=== PATIENT | female | born 1975 | race Hispanic/Latino ===

== ENCOUNTER 2019-01-27 12:02 | Emergency (ER) | payer SELFPAY ==
[2019-01-27 13:40] LABS: Eosinophils % 0.8 % (0-4.4); Hematocrit 38.5 % (36.0-45.0); Lymphocytes % 18.6 % (15.3-44.8); Monocytes % 8.5 % (3.3-12.3); RBC Red Blood Cell Count 4.39 M/uL (3.86-4.86)
[2019-01-27] MEDS ORDERED: HYDROCODONE/APAP 7.5/325 MG TAB ONE (13:45)
[2019-01-27] MEDS ORDERED: HYDROCODONE/APAP 10/325 TAB ONE (13:46)
[2019-01-27 14:14] LABS: ALT/SGPT 18 U/L (12-78); AST/SGOT 17 U/L (15-37); Albumin 3.2 g/dL (3.4-5.0); Alkaline Phosphatase 68 U/L (45-117); BUN Blood Urea Nitrogen 10 mg/dL (7-18); Bicarbonate 29 mmol/L (21-32); Bilirubin Total 0.5 mg/dL (0.2-1.0); Glucose Level 79 mg/dL (74-106); Potassium 3.6 mmol/L (3.5-5.1); Protein, Total 6.9 g/dL (6.4-8.2); Sodium Level 140 mmol/L (136-145)
--- NOTE | 2019-01-27 14:36 | ER ---
Nurse's Notes [facility] Name: Carmen Macias Age: 43 yrs Sex: Female : 1975 Arrival Date: 01/27/2019 Time: 12:05 Bed 23 Private MD: Diagnosis: Polyarthralgia Presentation: 01/27 12:09 Presenting complaint: Patient states: "all my joints have been hurting for about a week aa5 and I am taking Prednisone 5mg now but it's not helping". Pt also reports lower abd pain that began 1 week ago. Transition of care: patient was not received from another setting of care. Onset of symptoms was January 2019. Risk Assessment: Do you want to hurt yourself or someone else? Patient reports no desire to harm self or others. Initial Sepsis Screen: Does the patient meet any 2 criteria? No. Patient's initial sepsis screen is negative. Does the patient have a suspected source of infection? No. Patient's initial sepsis screen is negative. Care prior to arrival: None. 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 - Social history:: Smoking status: Patient uses tobacco products, 1 cigarette a day . - Ebola Screening: : No symptoms or risks identified at this time. Screenin:06 Abuse screen: Denies threats or abuse. Denies injuries from another. Nutritional ca1 screening: No deficits noted. Tuberculosis screening: No symptoms or risk factors identified. Fall Risk IV access (20 points). Assessment: 13:06 General: Appears in no apparent distress. comfortable, Behavior is calm, cooperative, ca1 appropriate for age. Pain: Complains of pain in all over Pain currently is 7 out of 10 on a pain scale. Pain began 2-3 days ago. Neuro: Level of Consciousness is awake, alert, obeys commands, Oriented to person, place, time, situation. Neuro: Reports dizziness. Cardiovascular: Heart tones S1 S2 present Capillary refill < 3 seconds Patient's skin is warm and dry. Respiratory: Airway is patent Respiratory effort is even, unlabored, Respiratory pattern is regular, symmetrical, Breath sounds are clear bilaterally. GI: Abdomen is round non-distended, Bowel sounds present X 4 quads. Abd is soft and non tender X 4 quads. : No deficits noted. No signs and/or symptoms were reported regarding the genitourinary system. EENT: No deficits noted. No signs and/or symptoms were reported regarding the EENT system. Derm: Skin is intact, is healthy with good turgor, Skin is pink, warm \\T\\ dry. Musculoskeletal: Circulation, motion, and sensation intact. Capillary refill < 3 seconds, Range of motion: intact in all extremities. 14:00 Reassessment: Patient appears in no apparent distress at this time. Patient and/or ca1 family updated on plan of care and expected duration. Pain level reassessed. Patient is alert, oriented x 3, equal unlabored respirations, skin warm/dry/pink. Vital Signs: 12:12 BP 181 / 107; Pulse 87; Resp 16 S; Temp 98.1(O); Pulse Ox 99% on R/A; Weight 79.38 kg aa5 (R); Height 5 ft. 0 in. (152.40 cm) (R); Pain 7/10; 14:00 BP 148 / 89; Pulse 72; Resp 16 A; Temp 97.6(O); Pulse Ox 97% ; ca1 12:12 Body Mass Index 34.18 (79.38 kg, 152.40 cm) aa5 ED Course: 12:05 Patient arrived in ED. rg4 12:09 Arm band placed on. aa5 12:11 Triage completed. aa5 12:13 Mark Kenney, RN is Primary Nurse. ae4 12:43 Vinny Catherine MD is Attending Physician. ps1 13:01 Primary Nurse role handed off by Mark Kenney, [place] ca1 13:01 Anjelica Velasquez, DE is Primary Nurse. ca1 13:06 Patient has correct armband on for positive identification. Placed in gown. Bed in low ca1 position. Call light in reach. Side rails up X 1. Pulse ox on. NIBP on. Warm blanket given. 13:06 No provider procedures requiring assistance completed. ca1 14:46 Patient did not have IV access during this emergency room visit. ca1 Administered Medications: 13:33 Drug: [place] 10 mg-325 mg 1 tabs Route: PO; ca1 14:40 Follow up: Response: No adverse reaction; Pain is decreased ca1 Outcome: 14:36 Discharge ordered by . ps1 14:46 Discharged to home ambulatory. ca1 14:46 Condition: stable 14:46 Discharge instructions given to patient, Instructed on discharge instructions, follow up and referral plans. medication usage, Demonstrated understanding of instructions, follow-up care, medications, Prescriptions given X 2. 14:47 Patient left the ED. ca1 Signatures: Cici Dave, RN RN aa5 Anni Molina rg4 Vinny Catherine MD MD ps1 Anjelica Velasquez RN RN ca1 Mark Kenney RN RN ae4
--- NOTE | 2019-01-27 14:37 | EDPHYS ---
Physician Documentation [facility] Name: Carmen Macias Age: 43 yrs Sex: Female : 1975 Arrival Date: 01/27/2019 Time: 12:05 Bed 23 Private MD: ED Physician Vinny Catherine HPI: 01/27 14:27 This 43 yrs old Female presents to ER via Ambulatory with complaints of Lupus ps1 Flare Up. 14:27 patient has a reported history of lupus. She has been seen and evaluated multiple times ps1 before in the past in [place] where she previously lived. She was referred to rheumatology previously but did not go 2/2 financial issues and lack of insurance. She was recently seen in [place] for same and rx'd norco. Previously mangaged with MTX and currently on prednisone but has tapered down because the doctor does not want her on chronic steroids and is not on alternative therapy. She states that she has polyarthralgia worse in the right ankle. Has subjective fever. No erythema to affected joints. No hx of kidney disease. . 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 - Social history:: Smoking status: Patient uses tobacco products, 1 cigarette a day . - Ebola Screening: : No symptoms or risks identified at this time. ROS: 14:27 Constitutional: Negative for fever, chills, and weight loss, Eyes: Negative for injury, ps1 pain, redness, and discharge, Cardiovascular: Negative for chest pain, palpitations, and edema, Respiratory: Negative for shortness of breath, cough, wheezing, and pleuritic chest pain, Abdomen/GI: Negative for abdominal pain, nausea, vomiting, diarrhea, and constipation, Skin: Negative for injury, rash, and discoloration. 14:27 MS/extremity: Positive for polyarthralgia of bilateral ankles and shoulders. No obvious deformity or erythema. . Exam: 14:27 Constitutional: This is a well developed, well nourished patient who is awake, alert, ps1 and in no acute distress. Head/Face: Normocephalic, atraumatic. Eyes: Pupils equal round and reactive to light, extra-ocular motions intact. Lids and lashes normal. Conjunctiva and sclera are non-icteric and not injected. Chest/axilla: Normal chest wall appearance and motion. Nontender with no deformity. No lesions are appreciated. Cardiovascular: Regular rate and rhythm. No gallops, murmurs, or rubs. Normal PMI, no JVD. No pulse deficits. Respiratory: Lungs have equal breath sounds bilaterally, clear to auscultation and percussion. No rales, rhonchi or wheezes noted. No increased work of breathing, no retractions or nasal flaring. Abdomen/GI: Soft, non-tender, with normal bowel sounds. No distension or tympany. No guarding or rebound. No evidence of tenderness throughout. MS/ Extremity: Pulses equal, no cyanosis. Neurovascular intact. Full, normal range of motion. Neuro: Awake and alert, GCS 15, oriented to person, place, time, and situation. Cranial nerves II-XII grossly intact. Sensory grossly intact. Psych: Awake, alert, with orientation to person, place and time. Behavior, mood, and affect are within normal limits. Vital Signs: 12:12 BP 181 / 107; Pulse 87; Resp 16 S; Temp 98.1(O); Pulse Ox 99% on R/A; Weight 79.38 kg aa5 (R); Height 5 ft. 0 in. (152.40 cm) (R); Pain 7/10; 14:00 BP 148 / 89; Pulse 72; Resp 16 A; Temp 97.6(O); Pulse Ox 97% ; ca1 12:12 Body Mass Index 34.18 (79.38 kg, 152.40 cm) aa5 MDM: 14:09 Patient medically screened. ps1 14:27 Data reviewed: vital signs, nurses notes, lab test result(s), and as a result, I will ps1 discharge patient. 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 ED course: referral to Rheumatology. Can use [facility]. Call access center. Home with medrol. No fever. Stable for discharge. . 01/27 13:03 Order name: CBC with Diff; Complete Time: 14:09 ps1 01/27 13:03 Order name: CMP; Complete Time: 14:26 ps1 01/27 13:03 Order name: ESR; Complete Time: 14:09 ps1 01/27 13:34 Order name: Urine Dipstick--Ancillary (enter results) em1 01/27 13:34 Order name: Urine --Ancillary (enter results) em1 01/27 13:34 Order name: Urine Dipstick-Ancillary (obtain specimen); Complete Time: 13:34 em1 01/27 13:34 Order name: Urine Test (obtain specimen); Complete Time: 13:34 em1 Administered Medications: 13:33 Drug: [place] 10 mg-325 mg 1 tabs Route: PO; ca1 14:40 Follow up: Response: No adverse reaction; Pain is decreased ca1 Disposition: 01/27/19 14:36 Discharged to Home. Impression: Polyarthralgia. - Condition is Stable. - Discharge Instructions: Systemic Lupus Erythematosus, Adult. - Prescriptions for Medrol (Suraj) 4 mg Oral Tablets, Dose Pack - take 1 tablet by ORAL route as directed - follow package instructions; 1 packet. Ultram 50 mg Oral Tablet - take 1 tablet by ORAL route every 6 hours As needed; 12 tablet. - Medication Reconciliation Form, Thank You Letter, Antibiotic Education, Prescription Opioid Use form. - Follow up: Emergency Department; When: As needed; Reason: Fever > 102 F, Trouble breathing, Worsening of condition. Follow up: Private Physician; When: As needed; Reason: If symptoms return, Further diagnostic work-up, Recheck today's complaints, Continuance of care. - Problem is an acute exacerbation. - Symptoms are unchanged. Signatures: Dispatcher [employer] EDEMS Graeme Sosa em1 Cici Dave, RN RN aa5 Vinny Catherine MD MD ps1 Anjelica Velasquez RN RN ca1 Corrections: (The following items were deleted from the chart) 14:30 14:27 patient has a reported history of lupus. She has been seen and evaluated multiple ps1 times before in the past in [place] where she previously lived. She was referred to rheumatology previously but did not go 2/2 financial issues and lack of insurance. She was recently seen in [place] for same and rx'd noroh. She states that she has polyarthralgia worse in the right ankle. Has subjective fever. No erythema to affected joints. No hx of kidney disease. . ps1 14:47 14:36 01/27/2019 14:36 Discharged to Home. Impression: Polyarthralgia. Condition is ca1 Stable. Forms are Medication Reconciliation Form, Thank You Letter, Antibiotic Education, Prescription Opioid Use. Follow up: Emergency Department; When: As needed; Reason: Fever > 102 F, Trouble breathing, Worsening of condition. Follow up: Private Physician; When: As needed; Reason: If symptoms return, Further diagnostic work-up, Recheck today's complaints, Continuance of care. Problem is an acute exacerbation. Symptoms are unchanged. ps1
[2019-01-27 15:20] LABS: Urine Blood NEGATIVE (NEG); Urine Glucose NEGATIVE (NEG); Urine Protein TRACE (NEG); Urine Specific Gravity 1.025 (1.005-1.030)
== END 2019-01-27 14:47 | disposition home or self-care (01) ==
LOC: ER 12:02
DX: M25.50 Pain in unspecified joint (principal); M32.9 Systemic lupus erythematosus, unspecified; F31.9 Bipolar disorder, unspecified; Z72.0 Tobacco use
CPT/HCPCS: 36415; 80053; 81003; 81025; 85025; 85652; 99283

== ENCOUNTER 2019-01-30 13:28 | Emergency (ER) | payer SELFPAY ==
[2019-01-30 14:51] LABS: Urine Blood NEGATIVE (NEG); Urine Glucose NEGATIVE (NEG); Urine Protein 1+ (NEG); Urine Specific Gravity 1.025 (1.005-1.030); Urine pH 5.5 (5.0-7.0)
[2019-01-30] MEDS ORDERED: FLUCONAZOLE 100 MG TAB ONE (16:05)
--- NOTE | 2019-01-30 16:48 | ER ---
Nurse's Notes [facility] Name: Carmen Macias Age: 43 yrs Sex: Female : 1975 Arrival Date: 01/30/2019 Time: 13:30 Bed 7 Private MD: Diagnosis: Bacterial Vaginosis Presentation: 01/30 14:07 Presenting complaint: Patient states: Suprapubic/lower abdominal pain x 3 weeks, ph irregular menses w/ 3 periods this month, and foul smelling odor from vagina, states, " I did have unprotected sex w/ someone a few weeks ago." Denies fever, N/V/D. Transition of care: patient was not received from another setting of care. Onset of symptoms was January 30, 2019. Risk Assessment: Do you want to hurt yourself or someone else? Patient reports no desire to harm self or others. Initial Sepsis Screen: Does the patient meet any 2 criteria? No. Patient's initial sepsis screen is negative. Does the patient have a suspected source of infection? Yes: Dysuria/Frequency/Urgency/UTI. Care prior to arrival: None. 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 - Social history:: Smoking status: Patient uses tobacco products, denies chronic smoking, but will smoke occasionally. - Ebola Screening: : No symptoms or risks identified at this time. Screenin:55 Abuse screen: Denies threats or abuse. Denies injuries from another. Nutritional sg screening: No deficits noted. Tuberculosis screening: No symptoms or risk factors identified. Never had TB. Fall Risk None identified. Assessment: 15:10 General: Appears in no apparent distress. uncomfortable, well developed, Behavior is sv calm, cooperative, appropriate for age. Pain: Complains of pain in pelvis. Neuro: Level of Consciousness is awake, alert, obeys commands, Oriented to person, place, time, situation, Moves all extremities. Full function Gait is steady. Respiratory: Respiratory effort is even, unlabored, Respiratory pattern is regular, symmetrical. GI: Abdomen is round non-distended, Abd is soft and non tender X 4 quads. Reports lower abdominal pain, cramping. : Reports burning with urination, vaginal pain. : Reports foul vaginal odor. Derm: Skin is pink, warm \\T\\ dry. 16:50 Reassessment: Patient appears in no apparent distress at this time. Patient and/or sg family updated on plan of care and expected duration. Pain level reassessed. Patient is alert, oriented x 3, equal unlabored respirations, skin warm/dry/pink. pt requesting to go home at this time, pt updated on results, informed that discharge orders are put in and will be discharged to home Patient states feeling better. 17:14 Reassessment: pt wishes to be contacted at [phone]. sg Vital Signs: 14:12 BP 170 / 109; Pulse 78; Resp 18; Temp 98.0; Pulse Ox 100% on R/A; Weight 77.11 kg; ph 16:00 BP 136 / 87; Pulse 77; Resp 17; Temp 98.0; Pulse Ox 100% on R/A; sg ED Course: 13:30 Patient arrived in ED. as 14:11 Triage completed. ph 14:12 Arm band placed on Patient placed in an exam room. ph 14:17 Terrance Moe MD is Attending Physician. kdr 14:17 Cinthya Lott, [place] is Primary Nurse. sv 14:21 Urine collected: clean catch specimen, cloudy, antony colored. jb1 14:50 Patient has correct armband on for positive identification. Bed in low position. Call ss light in reach. Side rails up X2. Pulse ox on. NIBP on. 15:10 Assist provider with pelvic exam: Set up pelvic tray. Performed by Terrance Moe MD sv Specimens sent to lab. Patient tolerated well. 16:55 No provider procedures requiring assistance completed. Patient did not have IV access sg during this emergency room visit. Administered Medications: 16:05 Drug: DiFLUcan 150 mg Route: PO; sg 16:15 Follow up: Response: No adverse reaction sv Outcome: 16:47 Discharge ordered by . kdr 16:58 Discharged to home ambulatory, with family. sg 16:58 Condition: good 16:58 Discharge instructions given to patient, Instructed on discharge instructions, follow up and referral plans. no drinking with medication, medication usage, safe sex practices, control, Demonstrated understanding of instructions, follow-up care, medications, Prescriptions given X 1. Signatures: Misha Tesfaye jb1 Cinthya Lott RN RN Antoni Membreno RN RN Terrance Moe MD MD [facility] Rachel Sosa Shelby, RN RN Joselin Mckinnon RN RN ph Corrections: (The following items were deleted from the chart) 17:02 16:58 Patient left the ED. [facility] 17: 16:55 Discharged to home ambulatory, with family, [facility] 17: 16:55 Condition: [facility] 17: 16:55 Discharge instructions given to patient, Instructed on discharge instructions, ss follow up and referral plans. no drinking with medication, medication usage, safe sex practices, safety practices, control, Demonstrated understanding of instructions, follow-up care, medications, Prescriptions given X 1, 17: 16:55 No provider procedures requiring assistance completed. [facility] 17: 16:55 Patient did not have IV access during this emergency room visit. [facility] 17: 16:00 BP 136 / 87; Pulse 77bpm; Resp 17bpm; Pulse Ox 100% RA; Temp 98.0F; [facility] 17: 14:55 Abuse screen: Denies threats or abuse. Denies injuries from another. [facility] 17: 14:55 Nutritional screening: No deficits noted. [facility] 17: 14:55 Tuberculosis screening: No symptoms or risk factors identified. Never had TB. [facility] 17: 14:55 Fall Risk None identified. [facility]
--- NOTE | 2019-01-30 16:48 | EDPHYS ---
Physician Documentation [facility] Name: Carmen Macias Age: 43 yrs Sex: Female : 1975 Arrival Date: 01/30/2019 Time: 13:30 Bed 7 Private MD: ED Physician Terrance Moe HPI: 01/30 19:06 This 43 yrs old Female presents to ER via Ambulatory with complaints of kdr Abdominal Pain. 19:06 The patient presents with abdominal pain in the lower abdomen. Onset: The kdr symptoms/episode began/occurred gradually, 2 week(s) ago. The symptoms do not radiate. Associated signs and symptoms: Pertinent positives: vaginal discharge, Foul smelling . The symptoms are described as achy, burning, vague. Modifying factors: The symptoms are alleviated by nothing, the symptoms are aggravated by nothing. Severity of pain: At its worst the pain was mild in the emergency department the pain is unchanged. The patient has not experienced similar symptoms in the past. The patient has not recently seen a physician. Had unprotected sex about a month ago. 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 - Social history:: Smoking status: Patient uses tobacco products, denies chronic smoking, but will smoke occasionally. - Ebola Screening: : No symptoms or risks identified at this time. ROS: 19:06 Constitutional: Negative for fever, chills, and weight loss, Eyes: Negative for injury, kdr pain, redness, and discharge, ENT: Negative for injury, pain, and discharge, Neck: Negative for injury, pain, and swelling, Cardiovascular: Negative for chest pain, palpitations, and edema, Respiratory: Negative for shortness of breath, cough, wheezing, and pleuritic chest pain, Abdomen/GI: Negative for abdominal pain, nausea, vomiting, diarrhea, and constipation, Back: Negative for injury and pain, MS/Extremity: Negative for injury and deformity, Skin: Negative for injury, rash, and discoloration, Neuro: Negative for headache, weakness, numbness, tingling, and seizure activity. Psych: Negative for depression, anxiety, suicide ideation, homicidal ideation, and hallucinations, Allergy/Immunology: Negative for hives, rash, and allergies, Endocrine: Negative for neck swelling, polydipsia, polyuria, polyphagia, and marked weight changes, Hematologic/Lymphatic: Negative for swollen nodes, abnormal bleeding, and unusual bruising. 19:06 : Positive for vaginal discharge, vaginal itching. Exam: 19:06 Constitutional: This is a well developed, well nourished patient who is awake, alert, kdr and in no acute distress. Head/Face: Normocephalic, atraumatic. Eyes: Pupils equal round and reactive to light, extra-ocular motions intact. Lids and lashes normal. Conjunctiva and sclera are non-icteric and not injected. Cornea within normal limits. Periorbital areas with no swelling, redness, or edema. Neck: Trachea midline, no thyromegaly or masses palpated, and no cervical lymphadenopathy. Supple, full range of motion without nuchal rigidity, or vertebral point tenderness. No Meningismus. Chest/axilla: Normal chest wall appearance and motion. Nontender with no deformity. No lesions are appreciated. Cardiovascular: Regular rate and rhythm with a normal S1 and S2. No gallops, murmurs, or rubs. Normal PMI, no JVD. No pulse deficits. Respiratory: Lungs have equal breath sounds bilaterally, clear to auscultation and percussion. No rales, rhonchi or wheezes noted. No increased work of breathing, no retractions or nasal flaring. Back: No spinal tenderness. No costovertebral tenderness. Full range of motion. Skin: Warm, dry with normal turgor. Normal color with no rashes, no lesions, and no evidence of cellulitis. MS/ Extremity: Pulses equal, no cyanosis. Neurovascular intact. Full, normal range of motion. Neuro: Awake and alert, GCS 15, oriented to person, place, time, and situation. Cranial nerves II-XII grossly intact. Motor strength 5/5 in all extremities. Sensory grossly intact. Cerebellar exam normal. Normal gait. Psych: Awake, alert, with orientation to person, place and time. Behavior, mood, and affect are within normal limits. 19:06 Abdomen/GI: Inspection: abdomen appears normal, Bowel sounds: normal, Palpation: soft, nontender. 19:06 : CVA tenderness, is absent, Pelvic Exam: External exam: is normal, Speculum exam: no bleeding is noted, no cervicitis, Yeast like vaginal discharge and foul oder. Vital Signs: 14:12 BP 170 / 109; Pulse 78; Resp 18; Temp 98.0; Pulse Ox 100% on R/A; Weight 77.11 kg; ph 16:00 BP 136 / 87; Pulse 77; Resp 17; Temp 98.0; Pulse Ox 100% on R/A; sg MDM: 16:47 Patient medically screened. kdr 19:06 Data reviewed: vital signs, nurses notes, lab test result(s), radiologic studies. kdr Counseling: I had a detailed discussion with the patient and/or guardian regarding: the historical points, exam findings, and any diagnostic results supporting the discharge/admit diagnosis, lab results, the need for outpatient follow up. 01/30 14:20 Order name: Urine Dipstick--Ancillary (enter results); Complete Time: 15:05 ag 01/30 14:20 Order name: Urine --Ancillary (enter results); Complete Time: 15:05 ag 01/30 15:22 Order name: GC (GONORR/CHLAMYDIA) Probe sv 01/30 15:22 Order name: Wet Prep sv Administered Medications: 16:05 Drug: DiFLUcan 150 mg Route: PO; sg 16:15 Follow up: Response: No adverse reaction sv Disposition: 01/30/19 16:47 Discharged to Home. Impression: Bacterial Vaginosis. - Condition is Stable. - Discharge Instructions: Bacterial Vaginosis, [id number]. - Prescriptions for Flagyl 500 mg Oral Tablet - take 1 tablet by ORAL route every 12 hours for 7 days; 14 tablet. - Medication Reconciliation Form, Thank You Letter, Antibiotic Education form. - Follow up: Private Physician; When: 2 - 3 days; Reason: If symptoms return, Further diagnostic work-up, Recheck today's complaints, Continuance of care, Re-evaluation by your physician. - Problem is new. - Symptoms have improved. Signatures: Dispatcher [employer] Antoni Coon RN RN Terrance Moe MD MD [facility] Breonna Juarez RN RN ss Joselin Mckinnon RN RN ph Kaylie, Cinthya KC sv Corrections: (The following items were deleted from the chart) 15:28 15:06 BASIC METABOLIC PANEL+C.LAB.BRZ ordered. EDMS EDMS 15:28 15:06 HEPATIC FUNCTION+C.LAB.BRZ ordered. EDMS EDMS 15:28 15:06 LIPASE+C.LAB.BRZ ordered. EDMS EDMS 15:29 15:06 CBC+H.LAB.BRZ ordered. EDMS EDMS 15:29 15:06 Creatinine for Radiology+C.LAB.BRZ ordered. EDMS EDMS 16:13 15:05 IV Saline Lock ordered. kdr sg 16:13 15:05 Labs collected and sent ordered. kdr sg 16:58 16:47 01/30/2019 16:47 Discharged to Home. Impression: Bacterial Vaginosis. Condition ss is Stable. Forms are Medication Reconciliation Form, Thank You Letter, Antibiotic Education, Prescription Opioid Use. Follow up: Private Physician; When: 2 - 3 days; Reason: If symptoms return, Further diagnostic work-up, Recheck today's complaints, Continuance of care, Re-evaluation by your physician. Problem is new. Symptoms have improved. kdr
[2019-02-02 01:58] LABS: C.trachomatis RNA,TMA Not Detected (Not Detected)
== END 2019-01-30 16:58 | disposition home or self-care (01) ==
LOC: ER 13:28
DX: N76.0 Acute vaginitis (principal); F31.9 Bipolar disorder, unspecified; Z72.0 Tobacco use
CPT/HCPCS: 81003; 81025; 87210; 87490; 87590; 99284

== ENCOUNTER 2019-02-23 16:47 | Emergency (ER) | payer SELFPAY ==
[2019-02-23 18:00] LABS: Urine Blood TRACE (NEG); Urine Glucose NEGATIVE (NEG); Urine Protein NEGATIVE (NEG)
[2019-02-23 18:07] LABS: Urine Bacteria 20-50 /HPF (<20)
[2019-02-23 18:08] LABS: Urine Amorphous Sediment TRACE /HPF (NONE SEEN); Urine Culture Reflex Order ND; Urine Mucus 2+ /HPF (NONE SEEN)
[2019-02-23 18:10] LABS: Basophils % 1.4 % (0-1.3); Hematocrit 38.7 % (36.0-45.0); Lymphocytes % 24.9 % (15.3-44.8); MPV 7.6 fL (7.6-11.3); RBC Red Blood Cell Count 4.49 M/uL (3.86-4.86)
[2019-02-23] MEDS ORDERED: ONDANSETRON 4 MG/2 ML VIAL ONE (18:19)
[2019-02-23] MEDS ORDERED: NA CHLORIDE 0.9% 1,000 ML ONE (18:19)
[2019-02-23 18:39] LABS: ALT/SGPT 25 U/L (12-78); AST/SGOT 16 U/L (15-37); Albumin 3.1 g/dL (3.4-5.0); Alkaline Phosphatase 86 U/L (45-117); BUN Blood Urea Nitrogen 15 mg/dL (7-18); Bicarbonate 28 mmol/L (21-32); Bilirubin Direct < 0.1 mg/dL (0-0.2); Bilirubin Total 0.2 mg/dL (0.2-1.0); Glucose Level 106 mg/dL (74-106); Potassium 3.4 mmol/L (3.5-5.1); Protein, Total 7.3 g/dL (6.4-8.2); Sodium Level 141 mmol/L (136-145)
[2019-02-23] MEDS ORDERED: dexAMETHasone 10 MG/ML VIAL ONE ×2 (19:18→19:19)
--- NOTE | 2019-02-23 19:29 | ER ---
Nurse's Notes [facility] Name: Carmen Macias Age: 43 yrs Sex: Female : 1975 Arrival Date: 02/23/2019 Time: 16:50 Bed 25 Private MD: Diagnosis: Other chronic pain Presentation: 02/23 16:52 Presenting complaint: Patient states: hx of lupus; "i think i have lupus flare, pain hj all over my body and its getting worse since , i think i need prednisone"; reports fever;. Transition of care: patient was not received from another setting of care. Onset of symptoms was February 23, 2019. Risk Assessment: Do you want to hurt yourself or someone else? Patient reports no desire to harm self or others. Initial Sepsis Screen: Does the patient meet any 2 criteria? No. Patient's initial sepsis screen is negative. Does the patient have a suspected source of infection? No. Patient's initial sepsis screen is negative. Care prior to arrival: None. 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 - Social history:: Smoking status: unknown. - Ebola Screening: : No symptoms or risks identified at this time. Screenin:23 Abuse screen: Denies threats or abuse. Denies injuries from another. Nutritional rv screening: No deficits noted. Tuberculosis screening: No symptoms or risk factors identified. Fall Risk None identified. Assessment: 17:23 General: Appears in no apparent distress. uncomfortable, Behavior is calm, cooperative. rv Pain: Complains of pain in GENERALIZED. Neuro: Level of Consciousness is awake, alert, obeys commands, Oriented to person, place, time, situation. Cardiovascular: Patient's skin is warm and dry. Respiratory: Airway is patent. GI: No signs and/or symptoms were reported involving the gastrointestinal system. : No signs and/or symptoms were reported regarding the genitourinary system. EENT: No signs and/or symptoms were reported regarding the EENT system. Derm: Skin is intact. Musculoskeletal: Reports pain in GENERALIZED. Vital Signs: 16:54 BP 169 / 109; Pulse 102; Resp 18; Temp 97.8(O); Pulse Ox 98% on R/A; Weight 81.65 kg; hj Height 5 ft. 0 in. (152.40 cm); Pain 10/10; 19:30 BP 116 / 89; Pulse 81; Resp 18; Pulse Ox 100% on R/A; rv 16:54 Body Mass Index 35.15 (81.65 kg, 152.40 cm) hj ED Course: 16:50 Patient arrived in ED. mr 16:53 Triage completed. hj 16:54 Arm band placed on left wrist. hj 17:04 Singh Rey PA is PHCP. cp 17:04 Mik Boyd MD is Attending Physician. cp 17:22 Ok Coker RN is Primary Nurse. rv 17:24 Patient has correct armband on for positive identification. Bed in low position. Call rv light in reach. Side rails up X 1. Adult w/ patient. Pulse ox on. NIBP on. 18:30 Inserted saline lock: 22 gauge in left forearm, using aseptic technique. Blood rv collected. 19:33 No provider procedures requiring assistance completed. IV discontinued, intact, rv bleeding controlled, No redness/swelling at site. Pressure dressing applied. Administered Medications: 18:24 Drug: TORadol 30 mg Route: IVP; Site: left antecubital; rv 19:31 Follow up: Response: Marked relief of symptoms; Pain is decreased rv 18:24 Drug: NS 0.9% 1000 ml Route: IV; Rate: 1 bolus; Site: left antecubital; rv 19:31 Follow up: IV Status: Completed infusion; IV Intake: 1000ml rv 19:30 Drug: Decadron - Dexamethasone 10 mg Route: IVP; Site: left forearm; rv 19:31 Follow up: Response: Medication administered at discharge. rv Intake: 19:31 IV: 1000ml; Total: 1000ml. rv Outcome: 19:28 Discharge ordered by . cp 19:33 Discharged to home ambulatory. rv 19:33 Condition: stable 19:33 Discharge instructions given to patient, Instructed on discharge instructions, follow up and referral plans. Demonstrated understanding of instructions, follow-up care. 19:39 Patient left the ED. rv Signatures: Pina DelacruzSonny RN RN hj Singh Rey PA PA cp Vicente, Ronaldo, RN RN rv Corrections: (The following items were deleted from the chart) 16:56 16:54 Pulse 102bpm; Resp 18bpm; Pulse Ox 98% RA; Temp 97.8F Oral; 81.65 kg; Height 5 hj ft. 0 in.; BMI: 35.1; Pain 10/10; hj
--- NOTE | 2019-02-23 19:29 | EDPHYS ---
Physician Documentation [facility] Name: Carmen Macias Age: 43 yrs Sex: Female : 1975 Arrival Date: 02/23/2019 Time: 16:50 Bed 25 Private MD: ED Physician Mik Boyd HPI: 02/23 17:50 This 43 yrs old Female presents to ER via Ambulatory with complaints of Pain cp All Over. 17:50 generalized pain and joint pain. Patient reports history of Lupus and recently moving to [place]. Patient reports increasing generalized and multiple joint pain and a flare up of Lupus. Reports subjective fever. Patient admits to not following up with primary physician or rheumatology since last visit to this ED due to financial cost and lack of insurance. 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 - Social history:: Smoking status: unknown. - Ebola Screening: : No symptoms or risks identified at this time. ROS: 18:00 Constitutional: Positive for generalized pain, Negative for body aches, chills, fever, cp poor PO intake. 18:00 Cardiovascular: Negative for chest pain, edema, palpitations. 18:00 Respiratory: Negative for cough, shortness of breath, wheezing. 18:00 Abdomen/GI: Negative for abdominal pain, nausea, vomiting, and diarrhea, constipation, black/tarry stool, rectal bleeding. 18:00 MS/extremity: Positive for generalized joint pain, Negative for injury or acute deformity, paresthesias. 18:00 Skin: Negative for cellulitis, rash. 18:00 Neuro: Negative for altered mental status, headache, weakness. 18:00 All other systems are negative. Exam: 18:05 Constitutional: The patient appears in no acute distress, alert, awake, cp non-diaphoretic, non-toxic, well developed, well nourished. 18:05 Head/Face: Normocephalic, atraumatic. cp 18:05 Eyes: Periorbital structures: appear normal, Conjunctiva: normal, no exudate, no injection, Sclera: no appreciated abnormality, Lids and lashes: appear normal, bilaterally. 18:05 ENT: External ear(s): are unremarkable, Nose: is normal, Mouth: is normal, Posterior pharynx: is normal, airway is patent, no erythema, no exudate. 18:05 Neck: ROM/movement: is normal, is supple, no meningismus, no nuchal rigidity. 18:05 Chest/axilla: Inspection: normal, Palpation: is normal, no crepitus, no tenderness. 18:05 Cardiovascular: Rate: tachycardic, Rhythm: regular, Edema: is not appreciated, JVD: is not appreciated. 18:05 Respiratory: the patient does not display signs of respiratory distress, Respirations: normal, no use of accessory muscles, no retractions, no splinting, no tachypnea, labored breathing, is not present, Breath sounds: are clear throughout, no decreased breath sounds, no stridor, no wheezing. 18:05 Abdomen/GI: Inspection: abdomen appears normal, Palpation: abdomen is soft and non-tender, in all quadrants. 18:05 Musculoskeletal/extremity: ROM: intact in all extremities, Circulation is intact in all extremities. Joints: All joints are normal except pain in multiple joints without significant swelling or erythema noted. 18:05 Skin: cellulitis, is not appreciated, no rash present. 18:05 Neuro: Orientation: to person, place \T\ time. Mentation: is normal, Motor: moves all fours, strength is normal, Sensation: is normal, Gait: is steady. Vital Signs: 16:54 BP 169 / 109; Pulse 102; Resp 18; Temp 97.8(O); Pulse Ox 98% on R/A; Weight 81.65 kg; hj Height 5 ft. 0 in. (152.40 cm); Pain 10/10; 19:30 BP 116 / 89; Pulse 81; Resp 18; Pulse Ox 100% on R/A; rv 16:54 Body Mass Index 35.15 (81.65 kg, 152.40 cm) hj MDM: 17:28 Patient medically screened. cp 19:27 Data reviewed: vital signs, nurses notes, lab test result(s). cp 19:27 Differential Diagnosis sepsis, flare up of lupus, rheumatoid arthritis. Counseling: I cp had a detailed discussion with the patient and/or guardian regarding: the historical points, exam findings, and any diagnostic results supporting the discharge/admit diagnosis, lab results, the need for outpatient follow up, for definitive care, a family practitioner, a liquid yeast supervisor, to return to the emergency department if symptoms worsen or persist or if there are any questions or concerns that arise at home. Response to treatment: pain improved, and as a result, I will discharge patient. Special discussion: Based on the history and exam findings, there is no indication for further emergent testing or inpatient evaluation. I discussed with the patient/guardian the need to see the liquid yeast supervisor for further evaluation of the symptoms. 02/23 17:44 Order name: Urine Microscopic Only; Complete Time: 18:30 cp 02/23 18:30 Interpretation: Normal except: URBC 5-10; UBACT 20-50; SQEPI 20-50. 02/23 17:46 Order name: CBC with Diff 02/23 19:14 Interpretation: Normal except: BASO% 1.4. 02/23 17:46 Order name: BMP; Complete Time: 19:13 02/23 19:14 Interpretation: Normal except: K 3.4; CRE 0.51. 02/23 17:46 Order name: LFT's; Complete Time: 19:13 cp 02/23 19:14 Interpretation: Normal except: ALB 3.1; GLOB 4.2; A/G 0.7. 02/23 17:46 Order name: Sed Rate 02/23 17:52 Order name: Urine Dipstick--Ancillary (enter results) 02/23 18:20 Order name: Manual Differential EDMS Administered Medications: 18:24 Drug: TORadol 30 mg Route: IVP; Site: left antecubital; rv 19:31 Follow up: Response: Marked relief of symptoms; Pain is decreased rv 18:24 Drug: NS 0.9% 1000 ml Route: IV; Rate: 1 bolus; Site: left antecubital; rv 19:31 Follow up: IV Status: Completed infusion; IV Intake: 1000ml rv 19:30 Drug: Decadron - Dexamethasone 10 mg Route: IVP; Site: left forearm; rv 19:31 Follow up: Response: Medication administered at discharge. rv Disposition: 19:45 Chart complete. cp Disposition: 02/23/19 19:28 Discharged to Home. Impression: Other chronic pain. - Condition is Stable. - Discharge Instructions: Chronic Pain. - Prescriptions for Medrol (Suraj) 4 mg Oral Tablets, Dose Pack - take 1 tablet by ORAL route as directed - follow package instructions; 1 packet. - Medication Reconciliation Form, Thank You Letter, Antibiotic Education, Prescription Opioid Use form. - Follow up: Private Physician; When: 2 - 3 days; Reason: Recheck today's complaints. - Problem is an ongoing problem. - Symptoms have improved. Addendum: 02/25/2019 19:42 Co-signature as Attending Physician, Mik Boyd MD. r n Signatures: Dispatcher [employer] EDKY Mik Boyd MD MD rn Sonny Rivera RN RN hj Singh Rey PA PA cp Ok Coker RN RN rv Corrections: (The following items were deleted from the chart) 02/23 19:39 19:28 02/23/2019 19:28 Discharged to Home. Impression: Other chronic pain. Condition is rv Stable. Forms are Medication Reconciliation Form, Thank You Letter, Antibiotic Education, Prescription Opioid Use. Follow up: Private Physician; When: 2 - 3 days; Reason: Recheck today's complaints. Problem is an ongoing problem. Symptoms have improved. cp
[2019-02-23 20:32] LABS: Blood Morphology Comment NOT SEEN (NOT SEEN); Platelet Estimate ADEQ
== END 2019-02-23 19:39 | disposition home or self-care (01) ==
LOC: ER 16:47
DX: G89.29 Other chronic pain (principal); F31.9 Bipolar disorder, unspecified
CPT/HCPCS: 36415; 80048; 80076; 81003; 81015; 85025; 85652; 99284; J1100; J2405; J7030

== ENCOUNTER 2019-03-20 08:58 | Emergency (ER) | payer SELFPAY ==
[2019-03-20] MEDS ORDERED: dexAMETHasone 10 MG/ML VIAL ONE (10:04)
[2019-03-20] MEDS ORDERED: KETOROLAC 30 MG/ML INJ ONE (10:05)
[2019-03-20] MEDS ORDERED: ONDANSETRON 4 MG/2 ML VIAL ONE (10:05)
[2019-03-20] MEDS ORDERED: NA CHLORIDE 0.9% 500 ML ONE (10:05)
[2019-03-20 11:11] LABS: Absolute Lymphocytes (CBC) 1.8 K/uL (0.7-4.9); Basophils % 1.1 % (0-1.3); Lymphocytes % 20.5 % (15.3-44.8); MPV 7.8 fL (7.6-11.3); RBC Red Blood Cell Count 4.37 M/uL (3.86-4.86)
[2019-03-20 11:25] LABS: BUN Blood Urea Nitrogen 10 mg/dL (7-18); Bicarbonate 28 mmol/L (21-32); Glucose Level 99 mg/dL (74-106); Potassium 3.4 mmol/L (3.5-5.1); Sodium Level 140 mmol/L (136-145)
--- NOTE | 2019-03-20 11:37 | EDPHYS ---
Physician Documentation [facility] Name: Carmen Macias Age: 43 yrs Sex: Female : 1975 Arrival Date: 03/20/2019 Time: 09:01 Bed 8 Private MD: ED Physician Terrance Moe HPI: 03/20 14:02 This 43 yrs old Female presents to ER via Wheelchair with complaints of Pain kdr All Over. 14:02 The patient had run out of her lupus medications and states that she was having pain in kdr all of her joints. Onset: The symptoms/episode began/occurred gradually, 1 week(s) ago. Severity of symptoms: At their worst the symptoms were mild just prior to arrival, in the emergency department the symptoms are unchanged. The patient has experienced similar episodes in the past, multiple times. The patient has not recently seen a physician. Historical: - Allergies: 09:29 No Known Allergies; ss - Home Meds: : unknown bipolar medication [Active]; ss - PMHx: : Bipolar disorder; Lupus; ss - PSHx: :29 ; ss - Immunization history:: Adult Immunizations up to date. - Social history:: Smoking status: Patient uses tobacco products, 2 cigarettes/ day. - Ebola Screening: : Patient denies exposure to infectious person Patient denies travel to an Ebola-affected area in the 21 days before illness onset. ROS: 14:02 Constitutional: Negative for fever, chills, and weight loss, Eyes: Negative for injury, kdr pain, redness, and discharge, Neck: Negative for injury, pain, and swelling, Cardiovascular: Negative for chest pain, palpitations, and edema, Respiratory: Negative for shortness of breath, cough, wheezing, and pleuritic chest pain, Abdomen/GI: Negative for abdominal pain, nausea, vomiting, diarrhea, and constipation, Back: Negative for injury and pain, : Negative for injury, bleeding, discharge, and swelling, Neuro: Negative for headache, weakness, numbness, tingling, and seizure activity. Psych: Negative for depression, anxiety, suicide ideation, homicidal ideation, and hallucinations, Allergy/Immunology: Negative for hives, rash, and allergies, Endocrine: Negative for neck swelling, polydipsia, polyuria, polyphagia, and marked weight changes, Hematologic/Lymphatic: Negative for swollen nodes, abnormal bleeding, and unusual bruising. 14:02 MS/extremity: Positive for The patient has swollen and painful joints in both upper and lower extremities. Exam: 14:02 Constitutional: This is a well developed, well nourished patient who is awake, alert, kdr and in mild to moderate distress. Head/Face: Normocephalic, atraumatic. Eyes: Pupils equal round and reactive to light, extra-ocular motions intact. Lids and lashes normal. Conjunctiva and sclera are non-icteric and not injected. Cornea within normal limits. Periorbital areas with no swelling, redness, or edema. Neck: Trachea midline, no thyromegaly or masses palpated, and no cervical lymphadenopathy. Supple, full range of motion without nuchal rigidity, or vertebral point tenderness. No Meningismus. Chest/axilla: Normal chest wall appearance and motion. Nontender with no deformity. No lesions are appreciated. Cardiovascular: Regular rate and rhythm with a normal S1 and S2. No gallops, murmurs, or rubs. Normal PMI, no JVD. No pulse deficits. Respiratory: Lungs have equal breath sounds bilaterally, clear to auscultation and percussion. No rales, rhonchi or wheezes noted. No increased work of breathing, no retractions or nasal flaring. Abdomen/GI: Soft, non-tender, with normal bowel sounds. No distension or tympany. No guarding or rebound. No evidence of tenderness throughout. Back: No spinal tenderness. No costovertebral tenderness. Full range of motion. Skin: Warm, dry with normal turgor. Normal color with no rashes, no lesions, and no evidence of cellulitis. Neuro: Awake and alert, GCS 15, oriented to person, place, time, and situation. Cranial nerves II-XII grossly intact. Motor strength 5/5 in all extremities. Sensory grossly intact. Cerebellar exam normal. Normal gait. Psych: Awake, alert, with orientation to person, place and time. Behavior, mood, and affect are within normal limits. 14:02 Musculoskeletal/extremity: The patient has diffuse and swollen hands knees and ankles. Vital Signs: 09:29 BP 142 / 109 LA Sitting; Pulse 81; Resp 18; Temp 99.0(TE); Pulse Ox 100% on R/A; Weight ss 81.65 kg; Height 5 ft. 0 in. (152.40 cm); Pain 8/10; 09:29 BP 162 / 111 RA Sitting; ss 10:15 BP 159 / 93; Pulse 62; Resp 22; Pulse Ox 100% ; sv 11:12 BP 163 / 96; Pulse 66; Resp 20; Pulse Ox 98% ; sv 11:56 BP 143 / 93; Pulse 70; Resp 18; Pulse Ox 100% ; sv 09:29 Body Mass Index 35.15 (81.65 kg, 152.40 cm) MDM: 11:36 Patient medically screened. kdr 14:02 Data reviewed: vital signs, nurses notes, lab test result(s). Counseling: I had a kdr detailed discussion with the patient and/or guardian regarding: the historical points, exam findings, and any diagnostic results supporting the discharge/admit diagnosis, lab results, the need for outpatient follow up. ED course: The patient had significant improvement with the interventions given. She was feeling much better at time of discharge though her s/s had not completely resolved.. 03/20 10:00 Order name: Urine Dipstick--Ancillary (enter results) eb 03/20 10:00 Order name: Urine --Ancillary (enter results) eb 03/20 10:31 Order name: CBC with Diff kdr 03/20 10:31 Order name: Chem 7 kdr 03/20 11:16 Order name: CBC with Automated Diff; Complete Time: 11:33 EDMS 03/20 11:26 Order name: Basic Metabolic Panel EDMS Administered Medications: 10:10 Drug: NS 0.9% 500 ml Route: IV; Rate: bolus; Site: right wrist; sv 10:40 Follow up: Response: No adverse reaction; IV Status: Completed infusion; IV Intake: sv 500ml 10:10 Drug: Zofran 4 mg Route: IVP; Site: right wrist; sv 10:40 Follow up: Response: No adverse reaction sv 10:12 Drug: TORadol - Ketorolac 15 mg Route: IVP; Site: right wrist; sv 10:40 Follow up: Response: No adverse reaction; Marked relief of symptoms sv 10:14 Drug: Decadron - Dexamethasone 10 mg Route: IVP; Site: right wrist; sv 10:40 Follow up: Response: No adverse reaction sv 10:15 CANCELLED (Physician Discretion): Dexamethasone 10 mg IM once sv Disposition: 03/20/19 11:36 Discharged to Home. Impression: Lupus erythematosus. - Condition is Stable. - Discharge Instructions: Systemic Lupus Erythematosus, Adult. - Prescriptions for hydroxychloroquine 200 mg Oral tablet - take 1 tablet by ORAL route once daily; 20 tablet. Ibuprofen 600 mg Oral Tablet - take 1 tablet by ORAL route every 6 hours As needed take with food; 30 tablet. Methylprednisolone 4 mg Oral Tablet - take 1 tablet by ORAL route every 24 hours for 30 days with food; 30 tablet. Tylenol- Codeine #3 300-30 mg Oral Tablet - take 1 tablet by ORAL route every 6 hours As needed; 12 tablet. - Medication Reconciliation Form, Thank You Letter, Antibiotic Education, Prescription Opioid Use form. - Follow up: Private Physician; When: 2 - 3 days; Reason: If symptoms return, Further diagnostic work-up, Recheck today's complaints, Continuance of care, Re-evaluation by your physician. - Problem is an acute exacerbation. - Symptoms have improved. Signatures: Dispatcher [employer] Cinthya Hudson RN RN Terrance Moe MD MD [facility] Breonna Juarez RN RN ss Corrections: (The following items were deleted from the chart) 10:15 10:01 Dexamethasone 10 mg IM once ordered. kdr sv 10:15 10:15 Dexamethasone 10 mg IM once ordered. sv sv 11:56 11:36 03/20/2019 11:36 Discharged to Home. Impression: Lupus erythematosus. Condition sv is Stable. Forms are Medication Reconciliation Form, Thank You Letter, Antibiotic Education, Prescription Opioid Use. Follow up: Private Physician; When: 2 - 3 days; Reason: If symptoms return, Further diagnostic work-up, Recheck today's complaints, Continuance of care, Re-evaluation by your physician. Problem is an acute exacerbation. Symptoms have improved. kdr
--- NOTE | 2019-03-20 11:37 | ER ---
Nurse's Notes [facility] Name: Carmen Macias Age: 43 yrs Sex: Female : 1975 Arrival Date: 03/20/2019 Time: 09:01 Bed 8 Private MD: Diagnosis: Lupus erythematosus Presentation: 03/20 09:26 Presenting complaint: Patient states: "I'm having a lupus flare up. My kidneys hurt, my ss whole body hurts." Patient reports that symptoms began 9 years ago and that she ran out of medication 2 days ago and now the pain is back. Transition of care: patient was not received from another setting of care. Onset of symptoms was 2009. Risk Assessment: Do you want to hurt yourself or someone else? Patient reports no desire to harm self or others. Initial Sepsis Screen: Does the patient meet any 2 criteria? No. Patient's initial sepsis screen is negative. Does the patient have a suspected source of infection? No. Patient's initial sepsis screen is negative. Care prior to arrival: None. 09:26 Method Of Arrival: Wheelchair ss 09:26 Acuity: SUSANNA 3 ss Historical: - Allergies: 09:29 No Known Allergies; ss - Home Meds: 09:29 unknown bipolar medication [Active]; ss - PMHx: 09:29 Bipolar disorder; Lupus; ss - PSHx: 09:29 ; ss - Immunization history:: Adult Immunizations up to date. - Social history:: Smoking status: Patient uses tobacco products, 2 cigarettes/ day. - Ebola Screening: : Patient denies exposure to infectious person Patient denies travel to an Ebola-affected area in the 21 days before illness onset. Screenin:47 Abuse screen: Denies threats or abuse. Denies injuries from another. Nutritional sv screening: No deficits noted. Tuberculosis screening: No symptoms or risk factors identified. Fall Risk None identified. Assessment: 09:57 General: Appears in no apparent distress. uncomfortable, obese, well developed, sv Behavior is cooperative, appropriate for age, anxious, fussy. Pain: Complains of pain in "all over" Pain currently is 8 out of 10 on a pain scale. Pain: Pain began a week ago after running out of her meds because she cannot afford them Is continuous. Neuro: Level of Consciousness is awake, alert, obeys commands, Oriented to person, place, time, situation, Moves all extremities. Respiratory: Respiratory effort is even, unlabored, Respiratory pattern is regular, agonal. Derm: Skin is pink, warm \\T\\ dry. 10:15 Reassessment: Patient appears in no apparent distress at this time. No changes from sv previously documented assessment. Patient and/or family updated on plan of care and expected duration. Pain level reassessed. Patient is alert, oriented x 3, equal unlabored respirations, skin warm/dry/pink. 11:55 Reassessment: Patient appears in no apparent distress at this time. Patient and/or sv family updated on plan of care and expected duration. Pain level reassessed. Patient is alert, oriented x 3, equal unlabored respirations, skin warm/dry/pink. Patient states feeling better. Patient states symptoms have improved. Vital Signs: 09:29 BP 142 / 109 LA Sitting; Pulse 81; Resp 18; Temp 99.0(TE); Pulse Ox 100% on R/A; Weight ss 81.65 kg; Height 5 ft. 0 in. (152.40 cm); Pain 8/10; 09:29 BP 162 / 111 RA Sitting; ss 10:15 BP 159 / 93; Pulse 62; Resp 22; Pulse Ox 100% ; sv 11:12 BP 163 / 96; Pulse 66; Resp 20; Pulse Ox 98% ; sv 11:56 BP 143 / 93; Pulse 70; Resp 18; Pulse Ox 100% ; sv 09:29 Body Mass Index 35.15 (81.65 kg, 152.40 cm) ED Course: 09:01 Patient arrived in ED. mr 09:06 Terrance Moe MD is Attending Physician. kdr 09:28 Triage completed. ss 09:29 Arm band placed on right wrist. ss 09:46 Cinthya Lott, [place] is Primary Nurse. sv 09:47 Patient has correct armband on for positive identification. Bed in low position. Call sv light in reach. Adult w/ patient. Door closed. Head of bed elevated. 09:58 Urine collected: clean catch specimen, clear, antony colored. jb1 10:03 Urine --Ancillary (enter results) Sent. sv 10:03 Urine Dipstick--Ancillary (enter results) Sent. sv 11:00 Chem 7 Sent. sv 11:00 CBC with Diff Sent. sv Administered Medications: 10:10 Drug: NS 0.9% 500 ml Route: IV; Rate: bolus; Site: right wrist; sv 10:40 Follow up: Response: No adverse reaction; IV Status: Completed infusion; IV Intake: sv 500ml 10:10 Drug: Zofran 4 mg Route: IVP; Site: right wrist; sv 10:40 Follow up: Response: No adverse reaction sv 10:12 Drug: TORadol - Ketorolac 15 mg Route: IVP; Site: right wrist; sv 10:40 Follow up: Response: No adverse reaction; Marked relief of symptoms sv 10:14 Drug: Decadron - Dexamethasone 10 mg Route: IVP; Site: right wrist; sv 10:40 Follow up: Response: No adverse reaction sv 10:15 CANCELLED (Physician Discretion): Dexamethasone 10 mg IM once sv Intake: 10:40 IV: 500ml; Total: 500ml. sv Outcome: 11:36 Discharge ordered by . kdr 11:56 Discharged to home via wheelchair, with family. sv 11:56 Condition: stable 11:56 Discharge instructions given to patient, Instructed on discharge instructions, follow up and referral plans. medication usage, Demonstrated understanding of instructions, follow-up care, medications, Prescriptions given X 4. 11:56 Patient left the ED. sv Signatures: Misha Tesfaye jbCinthya Kessler, [place] RN Terrance Moe MD MD kdr Rivera, Mary mr Breonna Juarez RN RN ss Corrections: (The following items were deleted from the chart) 09:33 09:29 BP 142 / 109; Pulse 81bpm; Resp 18bpm; Pulse Ox 100% RA; Temp 99.0F Temporal; ss 81.65 kg; Height 5 ft. 0 in.; BMI: 35.1; Pain 8/10; ss
[2019-03-20 12:07] LABS: Urine Blood TRACE (NEG); Urine Glucose NEGATIVE (NEG); Urine Protein NEGATIVE (NEG); Urine Specific Gravity 1.015 (1.005-1.030); Urine pH 6.5 (5.0-7.0)
== END 2019-03-20 11:56 | disposition home or self-care (01) ==
LOC: ER 08:58
DX: L93.0 Discoid lupus erythematosus (principal); F31.9 Bipolar disorder, unspecified; F17.210 Nicotine dependence, cigarettes, uncomplicated
CPT/HCPCS: 36415; 80048; 81003; 81025; 85025; 96374; 96375; 99283; J1100; J2405

== ENCOUNTER 2019-04-23 07:04 | Emergency (ER) | payer SELFPAY ==
[2019-04-23] MEDS ORDERED: METHYLPREDNISOLONE 125 MG INJ ONE (07:44)
[2019-04-23] MEDS ORDERED: KETOROLAC 30 MG/ML INJ ONE (07:44)
[2019-04-23 08:08] LABS: Hematocrit 30.7 % (36.0-45.0); MPV 7.2 fL (7.6-11.3); RBC Red Blood Cell Count 3.68 M/uL (3.86-4.86)
[2019-04-23 08:27] LABS: BUN Blood Urea Nitrogen 14 mg/dL (7-18); Bicarbonate 27 mmol/L (21-32); Glucose Level 93 mg/dL (74-106); Potassium 3.6 mmol/L (3.5-5.1); Sodium Level 139 mmol/L (136-145)
--- NOTE | 2019-04-23 08:34 | EDPHYS ---
Physician Documentation [facility] Name: Carmen Macias Age: 43 yrs Sex: Female : 1975 Arrival Date: 04/23/2019 Time: 07:06 Bed 5 Private MD: EDE Physician Singh Ragsdale HPI: 04/23 07:57 This 43 yrs old Female presents to ER via Wheelchair with complaints of Pain jr8 All Over. 07:57 Onset: The symptoms/episode began/occurred yesterday. Associated signs and symptoms: jr8 Pertinent positives: joint pain, Pertinent negatives: chest pain, cough, headache, shortness of breath, sore throat, vomiting, wheezing. Pt reports history of Lupus presents with C/O pain in knees, ankles, and wrists as well as subjective fever at home last night. Took tylenol at home last night. . 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 - Social history:: Smoking status: Patient uses tobacco products, smokes one pack cigarettes per day. - Ebola Screening: : Patient negative for fever greater than or equal to 101.5 degrees Fahrenheit, and additional compatible Ebola Virus Disease symptoms Patient denies exposure to infectious person Patient denies travel to an Ebola-affected area in the 21 days before illness onset No symptoms or risks identified at this time. ROS: 07:58 Constitutional: Negative for fever, chills, and weight loss, Eyes: Negative for injury, jr8 pain, redness, and discharge, ENT: Negative for injury, pain, and discharge, Neck: Negative for injury, pain, and swelling, Cardiovascular: Negative for chest pain, palpitations, and edema, Respiratory: Negative for shortness of breath, cough, wheezing, and pleuritic chest pain, Abdomen/GI: Negative for abdominal pain, nausea, vomiting, diarrhea, and constipation, Back: Negative for injury and pain, MS/Extremity: Negative for injury and deformity, Skin: Negative for injury, rash, and discoloration, Neuro: Negative for headache, weakness, numbness, tingling, and seizure. Exam: 07:58 Constitutional: This is a well developed, well nourished patient who is awake, alert, jr8 and in no acute distress. Head/Face: Normocephalic, atraumatic. Eyes: Pupils equal round and reactive to light, extra-ocular motions intact. Lids and lashes normal. Conjunctiva and sclera are non-icteric and not injected. Cornea within normal limits. Periorbital areas with no swelling, redness, or edema. ENT: Nares patent. No nasal discharge, no septal abnormalities noted. Tympanic membranes are normal and external auditory canals are clear. Oropharynx with no redness, swelling, or masses, exudates, or evidence of obstruction, uvula midline. Mucous membranes moist. Neck: Trachea midline, no thyromegaly or masses palpated, and no cervical lymphadenopathy. Supple, full range of motion without nuchal rigidity, or vertebral point tenderness. No Meningismus. Chest/axilla: Normal chest wall appearance and motion. Nontender with no deformity. No lesions are appreciated. Cardiovascular: Regular rate and rhythm with a normal S1 and S2. No gallops, murmurs, or rubs. Normal PMI, no JVD. No pulse deficits. Respiratory: Lungs have equal breath sounds bilaterally, clear to auscultation and percussion. No rales, rhonchi or wheezes noted. No increased work of breathing, no retractions or nasal flaring. Abdomen/GI: Soft, non-tender, with normal bowel sounds. No distension or tympany. No guarding or rebound. No evidence of tenderness throughout. Back: No spinal tenderness. No costovertebral tenderness. Full range of motion. Female : Normal external genitalia. Skin: Warm, dry with normal turgor. Normal color with no rashes, no lesions, and no evidence of cellulitis. Neuro: Awake and alert, GCS 15, oriented to person, place, time, and situation. Cranial nerves II-XII grossly intact. Motor strength 5/5 in all extremities. Sensory grossly intact. Cerebellar exam normal. Normal gait. 07:58 Musculoskeletal/extremity: Joints: Mild effusion to PARVIZ knees without overlying cellulitis. . Vital Signs: 07:26 BP 156 / 94; Pulse 75; Resp 16 S; Temp 98.6(TE); Pulse Ox 99% on R/A; Weight 81.65 kg; iw Height 5 ft. (152.40 cm); Pain 8/10; 08:21 Pulse 68; Pulse Ox 97% on R/A; ss 07:26 Body Mass Index 35.15 (81.65 kg, 152.40 cm) iw MDM: 07:07 Patient medically screened. jr8 08:31 Data reviewed: vital signs, nurses notes, lab test result(s), and as a result, I will jr8 discharge patient. Data interpreted: Pulse oximetry: on room air is 97 %. Interpretation: normal. Counseling: I had a detailed discussion with the patient and/or guardian regarding: the historical points, exam findings, and any diagnostic results supporting the discharge/admit diagnosis, the presence of at least one elevated blood pressure reading (>120/80) during this emergency department visit, lab results, the need for outpatient follow up, a family practitioner. ED course: Pt pain significantly decreased with toradol and solu-medrol, no elevation in WBC, pt states she is feeling much better, will put on course of oral steroids and have her follow up with PCP. Strict return precautions given .. 04/23 07:27 Order name: CBC w/o diff; Complete Time: 08:16 jr8 04/23 07:27 Order name: BMP; Complete Time: 08:29 jr8 Administered Medications: 07:55 Drug: TORadol - Ketorolac 15 mg Route: IVP; Site: right hand; sg 07:55 Drug: SOLU-Medrol 125 mg Route: IVP; Site: right hand; Disposition: 04/24 07:38 Co-signature as Attending Physician, Singh Ragsdale MD I agree with the assessment and tyson plan of care. Disposition: 04/23/19 08:33 Discharged to Home. Impression: Lupus erythematosus, Pain in unspecified joint. - Condition is Stable. - Discharge Instructions: Joint Pain, Arthritis, Systemic Lupus Erythematosus, Adult. - Prescriptions for Prednisone 20 mg Oral Tablet - take 3 tablet by ORAL route once daily for 5 days; 15 tablet. - Work release form, Medication Reconciliation Form, Thank You Letter form. - Follow up: Private Physician; When: As needed; Reason: Recheck today's complaints, Re-evaluation by your physician. - Problem is chronic. - Symptoms have improved. Signatures: Dispatcher [employer] EDMS Antoni Membreno, RN RN Singh Molina MD MD cha Williams, Irene, RN RN Christiano Good PA PA jr8 Corrections: (The following items were deleted from the chart) 04/23 09:23 08:33 04/23/2019 08:33 Discharged to Home. Impression: Lupus erythematosus; Pain in iw unspecified joint. Condition is Stable. Discharge Instructions: Joint Pain, Arthritis, Systemic Lupus Erythematosus, Adult. Prescriptions for Prednisone 20 mg Oral Tablet - take 3 tablet by ORAL route once daily for 5 days; 15 tablet. and Forms are Work release form, Medication Reconciliation Form, Thank You Letter, Antibiotic Education, Prescription Opioid Use. Follow up: Private Physician; When: As needed; Reason: Recheck today's complaints, Re-evaluation by your physician. Problem is chronic. Symptoms have improved. jr8
--- NOTE | 2019-04-23 08:34 | ER ---
Nurse's Notes [facility] Name: Carmen Macias Age: 43 yrs Sex: Female : 1975 Arrival Date: 04/23/2019 Time: 07:06 Bed 5 Private MD: Diagnosis: Lupus erythematosus;Pain in unspecified joint Presentation: 04/23 07:24 Presenting complaint: Patient states: lupus flare up X 3 days, c/o pian in joints, iw headache, fever last night, out of meds for a week, has been "away from home for four months" has been coming to ER to refill meds (prednisone). Transition of care: patient was not received from another setting of care. Onset of symptoms was April 20, 2019. Risk Assessment: Do you want to hurt yourself or someone else? Patient reports no desire to harm self or others. Initial Sepsis Screen: Does the patient meet any 2 criteria? No. Patient's initial sepsis screen is negative. Does the patient have a suspected source of infection? No. Patient's initial sepsis screen is negative. Care prior to arrival: None. 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 - Social history:: Smoking status: Patient uses tobacco products, smokes one pack cigarettes per day. - Ebola Screening: : Patient negative for fever greater than or equal to 101.5 degrees Fahrenheit, and additional compatible Ebola Virus Disease symptoms Patient denies exposure to infectious person Patient denies travel to an Ebola-affected area in the 21 days before illness onset No symptoms or risks identified at this time. Screenin:57 Abuse screen: Denies threats or abuse. Denies injuries from another. Nutritional sg screening: No deficits noted. Tuberculosis screening: No symptoms or risk factors identified. Never had TB. Fall Risk None identified. Assessment: 07:57 General: Appears in no apparent distress. well groomed, well developed, well nourished, sg Behavior is calm, cooperative, appropriate for age. Pain: Complains of pain in all over Quality of pain is described as aching, "sore". Neuro: Level of Consciousness is awake, alert, obeys commands, Oriented to person, place, time, Crayon Grader are equal bilaterally Moves all extremities. Full function Gait is steady, Speech is normal, Facial symmetry appears normal, Pupils are PERRLA. Cardiovascular: Heart tones S1 S2 present Patient's skin is warm and dry. Chest pain is denied. Respiratory: Airway is patent Respiratory effort is even, unlabored, Respiratory pattern is regular, symmetrical. GI: Abdomen is round non-distended. : No signs and/or symptoms were reported regarding the genitourinary system. EENT: No signs and/or symptoms were reported regarding the EENT system. Derm: Skin is pink, warm \\T\\ dry. old abrasion noted to right forearm. Musculoskeletal: Circulation, motion, and sensation intact. Range of motion: intact in all extremities, Swelling absent. 08:30 Reassessment: Patient appears in no apparent distress at this time. Patient and/or sg family updated on plan of care and expected duration. Pain level reassessed. Patient is alert, oriented x 3, equal unlabored respirations, skin warm/dry/pink. 09:01 Reassessment: Patient appears in no apparent distress at this time. pt requesting a sg minute to get up and around prior to leaving to home with her family. Vital Signs: 07:26 BP 156 / 94; Pulse 75; Resp 16 S; Temp 98.6(TE); Pulse Ox 99% on R/A; Weight 81.65 kg; iw Height 5 ft. (152.40 cm); Pain 8/10; 08:21 Pulse 68; Pulse Ox 97% on R/A; ss 07:26 Body Mass Index 35.15 (81.65 kg, 152.40 cm) iw ED Course: 07:06 Patient arrived in ED. ds1 07:07 Christiano Vasquez PA is PHCP. jr8 07:07 Singh Ragsdale MD is Attending Physician. jr8 07:25 Triage completed. iw 07:26 Arm band placed on. iw 07:52 Missed attempt(s): 22 gauge in right antecubital area. Bleeding controlled, band aid sg applied, catheter tip intact. 07:57 Antoni Membreno, RN is Primary Nurse. sg 07:57 Patient has correct armband on for positive identification. Bed in low position. Call sg light in reach. Side rails up X2. 07:57 Initial lab(s) drawn, by me, sent to lab. Inserted saline lock: 22 gauge in right hand, sg using aseptic technique. Blood collected. 08:45 No provider procedures requiring assistance completed. IV discontinued, intact, sg bleeding controlled, No redness/swelling at site. Pressure dressing applied. Administered Medications: 07:55 Drug: TORadol - Ketorolac 15 mg Route: IVP; Site: right hand; sg 07:55 Drug: SOLU-Medrol 125 mg Route: IVP; Site: right hand; sg Outcome: 08:33 Discharge ordered by . marah 08:45 Discharged to home ambulatory, with family. sg 08:45 Condition: good 08:45 Discharge instructions given to patient, Instructed on discharge instructions, follow up and referral plans. medication usage, safety practices, Demonstrated understanding of instructions, follow-up care, medications, Prescriptions given X 1. 09:20 Discharged to pt reports she is now ready to stand, pt assisted out of bad and with sg putting pants back on, is ambulatory to ER wheelchair with stand by assist, assisted to car with family, pt to go home 09:23 Patient left the ED. iw Signatures: Antoni Membreno, Velia Kaba RN ds1 Chaya Fontanez RN RN Breonna Juarez RN RN ss Roszak, Josh, PA PA jr8
[2019-04-23 09:30] VITALS: BP 156/94; TEMP 98.6
[2019-04-23 09:37] VITALS: O2SAT 97
== END 2019-04-23 09:23 | disposition home or self-care (01) ==
LOC: ER 07:04
DX: L93.0 Discoid lupus erythematosus (principal); F17.210 Nicotine dependence, cigarettes, uncomplicated
CPT/HCPCS: 36415; 80048; 85027; 96374; 96375; 99284; J2930

== ENCOUNTER 2019-05-10 16:21 | Emergency (ER) | payer SELFPAY ==
[2019-05-10] MEDS ORDERED: FENTANYL CITR 100 MCG/2 ML ONE (16:46)
[2019-05-10] MEDS ORDERED: ONDANSETRON 4 MG/2 ML VIAL ONE (16:46)
[2019-05-10 17:04] LABS: Absolute Lymphocytes (CBC) 1.4 K/uL (0.7-4.9); Basophils % 1.1 % (0-1.3); Hematocrit 32.6 % (36.0-45.0); Lymphocytes % 20.2 % (15.3-44.8); MPV 7.2 fL (7.6-11.3); RBC Red Blood Cell Count 3.91 M/uL (3.86-4.86)
[2019-05-10 17:17] LABS: BUN Blood Urea Nitrogen 11 mg/dL (7-18); Bicarbonate 27 mmol/L (21-32); Glucose Level 130 mg/dL (74-106); Potassium 3.1 mmol/L (3.5-5.1); Sodium Level 137 mmol/L (136-145)
[2019-05-10] MEDS ORDERED: POTASSIUM CL SA 10 MEQ TAB PO ONE (17:24)
--- NOTE | 2019-05-10 17:26 | ER ---
Nurse's Notes [facility] Name: Carmen Macias Age: 43 yrs Sex: Female : 1975 Arrival Date: 05/10/2019 Time: 16:23 Bed 23 [facility] MD: Diagnosis: Lupus erythematosus Presentation: 05/10 16:30 Presenting complaint: Patient states: "lupus flare up" x 3 days. Pt c/o pain all over, ss is out of prednisone which usually helps. Transition of care: patient was not received from another setting of care. Onset of symptoms was May 07, 2019. Risk Assessment: Do you want to hurt yourself or someone else? Patient reports no desire to harm self or others. Initial Sepsis Screen: Does the patient meet any 2 criteria? No. Patient's initial sepsis screen is negative. Does the patient have a suspected source of infection? No. Patient's initial sepsis screen is negative. Care prior to arrival: None. 16:30 Method Of Arrival: Wheelchair ss 16:30 Acuity: SUSANNA 3 ss Historical: - Allergies: 17:08 No Known Allergies; em - PMHx: 16:31 Bipolar disorder; Lupus; ss - PSHx: 16:31 None; ss - Immunization history:: Adult Immunizations up to date. - Social history:: Smoking status: Patient uses tobacco products, smokes one pack cigarettes per day. - Ebola Screening: : Patient denies exposure to infectious person Patient denies travel to an Ebola-affected area in the 21 days before illness onset. Screenin:45 Abuse screen: Denies threats or abuse. Nutritional screening: No deficits noted. em Tuberculosis screening: No symptoms or risk factors identified. Fall Risk None identified. Assessment: 16:45 General: Appears in no apparent distress. uncomfortable, Behavior is calm, cooperative, em Denies fever. Pain: Complains of pain in "everywhere" Pain currently is 10 out of 10 on a pain scale. Neuro: Level of Consciousness is awake, alert, obeys commands, Oriented to person, place, time, situation, Appropriate for age. Cardiovascular: Capillary refill < 3 seconds Patient's skin is warm and dry. Respiratory: Airway is patent Respiratory effort is even, unlabored, Respiratory pattern is regular, symmetrical. GI: Abdomen is flat, Patient currently denies nausea, vomiting. Derm: Skin is intact, is healthy with good turgor, Skin is pink, warm \\T\\ dry. Musculoskeletal: Capillary refill < 3 seconds, Range of motion: intact in all extremities. 17:44 Reassessment: Patient appears in no apparent distress at this time. Patient and/or em family updated on plan of care and expected duration. Pain level reassessed. Patient is alert, oriented x 3, equal unlabored respirations, skin warm/dry/pink. rates pain 5/10. Vital Signs: 16:31 BP 143 / 103; Pulse 68; Resp 18; Temp 97.6(TE); Pulse Ox 100% on R/A; Weight 83.91 kg; ss Height 5 ft. 5 in. (165.10 cm); Pain 10/10; 16:45 BP 137 / 81; Pulse 70; Resp 16; Pulse Ox 96% on R/A; em 16:31 Body Mass Index 30.79 (83.91 kg, 165.10 cm) ED Course: 16:23 Patient arrived in ED. as 16:25 Christiano Vasquez PA is PHCP. jr8 16:25 Hai Larose MD is Attending Physician. jr8 16:31 Triage completed. ss 16:31 Arm band placed on left wrist. ss 16:36 Patient maintains SpO2 saturation greater than 95% on room air. jp3 16:37 Bed in low position. Call light in reach. Side rails up X 1. Side rails up X2. Warm jp3 blanket given. Pillow given. Verbal reassurance given. Pulse ox on. NIBP on. 16:45 Clint Morris LVN is Primary Nurse. em 16:45 Initial lab(s) drawn, by me, sent to lab. Inserted saline lock: 22 gauge in right em forearm, using aseptic technique. Blood collected. 17:44 No provider procedures requiring assistance completed. IV discontinued, intact, em bleeding controlled, No redness/swelling at site. Pressure dressing applied. Administered Medications: 16:52 Drug: Zofran 4 mg Route: IVP; Site: right forearm; ss 17:28 Follow up: Response: No adverse reaction em 16:55 Drug: fentaNYL (PF) 50 mcg Route: IVP; Site: right forearm; ss 17:28 Follow up: Response: No adverse reaction; Pain is decreased em 17:28 Drug: Potassium Chloride 40 mEq Route: PO; em 17:45 Follow up: Response: No adverse reaction em Outcome: 17:26 Discharge ordered by MD. crystal 17:44 Discharged to home via wheelchair, with family. em 17:44 Condition: good 17:44 Discharge instructions given to patient, Instructed on discharge instructions, follow up and referral plans. medication usage, Demonstrated understanding of instructions, follow-up care, medications, Prescriptions given X 1. 17:46 Patient left the ED. em Signatures: Clint Morris, ANTHONY [employer]UT[employer] SPECIALIST Rachel Parikh Shelby, [place] RN ss Christiano Vasquez PA PA jr8 Ethan Mccarthy jp3
--- NOTE | 2019-05-10 17:27 | EDPHYS ---
Physician Documentation [facility] Name: Carmen Macias Age: 43 yrs Sex: Female : 1975 Arrival Date: 05/10/2019 Time: 16:23 Bed 23 Private MD: ED Physician Hai Larose HPI: 05/10 16:53 This 43 yrs old Female presents to ER via Wheelchair with complaints of Lupus jr8 Flare. 16:53 Onset: The symptoms/episode began/occurred today. Associated signs and symptoms: jr8 Pertinent negatives: chest pain, dysuria, fever, sore throat, vomiting, wheezing. Modifying factors: The patient symptoms are alleviated by nothing, the patient symptoms are aggravated by movement. The patient has experienced similar episodes in the past, chronically. Pt reports that her lupus is flaring and she has PARVIZ ankle pain and swelling. Historical: - Allergies: 17:08 No Known Allergies; em - PMHx: 16:31 Bipolar disorder; Lupus; ss - PSHx: 16:31 None; ss - Immunization history:: Adult Immunizations up to date. - Social history:: Smoking status: Patient uses tobacco products, smokes one pack cigarettes per day. - Ebola Screening: : Patient denies exposure to infectious person Patient denies travel to an Ebola-affected area in the 21 days before illness onset. ROS: 16:53 Constitutional: Negative for fever, chills, and weight loss, Eyes: Negative for injury, jr8 pain, redness, and discharge, ENT: Negative for injury, pain, and discharge, Neck: Negative for injury, pain, and swelling, Cardiovascular: Negative for chest pain, palpitations, and edema, Respiratory: Negative for shortness of breath, cough, wheezing, and pleuritic chest pain, Abdomen/GI: Negative for abdominal pain, nausea, vomiting, diarrhea, and constipation, Back: Negative for injury and pain, : Negative for injury, bleeding, discharge, and swelling, Neuro: Negative for headache, weakness, numbness, tingling, and seizure, Psych: Negative for depression, anxiety, suicide ideation, homicidal ideation, and hallucinations. 16:53 MS/extremity: Positive for pain, swelling, of the PARVIZ ANKLES. Exam: 16:55 Constitutional: This is a well developed, well nourished patient who is awake, alert, jr8 and in no acute distress. Head/Face: Normocephalic, atraumatic. Eyes: Pupils equal round and reactive to light, extra-ocular motions intact. Lids and lashes normal. Conjunctiva and sclera are non-icteric and not injected. Cornea within normal limits. Periorbital areas with no swelling, redness, or edema. ENT: Nares patent. No nasal discharge, no septal abnormalities noted. Tympanic membranes are normal and external auditory canals are clear. Oropharynx with no redness, swelling, or masses, exudates, or evidence of obstruction, uvula midline. Mucous membranes moist. Neck: Trachea midline, no thyromegaly or masses palpated, and no cervical lymphadenopathy. Supple, full range of motion without nuchal rigidity, or vertebral point tenderness. No Meningismus. Chest/axilla: Normal chest wall appearance and motion. Nontender with no deformity. No lesions are appreciated. Cardiovascular: Regular rate and rhythm with a normal S1 and S2. No gallops, murmurs, or rubs. Normal PMI, no JVD. No pulse deficits. Respiratory: Lungs have equal breath sounds bilaterally, clear to auscultation and percussion. No rales, rhonchi or wheezes noted. No increased work of breathing, no retractions or nasal flaring. Back: No spinal tenderness. No costovertebral tenderness. Full range of motion. Skin: Warm, dry with normal turgor. Normal color with no rashes, no lesions, and no evidence of cellulitis. Neuro: Awake and alert, GCS 15, oriented to person, place, time, and situation. Cranial nerves II-XII grossly intact. Motor strength 5/5 in all extremities. Sensory grossly intact. Cerebellar exam normal. Normal gait. 16:55 Musculoskeletal/extremity: Swelling in PARVIZ lateral aspects of ankles. Vital Signs: 16:31 BP 143 / 103; Pulse 68; Resp 18; Temp 97.6(TE); Pulse Ox 100% on R/A; Weight 83.91 kg; ss Height 5 ft. 5 in. (165.10 cm); Pain 10/10; 16:45 BP 137 / 81; Pulse 70; Resp 16; Pulse Ox 96% on R/A; em 16:31 Body Mass Index 30.79 (83.91 kg, 165.10 cm) MDM: 16:25 Patient medically screened. jr8 17:24 Data reviewed: vital signs, nurses notes, lab test result(s), and as a result, I will jr8 discharge patient. Data interpreted: Pulse oximetry: on room air is 96 %. Interpretation: normal. 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 Response to treatment: the patient's symptoms have markedly improved after treatment. ED course: Discussed need to FU with rheumatology and not to the need to not use extensive exogenous steroids. Pt states she will FU with PCP and rheum. 05/10 16:41 Order name: CBC with Diff; Complete Time: 17:08 8 05/10 16:41 Order name: BMP; Complete Time: 17:19 8 05/10 16:41 Order name: SL; Complete Time: 17:00 8 Administered Medications: 16:52 Drug: Zofran 4 mg Route: IVP; Site: right forearm; ss 17:28 Follow up: Response: No adverse reaction em 16:55 Drug: fentaNYL (PF) 50 mcg Route: IVP; Site: right forearm; ss 17:28 Follow up: Response: No adverse reaction; Pain is decreased em 17:28 Drug: Potassium Chloride 40 mEq Route: PO; em 17:45 Follow up: Response: No adverse reaction em Disposition: 05/10/19 17:26 Discharged to Home. Impression: Lupus erythematosus. - Condition is Stable. - Discharge Instructions: Systemic Lupus Erythematosus, Adult. - Prescriptions for prednisone 10 mg Oral tablet - take 2 tablet by ORAL route once daily for 5 days then 1 tablet once daily for 5 days, then half a tab once daily for 5 days; 18 tablet. - Medication Reconciliation Form, Thank You Letter form. - Follow up: Private Physician; When: 2 - 3 days; Reason: Recheck today's complaints, Re-evaluation by your physician. - Problem is chronic. - Symptoms have improved. Signatures: Dispatcher [employer] EDClint Mcdaniels, ELECTRONIC HEALTH RECORDS SPECIALIST ELECTRONIC HEALTH RECORDS SPECIALIST em Breonna Juarez RN RN ss Roszak, Josh, PA PA jr8 Corrections: (The following items were deleted from the chart) 17:46 17:26 05/10/2019 17:26 Discharged to Home. Impression: Lupus erythematosus. Condition em is Stable. Prescriptions for prednisone 10 mg Oral tablet - take 2 tablet by ORAL route once daily for 5 days then 1 tablet once daily for 5 days, then half a tab once daily for 5 days; 18 tablet. and Forms are Medication Reconciliation Form, Thank You Letter, Antibiotic Education, Prescription Opioid Use. Follow up: Private Physician; When: 2 - 3 days; Reason: Recheck today's complaints, Re-evaluation by your physician. Problem is chronic. Symptoms have improved. jr8
[2019-05-10] MEDS ORDERED: NA CHLORIDE 0.9% 250 ML ONE (17:52)
[2019-05-10] MEDS ORDERED: IBUPROFEN 100 MG/5 ML UCUP ONE (17:52)
[2019-05-10 19:39] VITALS: TEMP 97.6
[2019-05-10 19:41] VITALS: BP 137/81; O2SAT 96
== END 2019-05-10 17:46 | disposition home or self-care (01) ==
LOC: ER 16:21
DX: L93.0 Discoid lupus erythematosus (principal); F17.210 Nicotine dependence, cigarettes, uncomplicated
CPT/HCPCS: 36415; 80048; 85025; 96374; 96375; 99284; J2405; J3010; J7030

== ENCOUNTER 2019-05-27 12:10 | Emergency (ER) | payer SELFPAY ==
[2019-05-27] MEDS ORDERED: KETOROLAC 30 MG/ML INJ ONE (13:46)
[2019-05-27] MEDS ORDERED: NA CHLORIDE 0.9% 1,000 ML ONE (13:46)
[2019-05-27 13:57] LABS: Protime INR 1.11
[2019-05-27 14:05] LABS: Absolute Lymphocytes (CBC) 1.9 K/uL (0.7-4.9); Basophils % 1.2 % (0-1.3); Hematocrit 32.9 % (36.0-45.0); Lymphocytes % 16.6 % (15.3-44.8); RBC Red Blood Cell Count 4.08 M/uL (3.86-4.86)
[2019-05-27 14:14] LABS: ALT/SGPT 23 U/L (12-78); AST/SGOT 17 U/L (15-37); Albumin 2.7 g/dL (3.4-5.0); Alkaline Phosphatase 99 U/L (45-117); BUN Blood Urea Nitrogen 10 mg/dL (7-18); Bicarbonate 29 mmol/L (21-32); Bilirubin Direct 0.1 mg/dL (0-0.2); Bilirubin Total 0.4 mg/dL (0.2-1.0); Glucose Level 92 mg/dL (74-106); Potassium 3.6 mmol/L (3.5-5.1); Protein, Total 7.5 g/dL (6.4-8.2); Sodium Level 136 mmol/L (136-145)
[2019-05-27] MEDS ORDERED: dexAMETHasone 10 MG/ML VIAL ONE (14:52)
[2019-05-27 15:01] LABS: Barbiturates NEGATIVE (NEGATIVE); Benzodiazepines NEGATIVE (NEGATIVE); Cocaine NEGATIVE (NEGATIVE); METHAMPHETAM POSITIVE (NEGATIVE); Methadone NEGATIVE (NEGATIVE); Opiates NEGATIVE (NEGATIVE); Phencyclidine NEGATIVE (NEGATIVE); THC Cannibis POSITIVE (NEGATIVE)
[2019-05-27 15:05] LABS: Urine Blood TRACE (NEG); Urine Glucose NEGATIVE (NEG); Urine Protein NEGATIVE (NEG)
[2019-05-27] MEDS ORDERED: ACETAMINOPHEN 500 MG TAB ONE (15:17)
--- NOTE | 2019-05-27 17:34 | ER ---
Nurse's Notes [facility] Name: Carmen Macias Age: 43 yrs Sex: Female : 1975 Arrival Date: 05/27/2019 Time: 12:13 Bed 26 Private MD: Diagnosis: acute generalized pain;recreational drug uabuse Presentation: 05/27 12:19 Presenting complaint: Patient states: "I am having a lupus flare, I am hurting all over hb really bad for more than 2 weeks.". Transition of care: patient was not received from another setting of care. Onset of symptoms was May 27, 2019. Onset of symptoms was May 27, 2019. Risk Assessment: Do you want to hurt yourself or someone else? Patient reports no desire to harm self or others. Care prior to arrival: None. 12:19 Method Of Arrival: Wheelchair hb 12:19 Acuity: SUSANNA 3 hb 12:47 Initial Sepsis Screen: Does the patient meet any 2 criteria? No. Patient's initial mg2 sepsis screen is negative. Does the patient have a suspected source of infection? No. Patient's initial sepsis screen is negative. 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 - Social history:: Smoking status: Patient uses tobacco products, smokes one pack cigarettes per day. - Ebola Screening: : No symptoms or risks identified at this time. - Family history:: not pertinent. - Hospitalizations: : No recent hospitalization is reported. Screenin:46 Abuse screen: Denies threats or abuse. Denies injuries from another. Nutritional mg2 screening: No deficits noted. Tuberculosis screening: No symptoms or risk factors identified. Fall Risk None identified. Assessment: 12:44 General: Appears in no apparent distress. comfortable, Behavior is calm, cooperative. mg2 Pain: Complains of pain in whole body Pain does not radiate. Pain currently is 6 out of 10 on a pain scale. Quality of pain is described as aching, Pain began gradually, Is intermittent. Neuro: Level of Consciousness is awake, alert, obeys commands, Oriented to person, place, time, situation. Cardiovascular: Capillary refill < 3 seconds Patient's skin is warm and dry. Respiratory: Airway is patent Respiratory effort is even, unlabored, Respiratory pattern is regular, symmetrical. GI: No signs and/or symptoms were reported involving the gastrointestinal system. : No signs and/or symptoms were reported regarding the genitourinary system. EENT: No signs and/or symptoms were reported regarding the EENT system. Derm: Skin is intact, is healthy with good turgor, Skin is pink, warm \\T\\ dry. normal. Musculoskeletal: Circulation, motion, and sensation intact. Capillary refill < 3 seconds, Reports bodyache. Vital Signs: 12:20 BP 136 / 94; Pulse 84; Resp 16; Temp 97.1; Pulse Ox 100% on R/A; Weight 80.74 kg; hb Height 5 ft. (152.40 cm); Pain 8/10; 12:46 BP 126 / 90; Pulse 81; Resp 18; Pulse Ox 98% on R/A; mg2 15:23 BP 140 / 89; Pulse 71; Resp 18; Pulse Ox 100% on R/A; mg2 17:11 BP 147 / 74; Pulse 89; Resp 18; Pulse Ox 100% on R/A; mg2 18:00 BP 140 / 70; Pulse 80; Resp 18; Temp 98(O); Pulse Ox 100% ; mg2 12:20 Body Mass Index 34.76 (80.74 kg, 152.40 cm) hb ED Course: 12:13 Patient arrived in ED. mr 12:19 Triage completed. hb 12:20 Arm band placed on. hb 12:29 Juan Bynum, [place] is Primary Nurse. mg2 12:34 Souleymane Cantu MD is Attending Physician. wa 12:47 Patient has correct armband on for positive identification. mg2 12:47 No provider procedures requiring assistance completed. mg2 13:44 Initial lab(s) drawn, by me, sent to lab. Inserted saline lock: 22 gauge in right lt1 antecubital area, using aseptic technique. 13:48 EKG done, by low voltage technician. reviewed by Souleymane Cantu MD. tc 17:33 Leo Ramirez MD is Referral Physician. wa 17:50 IV discontinued, intact, bleeding controlled, No redness/swelling at site. Pressure mg2 dressing applied. Administered Medications: 13:50 Drug: NS 0.9% 1000 ml Route: IV; Rate: 1 bolus; Site: right antecubital; mg2 14:45 Follow up: Response: No adverse reaction; IV Status: Completed infusion; IV Intake: mg2 1000ml 13:50 Drug: TORadol 30 mg Route: IVP; Site: right antecubital; mg2 14:45 Follow up: Response: No adverse reaction mg2 14:55 Drug: Decadron - Dexamethasone 10 mg Route: IVP; Site: right antecubital; mg2 16:00 Follow up: Response: No adverse reaction mg2 15:18 Drug: Tylenol 1000 mg Route: PO; mg2 16:00 Follow up: Response: No adverse reaction; Marked relief of symptoms mg2 Intake: 14:45 IV: 1000ml; Total: 1000ml. mg2 Outcome: 17:34 Discharge ordered by . dang 17:50 Discharged to home via wheelchair, with family. mg2 17:50 Condition: stable 17:50 Discharge instructions given to patient, family, Instructed on discharge instructions, mg2 follow up and referral plans. medication usage, Demonstrated understanding of instructions, follow-up care, medications, Prescriptions given X 1. 17:51 Patient left the ED. rv Signatures: Pina Delacruz mr Valentina, Angella, margarine maker EKG Ttc Edel Alicia RN RN Souleymane Cantu MD MD wa Gardose, Michele, RN RN mg2 Vicente, Ronaldo, RN RN Dennise, Ginger lt1 Corrections: (The following items were deleted from the chart) 18:34 17:11 BP 147 / 274; Pulse 89bpm; Resp 18bpm; Pulse Ox 100% RA; mg2 mg2
--- NOTE | 2019-05-27 17:35 | EDPHYS ---
Physician Documentation [facility] Name: Carmen Macias Age: 43 yrs Sex: Female : 1975 Arrival Date: 05/27/2019 Time: 12:13 Bed 26 Private MD: ED Physician Souleymane Cantu HPI: 05/27 13:54 This 43 yrs old Female presents to ER via Wheelchair with complaints of Pain wa All Over. 13:54 pt states was dx'd with lupus in [place]. Moved here this past November. 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 states having a "lupus flare" as hurting all over. Actually states dx of lupus was made by her doc in [place] but has actually never seen a dealer sales rep. has been getting prednisone scripts from ER. states 10 mg prednisone not working. also tells me she moved here to get off drugs. recent relapse for crystal meth. . Onset: The symptoms/episode began/occurred 3 day(s) ago. Severity of symptoms: At their worst the symptoms were moderate in the emergency department the symptoms are unchanged. The patient has experienced similar episodes in the past, several times. The patient has not recently seen a physician. as noted above. 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 - Social history:: Smoking status: Patient uses tobacco products, smokes one pack cigarettes per day. - Ebola Screening: : No symptoms or risks identified at this time. - Family history:: not pertinent. - Hospitalizations: : No recent hospitalization is reported. ROS: 13:58 Eyes: Negative for injury, pain, redness, and discharge, ENT: Negative for injury, wa pain, and discharge, Neck: Negative for injury, pain, and swelling, Cardiovascular: Negative for chest pain, palpitations, and edema, Respiratory: Negative for shortness of breath, cough, wheezing, and pleuritic chest pain, Abdomen/GI: Negative for abdominal pain, nausea, vomiting, diarrhea, and constipation, Back: Negative for injury and pain, : Negative for injury, bleeding, discharge, and swelling, Skin: Negative for injury, rash, and discoloration, Neuro: Negative for headache, weakness, numbness, tingling, and seizure, Psych: Negative for depression, anxiety, suicide ideation, homicidal ideation, and hallucinations. 13:58 Constitutional: Positive for body aches, generalized, Negative for chills, fever. 13:58 MS/extremity: Positive for pain, of the all over. 13:58 All other systems are negative. Exam: 14:00 Constitutional: This is a well developed, well nourished patient who is awake, alert, wa and in no acute distress. Head/Face: Normocephalic, atraumatic. Eyes: Pupils equal round and reactive to light, extra-ocular motions intact. Lids and lashes normal. Conjunctiva and sclera are non-icteric and not injected. Cornea within normal limits. Periorbital areas with no swelling, redness, or edema. ENT: Nares patent. No nasal discharge, no septal abnormalities noted. Tympanic membranes are normal and external auditory canals are clear. Oropharynx with no redness, swelling, or masses, exudates, or evidence of obstruction, uvula midline. Mucous membranes moist. Neck: Trachea midline, no thyromegaly or masses palpated, and no cervical lymphadenopathy. Supple, full range of motion without nuchal rigidity, or vertebral point tenderness. No Meningismus. Chest/axilla: Normal chest wall appearance and motion. Nontender with no deformity. No lesions are appreciated. Cardiovascular: Regular rate and rhythm with a normal S1 and S2. No gallops, murmurs, or rubs. Normal PMI, no JVD. No pulse deficits. Respiratory: Lungs have equal breath sounds bilaterally, clear to auscultation and percussion. No rales, rhonchi or wheezes noted. No increased work of breathing, no retractions or nasal flaring. Abdomen/GI: Soft, non-tender, with normal bowel sounds. No distension or tympany. No guarding or rebound. No evidence of tenderness throughout. Back: No spinal tenderness. No costovertebral tenderness. Full range of motion. Skin: Warm, dry with normal turgor. Normal color with no rashes, no lesions, and no evidence of cellulitis. MS/ Extremity: Pulses equal, no cyanosis. Neurovascular intact. Full, normal range of motion. Neuro: Awake and alert, GCS 15, oriented to person, place, time, and situation. Cranial nerves II-XII grossly intact. Motor strength 5/5 in all extremities. Sensory grossly intact. Cerebellar exam normal. Normal gait. Psych: Awake, alert, with orientation to person, place and time. Behavior, mood, and affect are within normal limits. Vital Signs: 12:20 BP 136 / 94; Pulse 84; Resp 16; Temp 97.1; Pulse Ox 100% on R/A; Weight 80.74 kg; hb Height 5 ft. (152.40 cm); Pain 8/10; 12:46 BP 126 / 90; Pulse 81; Resp 18; Pulse Ox 98% on R/A; mg2 15:23 BP 140 / 89; Pulse 71; Resp 18; Pulse Ox 100% on R/A; mg2 17:11 BP 147 / 74; Pulse 89; Resp 18; Pulse Ox 100% on R/A; mg2 18:00 BP 140 / 70; Pulse 80; Resp 18; Temp 98(O); Pulse Ox 100% ; mg2 12:20 Body Mass Index 34.76 (80.74 kg, 152.40 cm) hb MDM: 12:34 Patient medically screened. wa 17:28 Differential Diagnosis r/o acute infection. r/o kidney failure. consider drug wa withdrawal. labs, symptom treatment. reassess. Data reviewed: vital signs, nurses notes. Test interpretation: by ED physician or midlevel provider: labs noted for wbc of 11.7. H/H 11.1/32.9. platelet of 489. SED rate 100. Response to treatment: the patient's symptoms have markedly improved after treatment. ED course: received antiinflammatory pain meds and decadron in ED. will d/c with prednisone burst. will refer to rheum. advised to quit recreational drug use. pt not receptive to conversation regarding getting help, i.e. rehab. 05/27 13:26 Order name: Basic Metabolic Panel; Complete Time: 14:40 05/27 13:26 Order name: CBC with Diff; Complete Time: 14:40 05/27 13:26 Order name: ETOH Level; Complete Time: 14:40 05/27 13:26 Order name: Hepatic Function; Complete Time: 14:40 05/27 13:26 Order name: PT-INR; Complete Time: 14:40 ga 05/27 13:27 Order name: Urine Drug Screen; Complete Time: 15:20 ga 05/27 13:27 Order name: EKG; Complete Time: 13:28 ga 05/27 14:00 Order name: Sed Rate; Complete Time: 14:40 ga 05/27 14:51 Order name: Urine Dipstick--Ancillary (enter results); Complete Time: 15:20 05/27 14:51 Order name: Urine --Ancillary (enter results); Complete Time: 15:20 05/27 13:26 Order name: Urine Test (obtain specimen); Complete Time: 14:45 ga 05/27 13:27 Order name: EKG - Nurse/Tech; Complete Time: 13:45 ga 05/27 13:27 Order name: IV Saline Lock; Complete Time: 13:45 ga 05/27 13:27 Order name: Labs collected and sent; Complete Time: 13:45 ga 05/27 13:27 Order name: Urine Dipstick-Ancillary (obtain specimen); Complete Time: 14:45 ga Administered Medications: 13:50 Drug: NS 0.9% 1000 ml Route: IV; Rate: 1 bolus; Site: right antecubital; mg2 14:45 Follow up: Response: No adverse reaction; IV Status: Completed infusion; IV Intake: mg2 1000ml 13:50 Drug: TORadol 30 mg Route: IVP; Site: right antecubital; mg2 14:45 Follow up: Response: No adverse reaction mg2 14:55 Drug: Decadron - Dexamethasone 10 mg Route: IVP; Site: right antecubital; mg2 16:00 Follow up: Response: No adverse reaction mg2 15:18 Drug: Tylenol 1000 mg Route: PO; mg2 16:00 Follow up: Response: No adverse reaction; Marked relief of symptoms mg2 Disposition: 05/27/19 17:34 Discharged to Home. Impression: acute generalized pain, recreational drug uabuse. - Condition is Stable. - Discharge Instructions: Musculoskeletal Pain. - Prescriptions for Prednisone 20 mg Oral Tablet - take 2 tablet by ORAL route once daily for 5 days; 10 tablet. - Medication Reconciliation Form, Thank You Letter, Antibiotic Education, Prescription Opioid Use form. - Follow up: Leo Ramirez MD; When: 2 - 3 days; Reason: Recheck today's complaints. - Problem is new. - Symptoms have improved. - Notes: follow up with primary care for further evaluation. you may be referred to see a dealer sales rep. martha quit using recreationa methamphetamines as it is detrimental to your health Signatures: Dispatcher [employer] EDEdel Sellers, RN RN Souleymane Cantu MD MD wa Gardose, Michele, RN RN [facility] [place] Coker RN RN rv Corrections: (The following items were deleted from the chart) 17:51 17:34 05/27/2019 17:34 Discharged to Home. Impression: acute generalized pain; rv recreational drug uabuse. Condition is Stable. Forms are Medication Reconciliation Form, Thank You Letter, Antibiotic Education, Prescription Opioid Use. Follow up: Leo Ramirez; When: 2 - 3 days; Reason: Recheck today's complaints. Problem is new. Symptoms have improved. wa
[2019-05-27 19:09] VITALS: TEMP 97.1
[2019-05-27 19:11] VITALS: BP 140/89; O2SAT 100
--- NOTE | 2019-05-28 06:37 | EKG ---
Test Date: 2019-05-27 Test Time: 13:43:24 Wet Plant Operator: SCOOBY MEASUREMENT RESULTS: Intervals: Rate: 72 GA: 142 QRSD: 88 QT: 422 QTc: 462 [place]: P: 11 GA: 142 QRS: 17 T: 61 INTERPRETIVE STATEMENTS: Normal sinus rhythm Normal ECG No previous ECG available for comparison Electronically Signed On 05-28-19 06:36:57 STEEL HANDLER by Alec Velasquez
== END 2019-05-27 17:51 | disposition home or self-care (01) ==
LOC: ER 12:10
DX: R52 Pain, unspecified (principal); F19.10 Other psychoactive substance abuse, uncomplicated; F17.210 Nicotine dependence, cigarettes, uncomplicated
CPT/HCPCS: 36415; 80048; 80076; 80307; 80320; 81003; 81025; 85025; 85610; 85652; 93005; 96361; 96374; 96375; 99284; J1100; J7030

== ENCOUNTER 2019-06-09 13:40 | Emergency (ER) | payer SELFPAY ==
[2019-06-09 14:33] LABS: Absolute Lymphocytes (CBC) 2.6 K/uL (0.7-4.9); Basophils % 1.3 % (0-1.3); Hematocrit 35.1 % (36.0-45.0); Lymphocytes % 28.8 % (15.3-44.8); RBC Red Blood Cell Count 4.33 M/uL (3.86-4.86)
[2019-06-09 14:50] LABS: BUN Blood Urea Nitrogen 12 mg/dL (7-18); Bicarbonate 29 mmol/L (21-32); Glucose Level 95 mg/dL (74-106); Potassium 3.6 mmol/L (3.5-5.1); Sodium Level 139 mmol/L (136-145)
[2019-06-09 14:55] LABS: HCG, Quantitative < 1 mIU/mL (1-3)
[2019-06-09 14:56] LABS: Urine Blood 2+ (NEG); Urine Glucose NEGATIVE (NEG); Urine Protein NEGATIVE (NEG)
--- NOTE | 2019-06-09 15:04 | ER ---
Nurse's Notes [facility] Name: Carmen Macias Age: 43 yrs Sex: Female : 1975 Arrival Date: 06/09/2019 Time: 13:42 Bed 13 Private MD: Diagnosis: Abnormal uterine and vaginal bleeding, unspecified Presentation: 06/09 13:50 Presenting complaint: Spotty vaginal bleeding x 2-3 days. + home test. hb Reports hx of lupus, was self medicating with meth, has not used in 2 weeks. Transition of care: patient was not received from another setting of care. Onset of symptoms was June 07, 2019. Risk Assessment: Do you want to hurt yourself or someone else? Patient reports no desire to harm self or others. Care prior to arrival: None. 13:50 Method Of Arrival: Ambulatory hb 13:50 Acuity: SUSANNA 3 hb 14:52 Initial Sepsis Screen: Does the patient meet any 2 criteria? No. Patient's initial ca1 sepsis screen is negative. Does the patient have a suspected source of infection? No. Patient's initial sepsis screen is negative. 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 - Social history:: Smoking status: Patient/guardian denies using tobacco. - Ebola Screening: : No symptoms or risks identified at this time. Screenin:05 Abuse screen: Denies threats or abuse. Denies injuries from another. Nutritional ca1 screening: No deficits noted. Tuberculosis screening: No symptoms or risk factors identified. Fall Risk IV access (20 points). Assessment: 14:05 General: Appears in no apparent distress. comfortable, Behavior is calm, cooperative, ca1 appropriate for age. Pain: Denies pain. Neuro: Level of Consciousness is awake, alert, obeys commands, Oriented to person, place, time, situation. Cardiovascular: Heart tones S1 S2 present Capillary refill < 3 seconds Patient's skin is warm and dry. Respiratory: Airway is patent Respiratory effort is even, unlabored, Respiratory pattern is regular, symmetrical, Breath sounds are clear bilaterally. GI: Abdomen is round non-distended, Bowel sounds present X 4 quads. Abd is soft and non tender X 4 quads. : Reports vaginal bleeding that is bright red, spotty, since yesterday. EENT: No deficits noted. No signs and/or symptoms were reported regarding the EENT system. Derm: Skin is intact, is healthy with good turgor, Skin is pink, warm \T\ dry. Musculoskeletal: Circulation, motion, and sensation intact. Capillary refill < 3 seconds, Range of motion: intact in all extremities. 15:15 Reassessment: Patient appears in no apparent distress at this time. Patient is alert, ca1 oriented x 3, equal unlabored respirations, skin warm/dry/pink. Vital Signs: 13:52 BP 132 / 88; Pulse 91; Resp 16; Temp 97.8(TE); Pulse Ox 97% on R/A; Weight 90.72 kg; hb Height 5 ft. (152.40 cm); Pain 3/10; 15:15 BP 124 / 86; Pulse 99; Resp 17 S; Pulse Ox 98% on R/A; ca1 13:52 Body Mass Index 39.06 (90.72 kg, 152.40 cm) hb ED Course: 13:42 Patient arrived in ED. rg4 13:51 Triage completed. hb 13:52 Arm band placed on. hb 13:58 Bakari Power NP is PHCP. pm1 13:58 Vinny Catherine MD is Attending Physician. pm1 14:05 Patient has correct armband on for positive identification. Placed in gown. Bed in low ca1 position. Call light in reach. Side rails up X 1. Pulse ox on. NIBP on. Warm blanket given. 14:07 Anjelica Velasquez, RN is Primary Nurse. ca1 14:25 No provider procedures requiring assistance completed. Initial lab(s) drawn, by ca, ca1 sent to lab. Inserted saline lock: 22 gauge in right antecubital area, using aseptic technique. Blood collected. 15:16 IV discontinued, intact, bleeding controlled, No redness/swelling at site. Pressure ca1 dressing applied. Administered Medications: No medications were administered Outcome: 15:03 Discharge ordered by . pm1 15:16 Discharged to home ambulatory. ca1 15:16 Condition: stable 15:16 Discharge instructions given to patient, Instructed on discharge instructions, follow up and referral plans. Demonstrated understanding of instructions, follow-up care. 15:17 Patient left the ED. ca1 Signatures: Bakari Power NP DIE CUTTER pm1 Edel Alicia, RN RN Anni Miles rg4 Anjelica Velasquez RN RN ca1
--- NOTE | 2019-06-09 15:04 | EDPHYS ---
Physician Documentation [facility] Name: Carmen Macias Age: 43 yrs Sex: Female : 1975 Arrival Date: 06/09/2019 Time: 13:42 Bed 13 Private MD: ED Physician Vinny Catherine HPI: 06/09 14:08 This 43 yrs old Female presents to ER via Ambulatory with complaints of pm1 Vaginal Bleeding. 14:08 The patient presents to the emergency department with vaginal bleeding, that is light, pm1 only with wiping. Associated signs and symptoms: The patient has no apparent associated signs or symptoms, Pertinent negatives: abdominal pain, chest pain, diarrhea, dysuria, fever, nausea, shortness of breath, vomiting. reports light vaginal bleeding with 4th and 5th pregnancies. The patient has not recently seen a physician. Patient took home test last night that was positive. Has a history of methamphetamine use. Reports last used two weeks ago. 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 - Social history:: Smoking status: Patient/guardian denies using tobacco. - Ebola Screening: : No symptoms or risks identified at this time. ROS: 14:08 Constitutional: Negative for fever, chills, and weight loss, Neck: Negative for injury, pm1 pain, and swelling, Cardiovascular: Negative for chest pain, palpitations, and edema, Respiratory: Negative for shortness of breath, cough, wheezing, and pleuritic chest pain, Abdomen/GI: Negative for abdominal pain, nausea, vomiting, diarrhea, and constipation, Back: Negative for injury and pain. 14:08 MS/Extremity: Negative for injury and deformity, Skin: Negative for injury, rash, and discoloration, Neuro: Negative for headache, weakness, numbness, tingling, and seizure. 14:08 : Positive for vaginal bleeding, Negative for urinary symptoms, flank pain. Exam: 14:08 Constitutional: This is a well developed, well nourished patient who is awake, alert, pm1 and in no acute distress. Head/Face: Normocephalic, atraumatic. Neck: Trachea midline, no thyromegaly or masses palpated, and no cervical lymphadenopathy. Supple, full range of motion without nuchal rigidity, or vertebral point tenderness. No Meningismus. Chest/axilla: Normal chest wall appearance and motion. Nontender with no deformity. No lesions are appreciated. Cardiovascular: Regular rate and rhythm with a normal S1 and S2. No gallops, murmurs, or rubs. Normal PMI, no JVD. No pulse deficits. Respiratory: Lungs have equal breath sounds bilaterally, clear to auscultation and percussion. No rales, rhonchi or wheezes noted. No increased work of breathing, no retractions or nasal flaring. 14:08 Back: No spinal tenderness. No costovertebral tenderness. Full range of motion. Skin: Warm, dry with normal turgor. Normal color with no rashes, no lesions, and no evidence of cellulitis. MS/ Extremity: Pulses equal, no cyanosis. Neurovascular intact. Full, normal range of motion. 14:08 Abdomen/GI: Inspection: abdomen appears normal, Bowel sounds: normal, Palpation: abdomen is soft and non-tender, mass, is not appreciated, rebound tenderness, is not appreciated. 14:08 Neuro: Orientation: is normal, Motor: is normal, moves all fours, Sensation: is normal, no obvious gross deficits. Vital Signs: 13:52 BP 132 / 88; Pulse 91; Resp 16; Temp 97.8(TE); Pulse Ox 97% on R/A; Weight 90.72 kg; hb Height 5 ft. (152.40 cm); Pain 3/10; 15:15 BP 124 / 86; Pulse 99; Resp 17 S; Pulse Ox 98% on R/A; ca1 13:52 Body Mass Index 39.06 (90.72 kg, 152.40 cm) hb MDM: 14:03 Patient medically screened. pm1 14:27 ED course: Patient just wants to know if she is . Would like the blood work and pm1 urine test but does not want the ultrasound. Wants to "save it for another time.". 15:02 Data reviewed: vital signs. Data interpreted: Pulse oximetry: on room air is 97 %. pm1 Interpretation: normal. Counseling: I had a detailed discussion with the patient and/or guardian regarding: the historical points, exam findings, and any diagnostic results supporting the discharge/admit diagnosis, lab results, the need for outpatient follow up, to return to the emergency department if symptoms worsen or persist or if there are any questions or concerns that arise at home. 06/09 14:08 Order name: Quantitative Hcg; Complete Time: 15:02 pm1 06/09 14:08 Order name: Abo/rh Typing pm1 06/09 14:08 Order name: Basic Metabolic Panel; Complete Time: 15:02 pm1 06/09 14:08 Order name: CBC with Diff; Complete Time: 15:02 pm1 06/09 14:34 Order name: Test, Serum; Complete Time: 15:32 ca1 06/09 14:43 Order name: Urine Dipstick--Ancillary (enter results); Complete Time: 15:02 bd 06/09 13:59 Order name: Urine Dipstick-Ancillary (obtain specimen); Complete Time: 14:34 pm1 06/09 13:59 Order name: Urine Test (obtain specimen); Complete Time: 14:34 pm1 06/09 14:08 Order name: IV Saline Lock; Complete Time: 14:08 pm1 06/09 14:08 Order name: Labs collected and sent; Complete Time: 14:08 pm1 06/09 14:08 Order name: NPO; Complete Time: 14:08 pm1 06/09 14:43 Order name: Urine --Ancillary (enter results); Complete Time: 15:02 bd Administered Medications: No medications were administered Disposition: 06/10 07:04 Co-signature as Attending Physician, Vinny Catherine MD Did not see or evaluate patient. ps1 Signing chart for administrative purposes. Not an endorsement of care. . Disposition: 06/09/19 15:03 Discharged to Home. Impression: Abnormal uterine and vaginal bleeding, unspecified. - Condition is Stable. - Discharge Instructions: Abnormal Uterine Bleeding. - Medication Reconciliation Form, Thank You Letter, Antibiotic Education, Prescription Opioid Use form. - Follow up: Emergency Department; When: As needed; Reason: Worsening of condition. Follow up: Private Physician; When: 2 - 3 days; Reason: Recheck today's complaints, Continuance of care, Re-evaluation by your physician. - Problem is new. - Symptoms have improved. Signatures: Dispatcher [employer] EDMS Bakari Power, PIGMENT FURNACE TENDER PIGMENT FURNACE TENDER pm1 Edel Alicia, RN RN hb Vinny Catherine MD MD ps1 Anjelica Velasquez RN RN ca1 Corrections: (The following items were deleted from the chart) 06/09 15:17 15:03 06/09/2019 15:03 Discharged to Home. Impression: Abnormal uterine and vaginal ca1 bleeding, unspecified. Condition is Stable. Forms are Medication Reconciliation Form, Thank You Letter, Antibiotic Education, Prescription Opioid Use. Follow up: Emergency Department; When: As needed; Reason: Worsening of condition. Follow up: Private Physician; When: 2 - 3 days; Reason: Recheck today's complaints, Continuance of care, Re-evaluation by your physician. Problem is new. Symptoms have improved. pm1
[2019-06-09 20:56] VITALS: TEMP 97.8
[2019-06-09 20:57] VITALS: BP 124/86; O2SAT 98
== END 2019-06-09 15:17 | disposition home or self-care (01) ==
LOC: ER 13:40
DX: N93.9 Abnormal uterine and vaginal bleeding, unspecified (principal)
CPT/HCPCS: 36415; 80048; 81003; 81025; 84702; 84703; 85025; 86900; 86901; 99283

== ENCOUNTER 2019-06-14 15:46 | Emergency (ER) | payer SELFPAY ==
[2019-06-14 16:49] LABS: Lymphocytes % 22.9 % (15.3-44.8); MPV 7.6 fL (7.6-11.3); RBC Red Blood Cell Count 4.11 M/uL (3.86-4.86)
[2019-06-14 17:06] LABS: BUN Blood Urea Nitrogen 10 mg/dL (7-18); Bicarbonate 27 mmol/L (21-32); Glucose Level 93 mg/dL (74-106); Potassium 3.8 mmol/L (3.5-5.1); Sodium Level 138 mmol/L (136-145); Troponin (Emerg Dept Use Only) < 0.02 ng/mL (0.0-0.045)
--- NOTE | 2019-06-14 17:11 | RAD REPORT ---
EXAM DESCRIPTION: RAD - Chest Pa And Lat (2 Views) - 06/14/2019 5:00 pm CLINICAL HISTORY: CHEST PAIN Chest pain. COMPARISON: No comparisons FINDINGS: The lungs are clear. The heart is normal in size. No displaced fractures. IMPRESSION: No acute or concerning finding suspected.
--- NOTE | 2019-06-14 17:13 | EDPHYS ---
Physician Documentation [facility] Name: Carmen Macias Age: 43 yrs Sex: Female : 1975 Arrival Date: 06/14/2019 Time: 15:48 Bed 20 Private MD: ED Physician Terrance Moe HPI: 06/14 16:17 This 43 yrs old Female presents to ER via Ambulatory with complaints of kb Swelling of Lower Extremity. 16:19 Pt reports she is having a lupus flare. States it is exactly like previous flares. Pain kb and swelling in joints for a few weeks. States she doesn't come in until she starts having trouble with mobility and right now its hard to walk and make fists. Also reports intermittent right sided chest pain for a couple of weeks. "I think it is because I stopped smoking." Does not have a PCP so she said she comes here when she has flares and gets steroids to help it. Requests referral to commissioning editor. . Onset: The symptoms/episode began/occurred 2 week(s) ago. Severity of symptoms: At their worst the symptoms were moderate in the emergency department the symptoms are unchanged. The patient has experienced similar episodes in the past, chronically. The patient has been recently seen at the [facility] Emergency Department, a couple of weeks ago, for similar complaints. 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 - Social history:: Smoking status: Patient/guardian denies using tobacco. - Ebola Screening: : No symptoms or risks identified at this time. ROS: 16:16 Constitutional: Negative for fever, chills, and weight loss, ENT: Negative for injury, kb pain, and discharge, Neck: Negative for injury, pain, and swelling, Respiratory: Negative for shortness of breath, cough, wheezing, and pleuritic chest pain, Abdomen/GI: Negative for abdominal pain, nausea, vomiting, diarrhea, and constipation, Back: Negative for injury and pain, Skin: Negative for injury, rash, and discoloration, Neuro: Negative for headache, weakness, numbness, tingling, and seizure. 16:16 Cardiovascular: Positive for chest pain, of the anterior aspect of right upper chest. 16:16 MS/extremity: Positive for pain, swelling, tenderness, of the left foot and right foot and left hand and right hand and right knee and left knee. Exam: 16:15 Constitutional: This is a well developed, well nourished patient who is awake, alert, kb and in no acute distress. Head/Face: Normocephalic, atraumatic. ENT: Nares patent. No nasal discharge, no septal abnormalities noted. Tympanic membranes are normal and external auditory canals are clear. Oropharynx with no redness, swelling, or masses, exudates, or evidence of obstruction, uvula midline. Mucous membranes moist. Neck: Trachea midline, no thyromegaly or masses palpated, and no cervical lymphadenopathy. Supple, full range of motion without nuchal rigidity, or vertebral point tenderness. No Meningismus. Chest/axilla: Normal chest wall appearance and motion. Nontender with no deformity. No lesions are appreciated. Cardiovascular: Regular rate and rhythm with a normal S1 and S2. No gallops, murmurs, or rubs. Normal PMI, no JVD. No pulse deficits. Respiratory: Lungs have equal breath sounds bilaterally, clear to auscultation and percussion. No rales, rhonchi or wheezes noted. No increased work of breathing, no retractions or nasal flaring. Abdomen/GI: Soft, non-tender, with normal bowel sounds. No distension or tympany. No guarding or rebound. No evidence of tenderness throughout. Skin: Warm, dry with normal turgor. Normal color with no rashes, no lesions, and no evidence of cellulitis. Neuro: Awake and alert, GCS 15, oriented to person, place, time, and situation. Cranial nerves II-XII grossly intact. Motor strength 5/5 in all extremities. Sensory grossly intact. Cerebellar exam normal. Normal gait. 16:15 Musculoskeletal/extremity: Extremities: grossly normal except: noted in the right hand, left hand, right foot, left foot, right knee and left knee: pain, swelling, tenderness, ROM: limited active range of motion due to pain, Circulation is intact in all extremities. Sensation intact. Weight bearing: able to fully bear weight. Vital Signs: 16:00 BP 129 / 102; Pulse 94; Resp 18; Temp 98.4; Pulse Ox 99% on R/A; Weight 81.65 kg; ph Height 5 ft. 0 in. (152.40 cm); Pain 7/10; 16:55 BP 145 / 92; Pulse 74; Resp 18; Pulse Ox 99% on R/A; em 16:00 Body Mass Index 35.15 (81.65 kg, 152.40 cm) ph MDM: 16:01 Patient medically screened. kb 16:15 Data reviewed: vital signs, nurses notes. Data interpreted: Pulse oximetry: on room air kb is 99 %. Interpretation: normal. 16:29 ED course: Information given for commissioning editor in [place] ([facility]) and [facility]. 17:08 Counseling: I had a detailed discussion with the patient and/or guardian regarding: the kb historical points, exam findings, and any diagnostic results supporting the discharge/admit diagnosis, lab results, radiology results, the need for outpatient follow up, a family practitioner, to return to the emergency department if symptoms worsen or persist or if there are any questions or concerns that arise at home. 06/14 16:13 Order name: CBC with Diff; Complete Time: 16:57 kb 06/14 16:13 Order name: Basic Metabolic Panel; Complete Time: 17:07 kb 06/14 16:13 Order name: Troponin (emerg Dept Use Only); Complete Time: 17:07 kb 06/14 16:13 Order name: Chest Pa And Lat (2 Views) XRAY; Complete Time: 17:12 kb 06/14 16:21 Order name: Urine Dipstick--Ancillary (enter results) ms 06/14 16:21 Order name: Urine --Ancillary (enter results) ms 06/14 16:13 Order name: EKG; Complete Time: 16:14 kb 06/14 16:13 Order name: EKG - Nurse/Tech; Complete Time: 16:36 kb 06/14 16:13 Order name: IV Start; Complete Time: 16:36 kb Administered Medications: 16:30 Drug: NS 0.9% 1000 ml Route: IV; Rate: 1000 ml; Site: right forearm; em 17:27 Follow up: IV Status: Completed infusion em 16:30 Drug: Decadron - Dexamethasone 10 mg Route: IVP; Site: right forearm; iw 17:27 Follow up: Response: No adverse reaction; Marked relief of symptoms; Pain is decreased em 16:32 Drug: TORadol - Ketorolac 15 mg Route: IVP; Site: right forearm; iw 17:28 Follow up: Response: No adverse reaction; Pain is decreased em Disposition: 06/15 07:09 Co-signature as Attending Physician, Terrance Moe MD I agree with the assessment and kdr plan of care. Disposition: 06/14/19 17:13 Discharged to Home. Impression: Lupus erythematosus. - Condition is Stable. - Discharge Instructions: Systemic Lupus Erythematosus, Adult. - Prescriptions for Celebrex 100 mg Oral Capsule - take 1 tablet by ORAL route once daily As needed take with food; 20 capsule. Medrol (Suraj) 4 mg Oral Tablets, Dose Pack - take 1 tablet by ORAL route as directed - follow package instructions; 1 packet. - Medication Reconciliation Form, Thank You Letter, Antibiotic Education, Prescription Opioid Use form. - Follow up: Emergency Department; When: As needed; Reason: Worsening of condition. Follow up: Private Physician; When: 2 - 3 days; Reason: Recheck today's complaints, Continuance of care, Re-evaluation by your physician. Signatures: Dispatcher [employer] Donna Pérez, SENIOR SEARCH MARKETING ANALYST-C SENIOR SEARCH MARKETING ANALYST-Terrance Miranda MD MD [facility] Clint Morris, WOODWINDS TEACHER WOODWINDS TEACHER em Chaya Fontanez RN RN Joselin Mckinnon RN RN ph Corrections: (The following items were deleted from the chart) 06/14 17:32 17:13 06/14/2019 17:13 Discharged to Home. Impression: Lupus erythematosus. Condition em is Stable. Prescriptions for Celebrex 100 mg Oral Capsule - take 1 tablet by ORAL route once daily As needed take with food; 20 capsule, Medrol (Suraj) 4 mg Oral Tablets, Dose Pack - take 1 tablet by ORAL route as directed - follow package instructions; 1 packet. and Forms are Medication Reconciliation Form, Thank You Letter, Antibiotic Education, Prescription Opioid Use. Follow up: Emergency Department; When: As needed; Reason: Worsening of condition. Follow up: Private Physician; When: 2 - 3 days; Reason: Recheck today's complaints, Continuance of care, Re-evaluation by your physician. kb
--- NOTE | 2019-06-14 17:13 | ER ---
Nurse's Notes [facility] Name: Carmen Macias Age: 43 yrs Sex: Female : 1975 Arrival Date: 06/14/2019 Time: 15:48 Bed 20 Private MD: Diagnosis: Lupus erythematosus Presentation: 06/14 15:57 Presenting complaint: Patient states: Lupus flare, c/o pain and swelling to bilateral ph hands, feet and knees, also reports intermittent chest pain. Transition of care: patient was not received from another setting of care. Onset of symptoms was June 14, 2019. Risk Assessment: Do you want to hurt yourself or someone else? Patient reports no desire to harm self or others. Initial Sepsis Screen: Does the patient meet any 2 criteria? No. Patient's initial sepsis screen is negative. Does the patient have a suspected source of infection? No. Patient's initial sepsis screen is negative. 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 - Social history:: Smoking status: Patient/guardian denies using tobacco. - Ebola Screening: : No symptoms or risks identified at this time. Screenin:20 Abuse screen: Denies threats or abuse. Nutritional screening: No deficits noted. em Tuberculosis screening: No symptoms or risk factors identified. Fall Risk None identified. Assessment: 16:20 General: Appears in no apparent distress. 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 Pain: Complains of pain in chest and left leg and right leg and left foot and right foot and left hand and right hand and right knee and left knee Pain currently is 7 out of 10 on a pain scale. Quality of pain is described as pressure. Neuro: Level of Consciousness is awake, alert, obeys commands, Oriented to person, place, time, situation, Appropriate for age. Cardiovascular: Capillary refill < 3 seconds Patient's skin is warm and dry. Rhythm is sinus rhythm Chest pain is located in left anterior. Respiratory: Airway is patent Respiratory effort is even, unlabored, Respiratory pattern is regular, symmetrical. GI: Reports nausea. Derm: Skin is intact, is healthy with good turgor, Skin is pink, warm \T\ dry. Musculoskeletal: Capillary refill < 3 seconds, Range of motion: intact in all extremities. Vital Signs: 16:00 BP 129 / 102; Pulse 94; Resp 18; Temp 98.4; Pulse Ox 99% on R/A; Weight 81.65 kg; ph Height 5 ft. 0 in. (152.40 cm); Pain 7/10; 16:55 BP 145 / 92; Pulse 74; Resp 18; Pulse Ox 99% on R/A; em 16:00 Body Mass Index 35.15 (81.65 kg, 152.40 cm) ph ED Course: 15:48 Patient arrived in ED. mr 15:49 Donna Godwin FNP-C [facility]. kb 15:49 Terrance Moe MD is Attending Physician. kb 16:00 Triage completed. ph 16:01 Arm band placed on Patient placed in an exam room. ph 16:02 Clint Morris LVN is Primary Nurse. em 16:20 Patient has correct armband on for positive identification. Placed in gown. Bed in low em position. Call light in reach. Adult w/ patient. Pulse ox on. NIBP on. 16:30 Inserted saline lock: 22 gauge in right forearm, using aseptic technique. Blood em collected. 16:30 Initial lab(s) drawn, by me, sent to lab. em 16:34 EKG done, by ED staff, reviewed by Donna HARVEY. dh3 16:58 Chest Pa And Lat (2 Views) XRAY In Process Unspecified. EDMS 17:26 No provider procedures requiring assistance completed. IV discontinued, intact, em bleeding controlled, No redness/swelling at site. Pressure dressing applied. Administered Medications: 16:30 Drug: NS 0.9% 1000 ml Route: IV; Rate: 1000 ml; Site: right forearm; em 17:27 Follow up: IV Status: Completed infusion em 16:30 Drug: Decadron - Dexamethasone 10 mg Route: IVP; Site: right forearm; iw 17:27 Follow up: Response: No adverse reaction; Marked relief of symptoms; Pain is decreased em 16:32 Drug: TORadol - Ketorolac 15 mg Route: IVP; Site: right forearm; iw 17:28 Follow up: Response: No adverse reaction; Pain is decreased em Outcome: 17:13 Discharge ordered by MD. stock 17:26 Discharged to home ambulatory. em 17:26 Condition: good 17:26 Discharge instructions given to patient, Instructed on discharge instructions, follow up and referral plans. medication usage, Demonstrated understanding of instructions, follow-up care, medications, Prescriptions given X 2. 17:32 Patient left the ED. em Signatures: Dispatcher [employer] EDDonna Laughlin, ALYSSAC MEDICAL STENOGRAPHER-Amadorb Pina Delacruz mr oMrris, Clint, LINTER DRIER OPERATOR LINTER DRIER OPERATOR em Chaya Fontanez, [place] KC Joselin Mckinnon RN RN Armando, Niki [facility] Corrections: (The following items were deleted from the chart) 16:54 16:20 General: Appears in no apparent distress. 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
[2019-06-14 17:52] VITALS: TEMP 98.4; O2SAT 99
[2019-06-14 17:53] VITALS: BP 145/92
[2019-06-14 18:59] LABS: Urine Blood TRACE (NEG); Urine Glucose NEGATIVE (NEG); Urine Protein NEGATIVE (NEG); Urine Specific Gravity 1.025 (1.005-1.030); Urine pH 5.5 (5.0-7.0)
--- NOTE | 2019-06-15 14:14 | EKG ---
Test Date: 2019-06-14 Test Time: 16:31:16 Radio Installer: ROSA ISELA MEASUREMENT RESULTS: Intervals: Rate: 70 OH: 146 QRSD: 86 QT: 412 QTc: 444 [place]: P: 10 OH: 146 QRS: 7 T: 61 INTERPRETIVE STATEMENTS: Normal sinus rhythm Normal ECG Compared to ECG 05/27/2019 13:43:24 No significant changes Electronically Signed On 06-15-19 14:13:45 PATTERN CHANGER AND REPAIRER by Ramy Santos
== END 2019-06-14 17:32 | disposition home or self-care (01) ==
LOC: ER 15:46
DX: L93.0 Discoid lupus erythematosus (principal); F31.9 Bipolar disorder, unspecified
CPT/HCPCS: 36415; 71046; 80048; 81003; 81025; 84484; 85025; 93005; 96361; 96374; 96375; 99284

== ENCOUNTER 2019-07-05 16:57 | Emergency (ER) | payer SELFPAY ==
[2019-07-05] MEDS ORDERED: METHYLPREDNISOLONE 125 MG INJ ONE (18:29)
[2019-07-05] MEDS ORDERED: MORPHINE 4 MG/ML SYR ONE (18:30)
[2019-07-05] MEDS ORDERED: predniSONE 20 MG TAB ONE (18:30)
[2019-07-05] MEDS ORDERED: ONDANSETRON 4 MG/2 ML VIAL ONE (18:30)
[2019-07-05] MEDS ORDERED: NA CHLORIDE 0.9% 1,000 ML ONE (18:30)
[2019-07-05 18:34] LABS: Absolute Lymphocytes (CBC) 2.1 K/uL (0.7-4.9); Basophils % 0.2 % (0-1.3); Hematocrit 30.9 % (36.0-45.0); Lymphocytes % 22.2 % (15.3-44.8); MPV 7.5 fL (7.6-11.3); Protime INR 1.08; RBC Red Blood Cell Count 3.83 M/uL (3.86-4.86)
--- NOTE | 2019-07-05 19:06 | RAD REPORT ---
EXAM DESCRIPTION: RAD - Chest Single View - 07/05/2019 6:58 pm CLINICAL HISTORY: COUGH Chest pain. COMPARISON: Chest Pa And Lat (2 Views) dated 06/14/2019 FINDINGS: Portable technique limits examination quality. The lungs are grossly clear. The heart is normal in size. No displaced fractures. IMPRESSION: No acute intrathoracic process suspected.
[2019-07-05 19:07] LABS: ALT/SGPT 20 U/L (12-78); AST/SGOT 15 U/L (15-37); Albumin 2.7 g/dL (3.4-5.0); Alkaline Phosphatase 81 U/L (45-117); BUN Blood Urea Nitrogen 12 mg/dL (7-18); Bicarbonate 27 mmol/L (21-32); Bilirubin Direct < 0.1 mg/dL (0-0.2); Bilirubin Total 0.3 mg/dL (0.2-1.0); Glucose Level 80 mg/dL (74-106); Lipase 49 U/L (73-393); Magnesium 2.2 mg/dL (1.8-2.4); NT PRO-BNP 59 pg/mL (<125); Potassium 3.4 mmol/L (3.5-5.1); Protein, Total 7.6 g/dL (6.4-8.2); Sodium Level 138 mmol/L (136-145); Troponin (Emerg Dept Use Only) < 0.02 ng/mL (0.0-0.045)
--- NOTE | 2019-07-05 19:26 | EDPHYS ---
Physician Documentation [facility] Name: Carmen Macias Age: 43 yrs Sex: Female : 1975 Arrival Date: 07/05/2019 Time: 16:58 Bed 30 Private MD: ED Physician Singh Ragsdale HPI: 07/05 18:07 This 43 yrs old Female presents to ER via Ambulatory with complaints of Lupus tyson Flare. 18:07 The patient or guardian complains of decreased range of motion. The complaints affect tyosn the right antecubital area and right elbow, left antecubital area and left elbow. The patient presents with decreased range of motion, pain, that is acute. Historical: - Allergies: 17:12 No Known Allergies; sv - PMHx: 17:12 Bipolar disorder; Lupus; sv - PSHx: 17:12 None; sv - Immunization history:: Adult Immunizations unknown. - Family history:: not pertinent. - Social history:: Smoking status: unknown. - Ebola Screening: : No symptoms or risks identified at this time. ROS: 18:07 Constitutional: Negative for fever, chills, and weight loss, Eyes: Negative for injury, tyson pain, redness, and discharge, ENT: Negative for injury, pain, and discharge, Neck: Negative for injury, pain, and swelling, Cardiovascular: Negative for chest pain, palpitations, and edema, Respiratory: Negative for shortness of breath, cough, wheezing, and pleuritic chest pain, Abdomen/GI: Negative for abdominal pain, nausea, vomiting, diarrhea, and constipation, Back: Negative for injury and pain, : Negative for injury, bleeding, discharge, and swelling, Skin: Negative for injury, rash, and discoloration, Neuro: Negative for headache, weakness, numbness, tingling, and seizure, Psych: Negative for depression, anxiety, suicide ideation, homicidal ideation, and hallucinations, Allergy/Immunology: Negative for hives, rash, and allergies, Endocrine: Negative for neck swelling, polydipsia, polyuria, polyphagia, and marked weight changes. 18:07 MS/extremity: Positive for decreased range of motion, pain, of the right arm, left arm, right leg and left leg. Exam: 18:07 Constitutional: This is a well developed, well nourished patient who is awake, alert, tyson and in no acute distress. Head/Face: Normocephalic, atraumatic. Eyes: Pupils equal round and reactive to light, extra-ocular motions intact. Lids and lashes normal. Conjunctiva and sclera are non-icteric and not injected. Cornea within normal limits. Periorbital areas with no swelling, redness, or edema. ENT: Nares patent. No nasal discharge, no septal abnormalities noted. Tympanic membranes are normal and external auditory canals are clear. Oropharynx with no redness, swelling, or masses, exudates, or evidence of obstruction, uvula midline. Mucous membranes moist. Neck: Trachea midline, no thyromegaly or masses palpated, and no cervical lymphadenopathy. Supple, full range of motion without nuchal rigidity, or vertebral point tenderness. No Meningismus. Chest/axilla: Normal chest wall appearance and motion. Nontender with no deformity. No lesions are appreciated. Cardiovascular: Regular rate and rhythm with a normal S1 and S2. No gallops, murmurs, or rubs. Normal PMI, no JVD. No pulse deficits. Respiratory: Lungs have equal breath sounds bilaterally, clear to auscultation and percussion. No rales, rhonchi or wheezes noted. No increased work of breathing, no retractions or nasal flaring. Abdomen/GI: Soft, non-tender, with normal bowel sounds. No distension or tympany. No guarding or rebound. No evidence of tenderness throughout. Back: No spinal tenderness. No costovertebral tenderness. Full range of motion. Skin: Warm, dry with normal turgor. Normal color with no rashes, no lesions, and no evidence of cellulitis. Neuro: Awake and alert, GCS 15, oriented to person, place, time, and situation. Cranial nerves II-XII grossly intact. Motor strength 5/5 in all extremities. Sensory grossly intact. Cerebellar exam normal. Normal gait. Psych: Awake, alert, with orientation to person, place and time. Behavior, mood, and affect are within normal limits. 18:07 Musculoskeletal/extremity: ROM: intact in all extremities, full active range of motion, full passive range of motion, Circulation is intact in all extremities. Sensation intact. Compartment Syndrome exam of affected extremity: is normal. DVT Exam: negative Homans' sign noted on exam, no appreciated bluish discoloration, no erythema, no increased warmth, pain, swelling, tenderness. Vital Signs: 17:12 BP 148 / 104; Pulse 94; Resp 18; Temp 97.8; Pulse Ox 98% ; Weight 77.11 kg; Height 5 sv ft. 0 in. (152.40 cm); Pain 8/10; 19:00 BP 136 / 91; Pulse 95; Resp 15; Pulse Ox 98% on R/A; rv 20:00 BP 129 / 96; Pulse 89; Resp 18; Pulse Ox 99% on R/A; rv 17:12 Body Mass Index 33.20 (77.11 kg, 152.40 cm) sv MDM: 17:49 Patient medically screened. [facility] 18:10 Data reviewed: vital signs, nurses notes, lab test result(s), EKG, radiologic studies, tyson plain films. 07/05 18:06 Order name: Basic Metabolic Panel; Complete Time: 19:24 [facility] 07/05 18:06 Order name: CBC with Diff; Complete Time: 19:24 [facility] 07/05 18:06 Order name: LFT's; Complete Time: 19:24 [facility] 07/05 18:06 Order name: Magnesium; Complete Time: 19:24 [facility] 07/05 18:06 Order name: NT PRO-BNP; Complete Time: 19:24 [facility] 07/05 18:06 Order name: PT-INR; Complete Time: 19:24 [facility] 07/05 18:06 Order name: Troponin (emerg Dept Use Only); Complete Time: 19:24 [facility] 07/05 18:06 Order name: XRAY Chest (1 view); Complete Time: 19:24 [facility] 07/05 18:06 Order name: Lipase; Complete Time: 19:24 [facility] 07/05 19:39 Order name: Urine Dipstick--Ancillary (enter results) ar5 07/05 18:06 Order name: EKG; Complete Time: 18:08 [facility] 07/05 18:06 Order name: Cardiac monitoring; Complete Time: 18:51 [facility] 07/05 18:06 Order name: EKG - Nurse/Tech; Complete Time: 19:10 [facility] 07/05 18:06 Order name: IV Saline Lock; Complete Time: 18:51 [facility] 07/05 18:06 Order name: Labs collected and sent; Complete Time: 18:51 [facility] 07/05 18:06 Order name: O2 Per Protocol; Complete Time: 18:51 [facility] 07/05 18:06 Order name: O2 Sat Monitoring; Complete Time: 18:51 [facility] 07/05 18:06 Order name: Urine Dipstick-Ancillary (obtain specimen); Complete Time: 19:39 [facility] Administered Medications: 18:52 Drug: NS 0.9% 1000 ml Route: IV; Rate: 1 bolus; Site: left antecubital; rv 20:05 Follow up: IV Status: Completed infusion; IV Intake: 1000ml rv 18:53 Drug: SOLU-Medrol 125 mg Route: IVP; Site: left antecubital; rv 20:06 Follow up: Response: No adverse reaction rv 18:53 Drug: predniSONE 40 mg Route: PO; rv 20:06 Follow up: Response: No adverse reaction rv 18:53 Drug: morphine 4 mg {Note: rass 0.} Route: IVP; Site: left antecubital; rv 20:06 Follow up: Response: No adverse reaction; Marked relief of symptoms; Pain is decreased; rv RASS: Alert and Calm (0) 18:53 Drug: Zofran 4 mg Route: IVP; Site: left antecubital; rv 20:07 Follow up: Response: No adverse reaction rv 19:40 Drug: Potassium Effervescent Tablet 25 mEq Route: PO; rv 20:04 Follow up: Response: Medication administered at discharge. rv Disposition: 07/05/19 19:25 Discharged to Home. Impression: Lupus erythematosus, Hypokalemia. - Condition is Stable. - Discharge Instructions: Potassium Content of Foods, Knee Effusion, Systemic Lupus Erythematosus, Adult, Knee Effusion, [id number], Hypokalemia. - Prescriptions for Ibuprofen 600 mg Oral Tablet - take 1 tablet by ORAL route 3 times per day As needed take with food; 21 tablet. Prednisone 20 mg Oral Tablet - take 2 tablet by ORAL route once daily for 5 days; 10 tablet. Tylenol- Codeine #3 300-30 mg Oral Tablet - take 2 tablet by ORAL route every 6 hours As needed; 30 tablet. - Medication Reconciliation Form, Thank You Letter, Antibiotic Education, Prescription Opioid Use form. - Follow up: Private Physician; When: 2 - 3 days; Reason: Recheck today's complaints, Continuance of care, Re-evaluation by your physician. - Problem is new. - Symptoms have improved. Signatures: Dispatcher [employer] Cinthya Hudson, RN RN Singh Quispe MD MD cha Vicente, Ronaldo, RN RN rv Corrections: (The following items were deleted from the chart) 20:08 19:25 07/05/2019 19:25 Discharged to Home. Impression: Lupus erythematosus; rv Hypokalemia. Condition is Stable. Discharge Instructions: Knee Effusion, Systemic Lupus Erythematosus, Adult, Knee Effusion, [id number]. Prescriptions for Ibuprofen 600 mg Oral Tablet - take 1 tablet by ORAL route 3 times per day As needed take with food; 21 tablet, Prednisone 20 mg Oral Tablet - take 2 tablet by ORAL route once daily for 5 days; 10 tablet, Tylenol-Codeine #3 300-30 mg Oral Tablet - take 2 tablet by ORAL route every 6 hours As needed; 30 tablet. and Forms are Medication Reconciliation Form, Thank You Letter, Antibiotic Education, Prescription Opioid Use. Follow up: Private Physician; When: 2 - 3 days; Reason: Recheck today's complaints, Continuance of care, Re-evaluation by your physician. Problem is new. Symptoms have improved. tyson
--- NOTE | 2019-07-05 19:26 | ER ---
Nurse's Notes [facility] Name: Carmen Macias Age: 43 yrs Sex: Female : 1975 Arrival Date: 07/05/2019 Time: 16:58 Bed 30 Private MD: Diagnosis: Lupus erythematosus;Hypokalemia Presentation: 07/05 17:11 Presenting complaint: Patient states: lupus flare up x 2 weeks. Ran out of her sv medications. Transition of care: patient was not received from another setting of care. Onset of symptoms was June 2019. Risk Assessment: Do you want to hurt yourself or someone else? Patient reports no desire to harm self or others. Care prior to arrival: None. 17:11 Method Of Arrival: Ambulatory sv 17:11 Acuity: SUSANNA 3 sv 18:54 Initial Sepsis Screen: Does the patient meet any 2 criteria? No. Patient's initial rv sepsis screen is negative. Does the patient have a suspected source of infection? No. Patient's initial sepsis screen is negative. Historical: - Allergies: 17:12 No Known Allergies; sv - PMHx: 17:12 Bipolar disorder; Lupus; sv - PSHx: 17:12 None; sv - Immunization history:: Adult Immunizations unknown. - Family history:: not pertinent. - Social history:: Smoking status: unknown. - Ebola Screening: : No symptoms or risks identified at this time. Screenin:54 Abuse screen: Denies threats or abuse. Denies injuries from another. Nutritional rv screening: No deficits noted. Tuberculosis screening: No symptoms or risk factors identified. Fall Risk None identified. Assessment: 18:53 General: Appears in no apparent distress. comfortable, Behavior is calm, cooperative. rv Pain: Complains of pain in joints. Neuro: Level of Consciousness is awake, alert, obeys commands, Oriented to person, place, time, situation. Cardiovascular: Patient's skin is warm and dry. Respiratory: Airway is patent. GI: No signs and/or symptoms were reported involving the gastrointestinal system. : No signs and/or symptoms were reported regarding the genitourinary system. EENT: No signs and/or symptoms were reported regarding the EENT system. Derm: Skin is intact. Vital Signs: 17:12 BP 148 / 104; Pulse 94; Resp 18; Temp 97.8; Pulse Ox 98% ; Weight 77.11 kg; Height 5 sv ft. 0 in. (152.40 cm); Pain 8/10; 19:00 BP 136 / 91; Pulse 95; Resp 15; Pulse Ox 98% on R/A; rv 20:00 BP 129 / 96; Pulse 89; Resp 18; Pulse Ox 99% on R/A; rv 17:12 Body Mass Index 33.20 (77.11 kg, 152.40 cm) sv ED Course: 16:58 Patient arrived in ED. as 17:12 Triage completed. sv 17:12 Arm band placed on. sv 17:49 Singh Ragsdale MD is Attending Physician. tyson 17:56 Ok Coker, [place] is Primary Nurse. rv 18:51 Inserted saline lock: 22 gauge in left antecubital area, using aseptic technique. Blood rv collected. 18:54 No provider procedures requiring assistance completed. rv 18:55 Patient has correct armband on for positive identification. Placed in gown. Bed in low rv position. Call light in reach. Pulse ox on. NIBP on. 19:02 XRAY Chest (1 view) In Process Unspecified. EDMS 19:12 EKG done, by ED staff, reviewed by Singh Ragsdale MD. jp3 20:08 IV discontinued, intact, bleeding controlled, No redness/swelling at site. Pressure rv dressing applied. Administered Medications: 18:52 Drug: NS 0.9% 1000 ml Route: IV; Rate: 1 bolus; Site: left antecubital; rv 20:05 Follow up: IV Status: Completed infusion; IV Intake: 1000ml rv 18:53 Drug: SOLU-Medrol 125 mg Route: IVP; Site: left antecubital; rv 20:06 Follow up: Response: No adverse reaction rv 18:53 Drug: predniSONE 40 mg Route: PO; rv 20:06 Follow up: Response: No adverse reaction rv 18:53 Drug: morphine 4 mg {Note: rass 0.} Route: IVP; Site: left antecubital; rv 20:06 Follow up: Response: No adverse reaction; Marked relief of symptoms; Pain is decreased; rv RASS: Alert and Calm (0) 18:53 Drug: Zofran 4 mg Route: IVP; Site: left antecubital; rv 20:07 Follow up: Response: No adverse reaction rv 19:40 Drug: Potassium Effervescent Tablet 25 mEq Route: PO; rv 20:04 Follow up: Response: Medication administered at discharge. rv Intake: 20:05 IV: 1000ml; Total: 1000ml. rv Outcome: 19:25 Discharge ordered by . tyson 20:08 Discharged to home ambulatory, with family. rv 20:08 Condition: good 20:08 Discharge instructions given to patient, Instructed on discharge instructions, follow up and referral plans. medication usage, Demonstrated understanding of instructions, follow-up care, medications, Prescriptions given X 2. 20:08 Patient left the ED. rv Signatures: Dispatcher [employer] EDMS Cinthya Lott RN RN sv Anderson, Corey, MD MD cha Martinez, Amelia as Vicente, Ronaldo, [place] RN Ethan Loving jp3
[2019-07-05] MEDS ORDERED: POTASSIUM 25 MEQ EFFERV TAB ONE (19:42)
[2019-07-05 20:20] LABS: Urine Blood 1+ (NEG); Urine Glucose NEGATIVE (NEG); Urine Protein NEGATIVE (NEG)
[2019-07-05 22:31] VITALS: TEMP 97.8
[2019-07-05 22:34] VITALS: BP 129/96; O2SAT 99
--- NOTE | 2019-07-06 16:23 | EKG ---
Test Date: 2019-07-05 Test Time: 19:06:07 Player Development Manager: JD MEASUREMENT RESULTS: Intervals: Rate: 65 CT: 152 QRSD: 92 QT: 432 QTc: 449 Vantage: P: 21 CT: 152 QRS: 18 T: 54 INTERPRETIVE STATEMENTS: Normal sinus rhythm Nonspecific T wave abnormality Abnormal ECG Compared to ECG 06/14/2019 16:31:16 T-wave abnormality now present Electronically Signed On 07-06-19 16:22:32 CASE ADVOCATE by Ramy Santos
== END 2019-07-05 20:08 | disposition home or self-care (01) ==
LOC: ER 16:57
DX: L93.0 Discoid lupus erythematosus (principal); E87.6 Hypokalemia
CPT/HCPCS: 36415; 71045; 80048; 80076; 81003; 83690; 83735; 83880; 84484; 85025; 85610; 93005; 96361; 96374; 96375; 99284; J2405; J2930; J7030; J7512

== ENCOUNTER 2019-07-26 14:00 | Emergency (ER) | payer SELFPAY ==
[2019-07-26] MEDS ORDERED: dexAMETHasone 10 MG/ML VIAL ONE (15:56)
[2019-07-26] MEDS ORDERED: KETOROLAC 30 MG/ML INJ ONE (15:56)
[2019-07-26] MEDS ORDERED: NA CHLORIDE 0.9% 1,000 ML ONE (15:56)
[2019-07-26 16:15] LABS: Absolute Lymphocytes (CBC) 1.5 K/uL (0.7-4.9); Basophils % 1.4 % (0-1.3); Hematocrit 32.6 % (36.0-45.0); Lymphocytes % 21.5 % (15.3-44.8); MPV 7.5 fL (7.6-11.3); RBC Red Blood Cell Count 4.05 M/uL (3.86-4.86)
[2019-07-26 16:26] LABS: ALT/SGPT 29 U/L (12-78); AST/SGOT 22 U/L (15-37); Albumin 2.5 g/dL (3.4-5.0); Alkaline Phosphatase 85 U/L (45-117); BUN Blood Urea Nitrogen 10 mg/dL (7-18); Bicarbonate 27 mmol/L (21-32); Bilirubin Total 0.3 mg/dL (0.2-1.0); Glucose Level 102 mg/dL (74-106); Potassium 3.3 mmol/L (3.5-5.1); Protein, Total 7.1 g/dL (6.4-8.2); Sodium Level 138 mmol/L (136-145)
--- NOTE | 2019-07-26 16:37 | ER ---
Nurse's Notes [facility] Name: Carmen Macias Age: 43 yrs Sex: Female : 1975 Arrival Date: 07/26/2019 Time: 14:04 Bed 24 Private MD: Diagnosis: Lupus erythematosus Presentation: 07/26 14:46 Presenting complaint: Patient states: "I'm just having a bad lupus flare up." Reports jl7 severe pain all over x 2 days. Transition of care: patient was not received from another setting of care. Onset of symptoms was July 24, 2019. Risk Assessment: Do you want to hurt yourself or someone else? Patient reports no desire to harm self or others. Initial Sepsis Screen: Does the patient meet any 2 criteria? No. Patient's initial sepsis screen is negative. Does the patient have a suspected source of infection? No. Patient's initial sepsis screen is negative. Care prior to arrival: None. 14:46 Method Of Arrival: Wheelchair jl7 14:46 Acuity: SUSANNA 3 jl7 Triage Assessment: 14:48 General: Appears in no apparent distress. uncomfortable, Behavior is calm, cooperative, jl7 appropriate for age. Pain: Complains of pain in all over Pain currently is 8 out of 10 on a pain scale. Quality of pain is described as aching. 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 - Social history:: Smoking status: Patient uses tobacco products, smokes one-half pack cigarettes per day. - Ebola Screening: : No symptoms or risks identified at this time. Screenin:22 Abuse screen: Denies threats or abuse. Denies injuries from another. Nutritional mg2 screening: No deficits noted. Tuberculosis screening: No symptoms or risk factors identified. Fall Risk IV access (20 points). Assessment: 16:20 General: Appears in no apparent distress. comfortable, Behavior is calm, cooperative. mg2 Pain: Complains of pain in whole body. Neuro: Level of Consciousness is awake, alert, obeys commands, Oriented to person, place, time, situation. Cardiovascular: Capillary refill < 3 seconds Patient's skin is warm and dry. Respiratory: Airway is patent Respiratory effort is even, unlabored, Respiratory pattern is regular, symmetrical. GI: No signs and/or symptoms were reported involving the gastrointestinal system. : No signs and/or symptoms were reported regarding the genitourinary system. EENT: No signs and/or symptoms were reported regarding the EENT system. Derm: Skin is intact, is healthy with good turgor, Skin is pink, warm \\T\\ dry. normal. Musculoskeletal: Circulation, motion, and sensation intact. Capillary refill < 3 seconds, Reports pain in whole body. 16:50 Reassessment: Patient appears in no apparent distress at this time. Patient and/or mg2 family updated on plan of care and expected duration. Pain level reassessed. Patient is alert, oriented x 3, equal unlabored respirations, skin warm/dry/pink. patient for dc after completing iv fluid. Patient states feeling better. Vital Signs: 14:48 BP 160 / 85; Pulse 86; Resp 17 S; Temp 98.6(TE); Pulse Ox 100% on R/A; Weight 77.11 kg jl7 (R); Height 5 ft. 0 in. (152.40 cm) (R); Pain 8/10; 17:13 BP 135 / 78; Pulse 80; Resp 18; Temp 98; Pulse Ox 100% on R/A; Pain 2/10; mg2 14:48 Body Mass Index 33.20 (77.11 kg, 152.40 cm) jl7 ED Course: 14:04 Patient arrived in ED. mr 14:47 Triage completed. jl7 14:48 Arm band placed on right wrist. jl7 14:50 Patient placed in waiting room, in view of staff members, Patient notified of wait time.jl7 15:37 Bakari Power NP is PHCP. pm1 15:37 Singh Ragsdale MD is Attending Physician. pm1 15:52 Juan Bynum RN is Primary Nurse. mg2 16:22 Patient has correct armband on for positive identification. mg2 16:22 No provider procedures requiring assistance completed. Inserted saline lock: 20 gauge mg2 in right forearm, using aseptic technique. Blood collected. 17:16 IV discontinued, intact, bleeding controlled, No redness/swelling at site. Pressure mg2 dressing applied. Administered Medications: 16:08 Drug: NS 0.9% 1000 ml Route: IV; Rate: 1000 ml; Site: right forearm; mg2 17:12 Follow up: Response: No adverse reaction; IV Status: Completed infusion; IV Intake: mg2 1000ml 16:08 Drug: Decadron - Dexamethasone 10 mg Route: IVP; Site: right forearm; mg2 16:32 Follow up: Response: No adverse reaction mg2 16:08 Drug: TORadol - Ketorolac 15 mg Route: IVP; Site: left antecubital; mg2 16:32 Follow up: Response: No adverse reaction mg2 16:50 Drug: Potassium Effervescent Tablet 50 mEq Route: PO; mg2 16:50 Follow up: Response: No adverse reaction; Medication administered at discharge. mg2 Intake: 17:12 IV: 1000ml; Total: 1000ml. mg2 Outcome: 16:36 Discharge ordered by MD. pm1 17:16 Discharged to home via wheelchair, with family. mg2 17:16 Condition: stable 17:16 Discharge instructions given to patient, family, Instructed on discharge instructions, follow up and referral plans. medication usage, Demonstrated understanding of instructions, follow-up care, medications, Prescriptions given X 3. 17:17 Patient left the ED. mg2 Signatures: Pina Delacruz Patrick, NP MEDICAL BILL PROCESSOR pm1 Calvin Dooley RN RN jl7 Juan Bynum RN RN mg2
--- NOTE | 2019-07-26 16:38 | EDPHYS ---
Physician Documentation [facility] Name: Carmen Macias Age: 43 yrs Sex: Female : 1975 Arrival Date: 07/26/2019 Time: 14:04 Bed 24 Private MD: Singh Romo HPI: 07/26 15:45 This 43 yrs old Female presents to ER via Wheelchair with complaints of Lupus pm1 Flare up. 15:45 Patient reports flare up lupus. Has not seen a day habilitation specialist since moving to the ER pm1 due to finances. Therefore she comes to the ER for steroids when she gets flare ups. Complaining of joint pain and swelling to bilateral knees, ankles, and hands. Onset: The symptoms/episode began/occurred 2 day(s) ago. Severity of symptoms: in the emergency department the symptoms are worse. The patient has experienced similar episodes in the past, multiple times. The patient has not recently seen a physician. 15:45 Came to the ER requesting steroids, pain medications, and IV fluids. 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 - Social history:: Smoking status: Patient uses tobacco products, smokes one-half pack cigarettes per day. - Ebola Screening: : No symptoms or risks identified at this time. ROS: 15:45 Constitutional: Negative for fever, chills, and weight loss, Eyes: Negative for injury, pm1 pain, redness, and discharge, ENT: Negative for injury, pain, and discharge, Neck: Negative for injury, pain, and swelling, Cardiovascular: Negative for chest pain, palpitations, and edema, Respiratory: Negative for shortness of breath, cough, wheezing, and pleuritic chest pain, Abdomen/GI: Negative for abdominal pain, nausea, vomiting, diarrhea, and constipation, Back: Negative for injury and pain. 15:45 Skin: Negative for injury, rash, and discoloration, Neuro: Negative for headache, weakness, numbness, tingling, and seizure. 15:45 MS/extremity: Positive for pain, swelling, of the right hand, left hand and right knee and left knee, right ankle, and left ankle. Exam: 15:45 Constitutional: This is a well developed, well nourished patient who is awake, alert, pm1 and in no acute distress. Head/Face: Normocephalic, atraumatic. Eyes: Pupils equal round and reactive to light, extra-ocular motions intact. Lids and lashes normal. Conjunctiva and sclera are non-icteric and not injected. Cornea within normal limits. Periorbital areas with no swelling, redness, or edema. ENT: Nares patent. No nasal discharge, no septal abnormalities noted. Tympanic membranes are normal and external auditory canals are clear. Oropharynx with no redness, swelling, or masses, exudates, or evidence of obstruction, uvula midline. Mucous membranes moist. Neck: Trachea midline, no thyromegaly or masses palpated, and no cervical lymphadenopathy. Supple, full range of motion without nuchal rigidity, or vertebral point tenderness. No Meningismus. Chest/axilla: Normal chest wall appearance and motion. Nontender with no deformity. No lesions are appreciated. Cardiovascular: Regular rate and rhythm with a normal S1 and S2. No gallops, murmurs, or rubs. Normal PMI, no JVD. No pulse deficits. Respiratory: Lungs have equal breath sounds bilaterally, clear to auscultation and percussion. No rales, rhonchi or wheezes noted. No increased work of breathing, no retractions or nasal flaring. Abdomen/GI: Soft, non-tender, with normal bowel sounds. No distension or tympany. No guarding or rebound. No evidence of tenderness throughout. Back: No spinal tenderness. No costovertebral tenderness. Full range of motion. Skin: Warm, dry with normal turgor. Normal color with no rashes, no lesions, and no evidence of cellulitis. 15:45 Musculoskeletal/extremity: Extremities: grossly normal except: noted in the right hand and left hand: swelling, tenderness, There is no evidence of decreased ROM, deformity, noted in the right knee and left knee: swelling, tenderness, noted in the right and left ankle: swelling, tenderness. 15:45 Neuro: Orientation: is normal, Motor: is normal, Sensation: is normal. Vital Signs: 14:48 BP 160 / 85; Pulse 86; Resp 17 S; Temp 98.6(TE); Pulse Ox 100% on R/A; Weight 77.11 kg jl7 (R); Height 5 ft. 0 in. (152.40 cm) (R); Pain 8/10; 17:13 BP 135 / 78; Pulse 80; Resp 18; Temp 98; Pulse Ox 100% on R/A; Pain 2/10; mg2 14:48 Body Mass Index 33.20 (77.11 kg, 152.40 cm) jl7 MDM: 15:42 Patient medically screened. tyson 15:51 Data reviewed: vital signs. Data interpreted: Pulse oximetry: on room air is 100 %. pm1 Interpretation: normal. 16:34 Counseling: I had a detailed discussion with the patient and/or guardian regarding: the pm1 historical points, exam findings, and any diagnostic results supporting the discharge/admit diagnosis, lab results, the need for outpatient follow up, a day habilitation specialist, to return to the emergency department if symptoms worsen or persist or if there are any questions or concerns that arise at home. 07/26 15:44 Order name: CBC with Diff; Complete Time: 16:30 pm1 07/26 15:44 Order name: CMP; Complete Time: 16:30 pm1 07/26 15:44 Order name: IV Saline Lock; Complete Time: 16:08 pm1 Administered Medications: 16:08 Drug: NS 0.9% 1000 ml Route: IV; Rate: 1000 ml; Site: right forearm; mg2 17:12 Follow up: Response: No adverse reaction; IV Status: Completed infusion; IV Intake: mg2 1000ml 16:08 Drug: Decadron - Dexamethasone 10 mg Route: IVP; Site: right forearm; mg2 16:32 Follow up: Response: No adverse reaction mg2 16:08 Drug: TORadol - Ketorolac 15 mg Route: IVP; Site: left antecubital; mg2 16:32 Follow up: Response: No adverse reaction mg2 16:50 Drug: Potassium Effervescent Tablet 50 mEq Route: PO; mg2 16:50 Follow up: Response: No adverse reaction; Medication administered at discharge. mg2 Disposition: 07/26/19 16:36 Discharged to Home. Impression: Lupus erythematosus. - Condition is Stable. - Discharge Instructions: Systemic Lupus Erythematosus, Adult. - Prescriptions for Tylenol- Codeine #3 300-30 mg Oral Tablet - take 2 tablets by ORAL route every 6 hours As needed; 20 tablet. Diclofenac Sodium 75 mg Oral Tablet Sustained Release - take 1 tablet by ORAL route 2 times per day; 30 tablet. Medrol (Suraj) 4 mg Oral Tablets, Dose Pack - take 1 tablet by ORAL route as directed - follow package instructions; 1 packet. - Medication Reconciliation Form, Thank You Letter, Antibiotic Education, Prescription Opioid Use form. - Follow up: Emergency Department; When: As needed; Reason: Worsening of condition. Follow up: Private Physician; When: 2 - 3 days; Reason: Recheck today's complaints, Continuance of care, Re-evaluation by your physician. - Problem is new. - Symptoms have improved. Addendum: 07/28/2019 09:29 Co-signature as Attending Physician, Singh Ragsdale MD I agree with the assessment and c king plan of care. Signatures: Dispatcher [employer] EDSingh Morris MD MD cha Marinas, Patrick, PHARMACY ASSOCIATE PHARMACY ASSOCIATE pm1 Calvin Dooley RN RN jl7 Juan Bynum RN RN mg2 Corrections: (The following items were deleted from the chart) 07/26 17:17 16:36 07/26/2019 16:36 Discharged to Home. Impression: Lupus erythematosus. Condition mg2 is Stable. Forms are Medication Reconciliation Form, Thank You Letter, Antibiotic Education, Prescription Opioid Use. Follow up: Emergency Department; When: As needed; Reason: Worsening of condition. Follow up: Private Physician; When: 2 - 3 days; Reason: Recheck today's complaints, Continuance of care, Re-evaluation by your physician. Problem is new. Symptoms have improved. pm1
[2019-07-26] MEDS ORDERED: POTASSIUM 25 MEQ EFFERV TAB ONE (16:39)
[2019-07-26 19:30] VITALS: O2SAT 100
[2019-07-26 19:32] VITALS: BP 135/78; TEMP 98
== END 2019-07-26 17:17 | disposition home or self-care (01) ==
LOC: ER 14:00
DX: L93.0 Discoid lupus erythematosus (principal); F17.210 Nicotine dependence, cigarettes, uncomplicated
CPT/HCPCS: 36415; 80053; 85025; 96361; 96374; 96375; 99284; J1100; J7030

== ENCOUNTER 2019-08-10 06:48 | Emergency (ER) | payer SELFPAY ==
[2019-08-10] MEDS ORDERED: METHYLPREDNISOLONE 125 MG INJ ONE (07:56)
[2019-08-10 07:57] LABS: Absolute Lymphocytes (CBC) 1.2 K/uL (0.7-4.9); Basophils % 1.1 % (0-1.3); Hematocrit 32.7 % (36.0-45.0); Lymphocytes % 13.2 % (15.3-44.8); MPV 7.3 fL (7.6-11.3)
[2019-08-10] MEDS ORDERED: MORPHINE 4 MG/ML SYR ONE (07:57)
[2019-08-10 08:15] LABS: ALT/SGPT 22 U/L (12-78); AST/SGOT 15 U/L (15-37); Albumin 2.6 g/dL (3.4-5.0); Alkaline Phosphatase 74 U/L (45-117); BUN Blood Urea Nitrogen 13 mg/dL (7-18); Bicarbonate 27 mmol/L (21-32); Bilirubin Direct 0.1 mg/dL (0-0.2); Bilirubin Total 0.4 mg/dL (0.2-1.0); Glucose Level 112 mg/dL (74-106); Potassium 3.6 mmol/L (3.5-5.1); Protein, Total 6.8 g/dL (6.4-8.2); Sodium Level 139 mmol/L (136-145)
--- NOTE | 2019-08-10 08:29 | ER ---
Nurse's Notes [facility] Name: Carmen Macias Age: 43 yrs Sex: Female : 1975 Arrival Date: 08/10/2019 Time: 06:52 Bed 19 [facility] MD: Diagnosis: Lupus erythematosus-Pain all over Presentation: 08/10 07:12 Presenting complaint: Patient states: is having a lupus flare up, has pain all over, iw got bad last night, ran out of her prednisone. Transition of care: patient was not received from another setting of care. Onset of symptoms was August 09, 2019. Risk Assessment: Do you want to hurt yourself or someone else? Patient reports no desire to harm self or others. Initial Sepsis Screen: Does the patient meet any 2 criteria? No. Patient's initial sepsis screen is negative. Does the patient have a suspected source of infection? No. Patient's initial sepsis screen is negative. Care prior to arrival: None. 07:12 Method Of Arrival: Wheelchair iw 07:12 Acuity: SUSANNA 3 iw Triage Assessment: 07:13 General: Appears in no apparent distress. comfortable, Behavior is calm, cooperative, bp appropriate for age. Pain: Complains of pain in GENERALIZED. EENT: No deficits noted. Neuro: No deficits noted. Cardiovascular: No deficits noted. Respiratory: No deficits noted. GI: No signs and/or symptoms were reported involving the gastrointestinal system. : No signs and/or symptoms were reported regarding the genitourinary system. Derm: No deficits noted. Musculoskeletal: No deficits noted. 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 - Social history:: Smoking status: Patient denies any tobacco usage or history of. - Ebola Screening: : Patient negative for fever greater than or equal to 101.5 degrees Fahrenheit, and additional compatible Ebola Virus Disease symptoms Patient denies exposure to infectious person Patient denies travel to an Ebola-affected area in the 21 days before illness onset No symptoms or risks identified at this time. Screenin:25 Abuse screen: Denies threats or abuse. Denies injuries from another. Nutritional bp screening: No deficits noted. Tuberculosis screening: No symptoms or risk factors identified. Fall Risk None identified. Assessment: 07:13 General: SEE TRIAGE NOTE. bp 08:20 Reassessment: PT AFFIRMS RELIEF OF INITIAL S/S. VS STABLE ON MONITOR. bp 09:05 Reassessment: PT D/C HOME VIA W/C WITH FAMILY, DX WITH LUPUS. bp Vital Signs: 07:13 BP 145 / 93; Pulse 79; Resp 18 S; Temp 98.2(TE); Pulse Ox 99% on R/A; Weight 79.38 kg; iw Height 5 ft. (152.40 cm); Pain 8/10; 08:15 BP 151 / 92; Pulse 73; Resp 16; Pulse Ox 98% ; bp 09:07 BP 134 / 83; Pulse 81; Resp 16; Temp 98.5; Pulse Ox 100% ; bp 07:13 Body Mass Index 34.18 (79.38 kg, 152.40 cm) iw ED Course: 06:52 Patient arrived in ED. es 07:13 Triage completed. iw 07:13 Arm band placed on. iw 07:19 Jasson Kaufman FNP-C is PHCP. la1 07:19 Gabbi Piedra MD is Attending Physician. la1 07:21 Radha Zarate is Primary Nurse. wh 07:22 Primary Nurse role handed off by Radha Zarate bp 07:22 Toni Benton, RN is Primary Nurse. bp 07:25 Patient has correct armband on for positive identification. Bed in low position. Call bp light in reach. Side rails up X2. 07:50 Inserted saline lock: 20 gauge in right forearm, using aseptic technique. Blood bp collected. 09:06 No provider procedures requiring assistance completed. IV discontinued, intact, bp bleeding controlled, No redness/swelling at site. Pressure dressing applied. Administered Medications: 07:45 Drug: SOLU-Medrol 125 mg Route: IVP; Site: right forearm; bp 08:22 Follow up: Response: No adverse reaction; Nausea is decreased bp 07:45 Drug: morphine 2 mg Route: IVP; Site: right forearm; bp 08:22 Follow up: Response: Pain is decreased bp 07:45 Drug: morphine 2 mg Route: IVP; Site: right forearm; bp Outcome: 08:28 Discharge ordered by MD. salgado :06 Discharged to home via wheelchair, with family. bp :06 Condition: stable :06 Discharge instructions given to patient, Instructed on discharge instructions, follow up and referral plans. medication usage, Demonstrated understanding of instructions, follow-up care, medications, Prescriptions given X 1. 09:08 Patient left the ED. bp Signatures: Missy Gonzalez Irene, RN RN iw Jasson Kaufman, MOISÉS-C [employer] Radha Zarate Brian, [place] RN bp
--- NOTE | 2019-08-10 08:29 | EDPHYS ---
Physician Documentation [facility] Name: Carmen Macias Age: 43 yrs Sex: Female : 1975 Arrival Date: 08/10/2019 Time: 06:52 Bed 19 Private MD: ED Physician Gabbi Piedra HPI: 08/10 07:52 This 43 yrs old Female presents to ER via Wheelchair with complaints of LUPUS. la1 07:52 Pt reports chronic issues with lupus and having pain all over today, has been seen here la1 multiple times in the past. . Onset: The symptoms/episode began/occurred 3 day(s) ago. Severity of symptoms: At their worst the symptoms were moderate. The patient has experienced similar episodes in the past, chronically. 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 - Social history:: Smoking status: Patient denies any tobacco usage or history of. - Ebola Screening: : Patient negative for fever greater than or equal to 101.5 degrees Fahrenheit, and additional compatible Ebola Virus Disease symptoms Patient denies exposure to infectious person Patient denies travel to an Ebola-affected area in the 21 days before illness onset No symptoms or risks identified at this time. ROS: 07:54 Constitutional: Negative for fever, chills, and weight loss, Eyes: Negative for injury, la1 pain, redness, and discharge, ENT: Negative for injury, pain, and discharge, Neck: Negative for injury, pain, and swelling, Cardiovascular: Negative for chest pain, palpitations, and edema, Respiratory: Negative for shortness of breath, cough, wheezing, and pleuritic chest pain, Abdomen/GI: Negative for abdominal pain, nausea, vomiting, diarrhea, and constipation, Back: Negative for injury and pain, : Negative for injury, bleeding, discharge, and swelling. 07:54 Skin: Negative for injury, rash, and discoloration, Neuro: Negative for headache, weakness, numbness, tingling, and seizure. 07:54 MS/extremity: Positive for pain, "all over". Exam: 07:54 Constitutional: This is a well developed, well nourished patient who is awake, alert, la1 and in no acute distress. Head/Face: Normocephalic, atraumatic. Eyes: Pupils equal round and reactive to light, extra-ocular motions intact. Periorbital areas with no swelling, redness, or edema. ENT: Mucous membranes moist. Neck: Trachea midline. No Meningismus. Chest/axilla: Normal chest wall appearance and motion. Cardiovascular: Regular rate and rhythm with a normal S1 and S2. Respiratory: Lungs have equal breath sounds bilaterally, clear to auscultation No rales, rhonchi or wheezes noted. No increased work of breathing, no retractions or nasal flaring. Abdomen/GI: Soft, non-tender, with normal bowel sounds. Skin: Warm, dry with normal turgor. Normal color with no rashes, no lesions, and no evidence of cellulitis. MS/ Extremity: Pulses equal, no cyanosis. Neurovascular intact. Full, normal range of motion. Vital Signs: 07:13 BP 145 / 93; Pulse 79; Resp 18 S; Temp 98.2(TE); Pulse Ox 99% on R/A; Weight 79.38 kg; iw Height 5 ft. (152.40 cm); Pain 8/10; 08:15 BP 151 / 92; Pulse 73; Resp 16; Pulse Ox 98% ; bp 09:07 BP 134 / 83; Pulse 81; Resp 16; Temp 98.5; Pulse Ox 100% ; bp 07:13 Body Mass Index 34.18 (79.38 kg, 152.40 cm) iw MDM: 07:19 Patient medically screened. la1 08:18 Data reviewed: vital signs, nurses notes, lab test result(s), I have discussed the la1 patient's presentation/case with the attending Emergency Department Physician; and as a result, I will. Data interpreted: Pulse oximetry: on room air is 99 %. Interpretation: normal. Counseling: I had a detailed discussion with the patient and/or guardian regarding: the historical points, exam findings, and any diagnostic results supporting the discharge/admit diagnosis, the presence of at least one elevated blood pressure reading (>120/80) during this emergency department visit, lab results, the need for outpatient follow up, a family practitioner, a animal geneticist, to return to the emergency department if symptoms worsen or persist or if there are any questions or concerns that arise at home. Medication response: morphine partially relieved the patient's pain. ED course: discussed need for primary care visits and FU with rheumatology. Pt warned about risks of continued frequent use of corticosteroids. 08/10 07:36 Order name: Basic Metabolic Panel; Complete Time: 08:16 08/10 07:36 Order name: CBC with Diff; Complete Time: 08:14 08/10 07:36 Order name: Hepatic Function; Complete Time: 08:16 08/10 07:36 Order name: IV Saline Lock; Complete Time: 07:58 08/10 07:36 Order name: Labs collected and sent; Complete Time: :58 Administered Medications: 07:45 Drug: SOLU-Medrol 125 mg Route: IVP; Site: right forearm; bp 08:22 Follow up: Response: No adverse reaction; Nausea is decreased bp 07:45 Drug: morphine 2 mg Route: IVP; Site: right forearm; bp 08:22 Follow up: Response: Pain is decreased bp 07:45 Drug: morphine 2 mg Route: IVP; Site: right forearm; bp Disposition: 15:21 Co-signature as Attending Physician, Gabbi Piedra MD. ma2 Disposition: 08/10/19 08:28 Discharged to Home. Impression: Lupus erythematosus - Pain all over. - Condition is Stable. - Discharge Instructions: Musculoskeletal Pain, Systemic Lupus Erythematosus, Adult. - Prescriptions for Prednisone 20 mg Oral Tablet - take 2 tablet by ORAL route once daily for 5 days; 10 tablet. - Medication Reconciliation Form, Thank You Letter form. - Follow up: Private Physician; When: 2 - 3 days; Reason: Recheck today's complaints, Re-evaluation by your physician. - Problem is an acute exacerbation. - Symptoms have improved. Signatures: Dispatcher [employer] Chaya Wellington RN RN iw Attema, Lee, CARDIOLOGY PHYSICIAN ASSISTANT-C CARDIOLOGY PHYSICIAN ASSISTANT-Cla1 Toni Benton RN RN bp Alzahri, Mohammad, MD MD ma2 Corrections: (The following items were deleted from the chart) 09:08 08:28 08/10/2019 08:28 Discharged to Home. Impression: Lupus erythematosus - Pain all bp over. Condition is Stable. Forms are Medication Reconciliation Form, Thank You Letter, Antibiotic Education, Prescription Opioid Use. Follow up: Private Physician; When: 2 - 3 days; Reason: Recheck today's complaints, Re-evaluation by your physician. Problem is an acute exacerbation. Symptoms have improved. la1
[2019-08-10 11:39] VITALS: BP 134/83; TEMP 98.5; O2SAT 100
== END 2019-08-10 09:08 | disposition home or self-care (01) ==
LOC: ER 06:48
DX: L93.0 Discoid lupus erythematosus (principal)
CPT/HCPCS: 36415; 80048; 80076; 85025; 96374; 96375; 99284; J2930

== ENCOUNTER 2019-08-22 15:32 | Emergency (ER) | payer SELFPAY ==
[2019-08-22] MEDS ORDERED: NA CHLORIDE 0.9% 1,000 ML ONE (16:46)
[2019-08-22] MEDS ORDERED: METHYLPREDNISOLONE 125 MG INJ ONE (16:46)
[2019-08-22] MEDS ORDERED: MORPHINE 2 MG/ML SYR ONE (16:46)
[2019-08-22 16:59] LABS: Absolute Lymphocytes (CBC) 2.1 K/uL (0.7-4.9); Hematocrit 34.8 % (36.0-45.0); Lymphocytes % 18.3 % (15.3-44.8); MPV 7.5 fL (7.6-11.3)
[2019-08-22 17:17] LABS: ALT/SGPT 15 U/L (12-78); AST/SGOT 12 U/L (15-37); Albumin 2.6 g/dL (3.4-5.0); Alkaline Phosphatase 76 U/L (45-117); BUN Blood Urea Nitrogen 8 mg/dL (7-18); Bicarbonate 29 mmol/L (21-32); Bilirubin Direct 0.1 mg/dL (0-0.2); Bilirubin Total 0.4 mg/dL (0.2-1.0); Glucose Level 107 mg/dL (74-106); Lipase 63 U/L (73-393); Potassium 3.3 mmol/L (3.5-5.1); Protein, Total 6.7 g/dL (6.4-8.2); Sodium Level 139 mmol/L (136-145)
--- NOTE | 2019-08-22 17:59 | EDPHYS ---
Physician Documentation [facility] Name: Carmen Macias Age: 43 yrs Sex: Female : 1975 Arrival Date: 08/22/2019 Time: 15:34 Bed 8 Private MD: ED Physician Mik Boyd HPI: 08/22 16:27 This 43 yrs old Female presents to ER via Wheelchair with complaints of Lupus jmm Flare Up. 16:27 Patient states she ran out of prednison 3 days ago and has since developed increased jmm pain to her joints. This is similar to previous lupus flares. . Onset: The symptoms/episode began/occurred gradually, 3 day(s) ago. The patient has experienced similar episodes in the past, several times. Pain is mainly localized to the knees and the wrists bilaterally. . Historical: - PMHx: 15:50 Bipolar disorder; Lupus; ss - PSHx: 15:50 ; ss - Immunization history:: Adult Immunizations up to date. - Coronavirus screen:: The patient has NOT traveled to [place], [place], or [place] in the past 14 days. The patient has NOT had contact with known/suspected case of Coronavirus?. - Social history:: Smoking status: Patient reports the use of cigarette tobacco products, denies chronic smoking, but will smoke occasionally. - Ebola Screening: : Patient negative for fever greater than or equal to 101.5 degrees Fahrenheit, and additional compatible Ebola Virus Disease symptoms Patient denies exposure to infectious person Patient denies travel to an Ebola-affected area in the 21 days before illness onset No symptoms or risks identified at this time. ROS: 16:27 Constitutional: Negative for fever, chills, and weight loss, Cardiovascular: Negative jmm for chest pain, palpitations, and edema, Respiratory: Negative for shortness of breath, cough, wheezing, and pleuritic chest pain. 16:27 MS/extremity: Positive for pain. 16:27 All other systems are negative. Exam: 16:27 Constitutional: This is a well developed, well nourished patient who is awake, alert, jmm and in no acute distress. Head/Face: atraumatic. Eyes: EOMI, no conjunctival erythema appreciated ENT: Moist Mucus Membranes Neck: Trachea midline, Supple Chest/axilla: Normal chest wall appearance and motion. Cardiovascular: Regular rate and rhythm. No edema appreciated Respiratory: Normal respirations, no respiratory distress appreciated Abdomen/GI: Non distended, soft Back: Normal ROM Skin: General appearance color normal MS/ Extremity: Moves all extremities, no obvious deformities appreciated, no edema noted to the lower extremities Neuro: Awake and alert, normal gait Psych: Behavior is normal, Mood is normal, Patient is cooperative and pleasant Vital Signs: 15:57 BP 146 / 72; Pulse 97; Resp 18; Temp 97.2; Pulse Ox 98% on R/A; Pain 7/10; sg 17:36 BP 133 / 71; Pulse 67; Resp 16; Pulse Ox 98% ; bp 18:41 BP 121 / 69; Pulse 71; Resp 16; Temp 97.5; Pulse Ox 98% ; bp MDM: 16:22 Patient medically screened. [facility] 17:58 Data reviewed: vital signs, nurses notes. Data reviewed: lab test result(s). [facility] Counseling: I had a detailed discussion with the patient and/or guardian regarding: the historical points, exam findings, and any diagnostic results supporting the discharge/admit diagnosis, lab results, the need for outpatient follow up, to return to the emergency department if symptoms worsen or persist or if there are any questions or concerns that arise at home. ED course: Patient states she feels much better. Patient will follow up with pcp next week and otherwise given strict return precautions. patient understood and agrees with the plan of care. . 08/22 16:23 Order name: Basic Metabolic Panel; Complete Time: 17:21 [facility] 08/22 16:23 Order name: CBC with Diff [facility] 08/22 16:23 Order name: Creatinine for Radiology; Complete Time: 17:21 [facility] 08/22 16:23 Order name: Hepatic Function; Complete Time: 17:21 [facility] 08/22 16:23 Order name: Lipase; Complete Time: 17:21 [facility] 08/22 16:23 Order name: IV Saline Lock; Complete Time: 16:54 [facility] 08/22 16:23 Order name: Labs collected and sent; Complete Time: 16:56 [facility] Administered Medications: 16:50 Drug: SOLU-Medrol 125 mg Route: IVP; Site: right forearm; bp 17:40 Follow up: Response: No adverse reaction bp 16:50 Drug: NS 0.9% 1000 ml Route: IV; Rate: 1 bolus; Site: right forearm; bp 18:43 Follow up: IV Status: Completed infusion bp 16:50 Drug: morphine 2 mg Route: IVP; Site: right forearm; bp 17:39 Follow up: Response: Pain is decreased bp Disposition: 19:05 Co-signature as Attending Physician, Mik Boyd MD. rn Disposition: 08/22/19 17:59 Discharged to Home. Impression: Lupus erythematosus. - Condition is Stable. - Discharge Instructions: Systemic Lupus Erythematosus, Adult. - Prescriptions for Prednisone 20 mg Oral Tablet - take 3 tablet by ORAL route once daily for 5 days; 15 tablet. Ultracet 37.5- 325 mg Oral Tablet - take 1 tablet by ORAL route every 6 hours - for up to 5 days; do not exceed 8 tablets per day.; 12 tablet. - Medication Reconciliation Form, Thank You Letter, Antibiotic Education, Prescription Opioid Use form. - Follow up: Private Physician; When: 2 - 3 days; Reason: Recheck today's complaints, Continuance of care, Re-evaluation by your physician. Signatures: Dispatcher [employer] EDAntoni Bryant RN RN Conrad Luna PA PA [facility] Mik Boyd MD MD rn Smirch, Shelby, RN RN ss Toni Benton RN RN bp Corrections: (The following items were deleted from the chart) 18:45 17:59 08/22/2019 17:59 Discharged to Home. Impression: Lupus erythematosus. Condition bp is Stable. Forms are Medication Reconciliation Form, Thank You Letter, Antibiotic Education, Prescription Opioid Use. Follow up: Private Physician; When: 2 - 3 days; Reason: Recheck today's complaints, Continuance of care, Re-evaluation by your physician. [facility]
--- NOTE | 2019-08-22 17:59 | ER ---
Nurse's Notes [facility] Name: Carmen Macias Age: 43 yrs Sex: Female : 1975 Arrival Date: 08/22/2019 Time: 15:34 Bed 8 Private MD: Diagnosis: Lupus erythematosus Presentation: 08/22 15:50 Presenting complaint: Patient states: Im having pain and shortness of breath, I think ss its my lupus that is acting up. Transition of care: patient was not received from another setting of care. Onset of symptoms was August 22, 2019. Risk Assessment: Do you want to hurt yourself or someone else? Patient reports no desire to harm self or others. Initial Sepsis Screen: Does the patient meet any 2 criteria? No. Patient's initial sepsis screen is negative. Does the patient have a suspected source of infection? No. Patient's initial sepsis screen is negative. Care prior to arrival: None. 15:50 Method Of Arrival: Wheelchair ss 15:50 Acuity: SUSANNA 3 ss Triage Assessment: 15:50 General: Appears in no apparent distress. comfortable, Behavior is cooperative, bp appropriate for age, anxious. Pain: Complains of pain in GENERALIZED. EENT: No deficits noted. Neuro: No deficits noted. Cardiovascular: No deficits noted. Respiratory: No deficits noted. GI: No signs and/or symptoms were reported involving the gastrointestinal system. : No signs and/or symptoms were reported regarding the genitourinary system. Derm: No deficits noted. Musculoskeletal: No deficits noted. Historical: - PMHx: 15:50 Bipolar disorder; Lupus; ss - PSHx: 15:50 ; ss - Immunization history:: Adult Immunizations up to date. - Coronavirus screen:: The patient has NOT traveled to [place], [place], or [place] in the past 14 days. The patient has NOT had contact with known/suspected case of Coronavirus?. - Social history:: Smoking status: Patient reports the use of cigarette tobacco products, denies chronic smoking, but will smoke occasionally. - Ebola Screening: : Patient negative for fever greater than or equal to 101.5 degrees Fahrenheit, and additional compatible Ebola Virus Disease symptoms Patient denies exposure to infectious person Patient denies travel to an Ebola-affected area in the 21 days before illness onset No symptoms or risks identified at this time. Screenin:12 Abuse screen: Denies threats or abuse. Denies injuries from another. Nutritional bp screening: No deficits noted. Tuberculosis screening: No symptoms or risk factors identified. Fall Risk None identified. Assessment: 16:12 General: SEE TRIAGE NOTE. bp 17:37 Reassessment: PT STATES RELIEF OF MAJOR S/S. OUT OF BED TO RESTROOM. bp 18:41 Reassessment: PT D/C HOME VIA W/C WITH HER FAMILY, DX WITH LUPUS ERYTHMATOSUS. bp Vital Signs: 15:57 BP 146 / 72; Pulse 97; Resp 18; Temp 97.2; Pulse Ox 98% on R/A; Pain 7/10; sg 17:36 BP 133 / 71; Pulse 67; Resp 16; Pulse Ox 98% ; bp 18:41 BP 121 / 69; Pulse 71; Resp 16; Temp 97.5; Pulse Ox 98% ; bp ED Course: 15:34 Patient arrived in ED. rg4 15:50 Arm band placed on. ss 15:51 Triage completed. ss 15:59 Conrad Samuel PA is PHCP. jm 15:59 Mik Boyd MD is Attending Physician. jmm 16:11 Toni Benton, [place] is Primary Nurse. bp 16:12 Patient has correct armband on for positive identification. Bed in low position. Call bp light in reach. Side rails up X2. 16:50 Inserted saline lock: 22 gauge in right forearm, using aseptic technique. Blood bp collected. 18:41 No provider procedures requiring assistance completed. IV discontinued, intact, bp bleeding controlled, No redness/swelling at site. Pressure dressing applied. Administered Medications: 16:50 Drug: SOLU-Medrol 125 mg Route: IVP; Site: right forearm; bp 17:40 Follow up: Response: No adverse reaction bp 16:50 Drug: NS 0.9% 1000 ml Route: IV; Rate: 1 bolus; Site: right forearm; bp 18:43 Follow up: IV Status: Completed infusion bp 16:50 Drug: morphine 2 mg Route: IVP; Site: right forearm; bp 17:39 Follow up: Response: Pain is decreased bp Outcome: 17:59 Discharge ordered by . jmm 18:41 Discharged to home via wheelchair, with family. bp 18:41 Condition: stable 18:41 Discharge instructions given to patient, Instructed on discharge instructions, follow up and referral plans. medication usage, Demonstrated understanding of instructions, follow-up care, medications, Prescriptions given X 2. 18:45 Patient left the ED. bp Signatures: Antoni Membreno, RN RN Conrad Luna PA PA jmm Smirch, Shelby, RN RN Anni Dietrich rg4 Toni Benton RN RN bp
[2019-08-22 19:03] VITALS: O2SAT 98
[2019-08-22 19:06] VITALS: BP 121/69; TEMP 97.5
== END 2019-08-22 18:45 | disposition home or self-care (01) ==
LOC: ER 15:32
DX: L93.0 Discoid lupus erythematosus (principal); F17.210 Nicotine dependence, cigarettes, uncomplicated
CPT/HCPCS: 36415; 80048; 80076; 83690; 85025; 96361; 96374; 96375; 99284; J2270; J2930; J7030

== ENCOUNTER 2019-09-11 02:51 | Emergency (ER) | payer SELFPAY ==
--- NOTE | 2019-09-11 03:31 | EDPHYS ---
Physician Documentation [facility] Name: Carmen Macias Age: 43 yrs Sex: Female : 1975 Arrival Date: 09/11/2019 Time: 02:53 Bed 7 Private MD: ED Physician Anderson Magana HPI: 09/11 03:30 This 43 yrs old Female presents to ER via Ambulatory with complaints of pain tw4 all over. 03:22 pain all over. tw4 03:30 Onset: The symptoms/episode began/occurred today. Pt states that her foot is swollen tw4 and painful and she thinks she has a blood clot. PT also states she is having a " lupus flare". 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 - Coronavirus screen:: The patient has NOT traveled to [place] in the past 14 days. Proceed with normal triage process as indicated. - Social history:: Smoking status: Patient reports the use of cigarette tobacco products, smokes one-half pack cigarettes per day. - Ebola Screening: : No symptoms or risks identified at this time. ROS: 03:30 Constitutional: Negative for fever, chills, and weight loss, Eyes: Negative for injury, tw4 pain, redness, and discharge, Cardiovascular: Negative for chest pain, palpitations, and edema, Respiratory: Negative for shortness of breath, cough, wheezing, and pleuritic chest pain, Abdomen/GI: Negative for abdominal pain, nausea, vomiting, diarrhea, and constipation, Skin: Negative for injury, rash, and discoloration, Neuro: Negative for headache, weakness, numbness, tingling, and seizure. 03:30 MS/extremity: Positive for pain, of the plantar aspect of left first toe, Negative for injury or acute deformity, abrasion, bite, contusion, decreased range of motion, deformity, ecchymosis, erythema, laceration, paresthesias, puncture, rash, swelling, tenderness. Exam: 03:30 Constitutional: This is a well developed, well nourished patient who is awake, alert, tw4 and in no acute distress. Head/Face: Normocephalic, atraumatic. Chest/axilla: Normal chest wall appearance and motion. Nontender with no deformity. No lesions are appreciated. Cardiovascular: Regular rate and rhythm with a normal S1 and S2. No gallops, murmurs, or rubs. Normal PMI, no JVD. No pulse deficits. Respiratory: Lungs have equal breath sounds bilaterally, clear to auscultation and percussion. No rales, rhonchi or wheezes noted. No increased work of breathing, no retractions or nasal flaring. Abdomen/GI: Soft, non-tender, with normal bowel sounds. No distension or tympany. No guarding or rebound. No evidence of tenderness throughout. Back: No spinal tenderness. No costovertebral tenderness. Full range of motion. Neuro: Awake and alert, GCS 15, oriented to person, place, time, and situation. Cranial nerves II-XII grossly intact. Motor strength 5/5 in all extremities. Sensory grossly intact. Cerebellar exam normal. Normal gait. 03:30 Musculoskeletal/extremity: Extremities: noted in the plantar aspect of left first toe: pain, abrasion, bite, contusion, decreased ROM, deformity, ecchymosis, erythema, laceration, puncture, rash, swelling, tenderness, negative homans sign no calf swelling to suggest DVT. Vital Signs: 03:09 BP 146 / 100; Pulse 80; Resp 18; Temp 98.4; Pulse Ox 99% on R/A; Weight 79.38 kg; aa1 Height 5 ft. 0 in. (152.40 cm); Pain 8/10; 03:09 Body Mass Index 34.18 (79.38 kg, 152.40 cm) aa1 MDM: 03:08 Patient medically screened. tw4 03:29 Data reviewed: vital signs, nurses notes. Medical screen evaluation completed. EMTALA 4 emergency medical condition absent. 03:30 Counseling: I had a detailed discussion with the patient and/or guardian regarding: the tw4 historical points, exam findings, and any diagnostic results supporting the discharge/admit diagnosis. Administered Medications: No medications were administered Disposition: 03:29 [facility] Disposition: 09/11/19 03:30 Discharged to Home. Impression: Myalgia. - Condition is Stable. - Medication Reconciliation Form, Thank You Letter, Antibiotic Education, Prescription Opioid Use form. - Follow up: Private Physician; When: Upon discharge from the Emergency Department; Reason: Recheck today's complaints, Continuance of care. - Problem is new. - Symptoms have improved. Signatures: Chelsie Mcfadden RN RN aa1 Anderson Magana MD MD tw4 Eldon García RN RN rr5 Corrections: (The following items were deleted from the chart) 03:32 03:22 This 43 yrs old Female presents to ER via Ambulatory with complaints of tw4 Blood Clot In Leg. tw4 03:35 03:30 09/11/2019 03:30 Discharged to Home. Impression: Myalgia. Condition is Stable. rr5 Forms are Medication Reconciliation Form, Thank You Letter, Antibiotic Education, Prescription Opioid Use. Follow up: Private Physician; When: Upon discharge from the Emergency Department; Reason: Recheck today's complaints, Continuance of care. Problem is new. Symptoms have improved. tw4
--- NOTE | 2019-09-11 03:31 | ER ---
Nurse's Notes [facility] Name: Carmen Macias Age: 43 yrs Sex: Female : 1975 Arrival Date: 09/11/2019 Time: 02:53 Bed 7 Private MD: Diagnosis: Myalgia Presentation: 09/11 03:09 Presenting complaint: Patient states: she is having a lupus flare and has been having aa1 pain in all of her joints x 3 days and tonight began to have severe pain in her L great toe. States, " I have been here every month for the past several months for this same thing because I moved here in January and haven't had the money to get a doctor for it.". Transition of care: patient was not received from another setting of care. Onset of symptoms was September 08, 2019. Risk Assessment: Do you want to hurt yourself or someone else? Patient reports no desire to harm self or others. Initial Sepsis Screen: Does the patient meet any 2 criteria? No. Patient's initial sepsis screen is negative. Does the patient have a suspected source of infection? No. Patient's initial sepsis screen is negative. Care prior to arrival: None. 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 - Coronavirus screen:: The patient has NOT traveled to [place] in the past 14 days. Proceed with normal triage process as indicated. - Social history:: Smoking status: Patient reports the use of cigarette tobacco products, smokes one-half pack cigarettes per day. - Ebola Screening: : No symptoms or risks identified at this time. Screenin:10 Abuse screen: Denies threats or abuse. Denies injuries from another. Nutritional aa1 screening: No deficits noted. Tuberculosis screening: No symptoms or risk factors identified. Fall Risk None identified. Assessment: 03:10 General: Appears in no apparent distress. comfortable, Behavior is calm, cooperative, aa1 appropriate for age. Pain: Complains of pain in plantar aspect of left first toe and all of her joints. Neuro: Level of Consciousness is awake, alert, obeys commands, Oriented to person, place, time, situation, Moves all extremities. Full function Gait is steady, Speech is normal. Respiratory: Airway is patent Respiratory effort is even, unlabored, Respiratory pattern is regular, symmetrical. GI: No signs and/or symptoms were reported involving the gastrointestinal system. : No signs and/or symptoms were reported regarding the genitourinary system. EENT: No signs and/or symptoms were reported regarding the EENT system. Derm: Skin is intact, is healthy with good turgor, Skin is pink, warm \\T\\ dry. Musculoskeletal: Circulation, motion, and sensation intact. Capillary refill < 3 seconds, Range of motion: intact in all extremities. Vital Signs: 03:09 BP 146 / 100; Pulse 80; Resp 18; Temp 98.4; Pulse Ox 99% on R/A; Weight 79.38 kg; aa1 Height 5 ft. 0 in. (152.40 cm); Pain 8/10; 03:09 Body Mass Index 34.18 (79.38 kg, 152.40 cm) aa1 ED Course: 02:53 Patient arrived in ED. cl3 03:08 Anderson Magana MD is Attending Physician. tw4 03:09 Patient placed in an exam room. aa1 03:10 Patient has correct armband on for positive identification. Placed in gown. Call light aa1 in reach. Pulse ox on. NIBP on. Warm blanket given. 03:10 No provider procedures requiring assistance completed. Patient did not have IV access aa1 during this emergency room visit. 03:20 Triage completed. aa1 Administered Medications: No medications were administered Outcome: 03:28 Medical screen evaluation completed per provider. Patient declined treatment. aa1 03:28 Condition: good 03:28 Following a medical screening exam, the patient was provided information regarding alternative care sites and resources available per registration personnel. 03:30 Discharge ordered by . tw4 03:35 Patient left the ED. rr5 Signatures: Chelsie Mcfadden RN RN aa1 Anderson Magana MD MD tw4 Eldon García RN RN rr5 Naheed Eddy cl3
[2019-09-11 03:46] VITALS: BP 146/100; TEMP 98.4; O2SAT 99
== END 2019-09-11 03:35 | disposition home or self-care (01) ==
LOC: ER 02:51
DX: M79.10 Myalgia, unspecified site (principal); F17.210 Nicotine dependence, cigarettes, uncomplicated
CPT/HCPCS: 99282

== ENCOUNTER 2019-09-13 15:12 | Emergency (ER) | payer SELFPAY ==
--- NOTE | 2019-09-13 16:41 | RAD REPORT ---
EXAM DESCRIPTION: RAD - Chest Pa And Lat (2 Views) - 09/13/2019 4:08 pm CLINICAL HISTORY: chest pain COMPARISON: Chest Single View dated 07/05/2019; Chest Pa And Lat (2 Views) dated 06/14/2019 TECHNIQUE: Frontal and lateral views of the chest were obtained. FINDINGS: The lungs are clear. Heart size is normal and central vasculature is within normal limit s. No pleural effusion or pneumothorax seen. No acute bony finding noted. No aortic abnormality. No significant change from comparison. IMPRESSION: No acute cardiopulmonary process.
--- NOTE | 2019-09-13 17:39 | ER ---
Nurse's Notes [facility] Name: Carmen Macias Age: 43 yrs Sex: Female : 1975 Arrival Date: 09/13/2019 Time: 15:14 Bed Waiting Private MD: Diagnosis: Presentation: 09/13 15:19 Presenting complaint: Patient states: "Im here for my lupus flare up and my heart is aj1 hurting and I feel real fatigued and my back hurts too." Reports that she has had chest pain for the past 2 days. Transition of care: patient was not received from another setting of care. Onset of symptoms was August 2019. Risk Assessment: Do you want to hurt yourself or someone else? Patient reports no desire to harm self or others. Initial Sepsis Screen: Does the patient meet any 2 criteria? HR > 90 bpm. No. Patient's initial sepsis screen is negative. Does the patient have a suspected source of infection? No. Patient's initial sepsis screen is negative. Care prior to arrival: None. 15:19 Method Of Arrival: Wheelchair aj 15:19 Method Of Arrival: Wheelchair aj 15:19 Acuity: SUSANNA 3 aj1 17:37 Note Patient notified registration staff that she is leaving. aj1 Triage Assessment: 15:22 General: Appears in no apparent distress. comfortable, Behavior is calm, cooperative, aj1 appropriate for age. Pain: Complains of pain in chest. Neuro: Level of Consciousness is awake, alert, obeys commands. Cardiovascular: Patient's skin is warm and dry. Respiratory: Airway is patent Respiratory effort is even, unlabored, Respiratory pattern is regular, symmetrical. PHYSICIAN LIAISON: 15:22 [facility] 08/2019 aj1 Historical: - Allergies: 15:22 No Known Allergies; aj1 - Home Meds: 15:22 Prednisone Oral [Active]; aj1 - PMHx: 15:22 Bipolar disorder; Lupus; aj1 - Immunization history:: Flu vaccine is not up to date. - Coronavirus screen:: The patient has NOT traveled to [place] in the past 14 days. - Social history:: Smoking status: Patient reports the use of cigarette tobacco products. - Ebola Screening: : Patient denies travel to an Ebola-affected area in the 21 days before illness onset. Screenin:45 Abuse screen: Denies threats or abuse. Nutritional screening: No deficits noted. vc Tuberculosis screening: No symptoms or risk factors identified. Fall Risk None identified. Assessment: 17:30 Pain: Pain does not radiate. Pain began gradually. vc Vital Signs: 15:22 BP 114 / 102; Pulse 90; Resp 18; Temp 99.0(TE); Pulse Ox 99% ; Weight 78.93 kg (R); aj1 Height 5 ft. 0 in. (152.40 cm) (R); Pain 8/10; 15:22 Body Mass Index 33.98 (78.93 kg, 152.40 cm) aj1 ED Course: 15:14 Patient arrived in ED. as 15:20 Triage completed. aj1 15:22 Arm band placed on Patient placed in waiting room, Patient notified of wait time. aj1 15:35 Bettina Quinteros FNP-C is PHCP. snw 15:35 Mik Boyd MD is Attending Physician. snw 17:22 Radiology exam delayed due to u/s attempted, informed by waiting room recreation therapist pt left sg3 the ER. 17:30 Patient has correct armband on for positive identification. vc 17:30 Pulse ox on. NIBP on. vc 17:33 Salud Marie, [place] is Primary Nurse. vc 17:35 No provider procedures requiring assistance completed. vc 17:35 Patient did not have IV access during this emergency room visit. Patient maintains SpO2 vc saturation greater than 95% on room air. Administered Medications: No medications were administered Outcome: 17:35 Discharged to home ambulatory. vc 17:35 Condition: good 17:35 Discharge instructions given to patient, Instructed on discharge instructions, follow up and referral plans. Demonstrated understanding of instructions, follow-up care. 17:38 Patient left the ED. aj1 Signatures: Carrie Perez, RN RN aj1 Bettina Quinteros FNP-C AFTER SCHOOL DRIVER-Rachel Wilson Sarah sg3 Salud Marie, DE KC vc
--- NOTE | 2019-09-13 17:40 | EDPHYS ---
Physician Documentation [facility] Name: Carmen Macias Age: 43 yrs Sex: Female : 1975 Arrival Date: 09/13/2019 Time: 15:14 Bed Waiting Private MD: ED Physician Mik Boyd HPI: 09/13 16:26 This 43 yrs old Female presents to ER via Wheelchair with complaints of Chest snw Pain, Lupus Flare. 16:26 Onset: The symptoms/episode began/occurred gradually, and became persistent 1 weeks snw ago. Associated signs and symptoms: Pertinent positives: chest pain, generalized malaise, fatigue. The patient has experienced similar episodes in the past. The patient has not recently seen a physician. Pt states she has not seen her PCP or had her medications in a while second to financial issues, pt states she stopped smoking 3 days ago. 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 - Coronavirus screen:: The patient has NOT traveled to [place] in the past 14 days. - Social history:: Smoking status: Patient reports the use of cigarette tobacco products. - Ebola Screening: : Patient denies travel to an Ebola-affected area in the 21 days before illness onset. ROS: 16:25 Eyes: Negative for injury, pain, redness, and discharge, ENT: Negative for injury, snw pain, and discharge, Neck: Negative for injury, pain, and swelling. 16:25 Respiratory: Negative for shortness of breath, cough, wheezing, and pleuritic chest pain, Abdomen/GI: Negative for abdominal pain, nausea, vomiting, diarrhea, and constipation, Back: Negative for injury and pain, : Negative for injury, bleeding, discharge, and swelling. 16:25 Skin: Negative for injury, rash, and discoloration, Neuro: Negative for headache, weakness, numbness, tingling, and seizure. 16:25 Constitutional: Positive for body aches, fatigue, malaise. 16:25 Cardiovascular: Positive for chest pain, with movement. 16:25 MS/extremity: Positive for decreased range of motion, pain, swelling, of the plantar aspect of left first toe, radiation up left leg, pain to calf. Exam: 16:24 Head/Face: Normocephalic, atraumatic. Eyes: Pupils equal round and reactive to light, snw extra-ocular motions intact. Lids and lashes normal. Conjunctiva and sclera are non-icteric and not injected. Cornea within normal limits. Periorbital areas with no swelling, redness, or edema. ENT: Nares patent. No nasal discharge, no septal abnormalities noted. Tympanic membranes are normal and external auditory canals are clear. Oropharynx with no redness, swelling, or masses, exudates, or evidence of obstruction, uvula midline. Mucous membranes moist. Neck: Trachea midline, no thyromegaly or masses palpated, and no cervical lymphadenopathy. Supple, full range of motion without nuchal rigidity, or vertebral point tenderness. No Meningismus. Chest/axilla: Normal chest wall appearance and motion. Nontender with no deformity. No lesions are appreciated. Cardiovascular: Regular rate and rhythm with a normal S1 and S2. No gallops, murmurs, or rubs. Normal PMI, no JVD. No pulse deficits. Respiratory: Lungs have equal breath sounds bilaterally, clear to auscultation and percussion. No rales, rhonchi or wheezes noted. No increased work of breathing, no retractions or nasal flaring. Abdomen/GI: Soft, non-tender, with normal bowel sounds. No distension or tympany. No guarding or rebound. No evidence of tenderness throughout. Back: No spinal tenderness. No costovertebral tenderness. Full range of motion. Skin: Warm, dry with normal turgor. Normal color with no rashes, no lesions, and no evidence of cellulitis. Neuro: Awake and alert, GCS 15, oriented to person, place, time, and situation. Cranial nerves II-XII grossly intact. Motor strength 5/5 in all extremities. Sensory grossly intact. Cerebellar exam normal. Normal gait. 16:24 Constitutional: The patient appears alert, awake, anxious. 16:24 Musculoskeletal/extremity: Extremities: grossly normal except: noted in the left leg: ROM: no acute changes, Circulation is intact in all extremities. 16:24 Psych: Behavior/mood is cooperative, anxious, Affect is animated, Oriented to person, place, time. Vital Signs: 15: BP 114 / 102; Pulse 90; Resp 18; Temp 99.0(TE); Pulse Ox 99% ; Weight 78.93 kg (R); aj1 Height 5 ft. 0 in. (152.40 cm) (R); Pain 8/10; 15:22 Body Mass Index 33.98 (78.93 kg, 152.40 cm) aj1 MDM: 16:18 Patient medically screened. snw 09/13 15:26 Order name: US Extremity Venous Unilateral Ltd aj 09/13 15:26 Order name: Chest Pa And Lat (2 Views) XRAY [facility] 09/13 14: Order name: Urine Dipstick-Ancillary (obtain specimen); Complete Time: :20 aj Administered Medications: No medications were administered Disposition: 17:54 Co-signature as Attending Physician, Mik Boyd MD. rn Disposition: 09/13/19 17:38 Patient left the facility post triage evaluation and consult. - Patient left due to wait time. Signatures: Dispatcher [employer] Carrie Lunsford, RN RN aj1 Bettina Quinteros, CALL CENTER CONSULTANT-C CALL CENTER CONSULTANT-Csnw Mik Boyd MD MD rn
[2019-09-13 18:21] VITALS: BP 114/102; TEMP 99; O2SAT 99
== END 2019-09-13 17:38 | disposition left against medical advice (07) ==
LOC: ER 15:12
DX: R07.9 Chest pain, unspecified (principal); Z53.29 Procedure and treatment not carried out because of patient's decision for other reasons
CPT/HCPCS: 71046; 99284

== ENCOUNTER 2019-09-15 09:57 | Emergency (ER) | payer SELFPAY ==
[2019-09-15] MEDS ORDERED: MORPHINE 4 MG/ML SYR ONE (10:54)
[2019-09-15] MEDS ORDERED: ONDANSETRON 4 MG/2 ML VIAL ONE (10:55)
[2019-09-15] MEDS ORDERED: NA CHLORIDE 0.9% 1,000 ML ONE (10:55)
[2019-09-15] MEDS ORDERED: METHYLPREDNISOLONE 125 MG INJ ONE (10:58)
[2019-09-15 11:01] LABS: Absolute Lymphocytes (CBC) 1.8 K/uL (0.7-4.9); Basophils % 1.5 % (0-1.3); Lymphocytes % 18.4 % (15.3-44.8); MPV 7.3 fL (7.6-11.3); RBC Red Blood Cell Count 4.28 M/uL (3.86-4.86)
[2019-09-15 11:02] LABS: Protime INR 1.07
--- NOTE | 2019-09-15 11:07 | RAD REPORT ---
EXAM DESCRIPTION: RAD - Chest Single View - 09/15/2019 10:58 am CLINICAL HISTORY: CHEST PAIN Chest pain. COMPARISON: Chest Pa And Lat (2 Views) dated 09/13/2019; Chest Single View dated 07/05/2019; Chest Pa And Lat (2 Views) dated 06/14/2019 FINDINGS: Portable technique limits examination quality. Lungs are underinflated resulting in vascular crowding. The heart is normal in size. No displaced fra ctures. IMPRESSION: Underinflated lungs.
[2019-09-15 11:25] LABS: ALT/SGPT 22 U/L (12-78); AST/SGOT 15 U/L (15-37); Albumin 2.7 g/dL (3.4-5.0); Alkaline Phosphatase 78 U/L (45-117); BUN Blood Urea Nitrogen 11 mg/dL (7-18); Bicarbonate 29 mmol/L (21-32); Bilirubin Direct 0.1 mg/dL (0-0.2); Bilirubin Total 0.4 mg/dL (0.2-1.0); Glucose Level 99 mg/dL (74-106); Magnesium 1.9 mg/dL (1.8-2.4); NT PRO-BNP 130 pg/mL (<125); Potassium 3.4 mmol/L (3.5-5.1); Protein, Total 7.4 g/dL (6.4-8.2); Sodium Level 138 mmol/L (136-145); Troponin (Emerg Dept Use Only) < 0.02 ng/mL (0.0-0.045)
--- NOTE | 2019-09-15 11:34 | EDPHYS ---
Physician Documentation [facility] Name: Carmen Macias Age: 43 yrs Sex: Female : 1975 Arrival Date: 09/15/2019 Time: 10:01 Bed 20 Private MD: ED Physician Gabbi Piedra HPI: 09/15 10:51 This 43 yrs old Female presents to ER via Wheelchair with complaints of Lupus ma2 flare up. 10:51 Onset: The symptoms/episode began/occurred gradually, 1 week(s) ago. Severity of ma2 symptoms: At their worst the symptoms were moderate. The patient has not experienced similar symptoms in the past. generalized joint pain, hx of lupus also states she had chest pain 2 days that resolved yesterday . 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 - Coronavirus screen:: The patient has NOT traveled to [place] in the past 14 days. The patient has NOT had contact with known/suspected case of Coronavirus? Proceed with normal triage procedures. - Social history:: Patient/guardian denies using alcohol, street drugs, Smoking status: Patient/guardian denies using tobacco. - Family history:: not pertinent. - Ebola Screening: : No symptoms or risks identified at this time. ROS: 10:51 Constitutional: Negative for fever, chills, and weight loss. ma2 10:51 All other systems are negative. Exam: 10:51 Constitutional: This is a well developed, well nourished patient who is awake, alert, ma2 and in no acute distress. Chest/axilla: Normal chest wall appearance and motion. Nontender with no deformity. No lesions are appreciated. Cardiovascular: Regular rate and rhythm with a normal S1 and S2. No gallops, murmurs, or rubs. Normal PMI, no JVD. No pulse deficits. Respiratory: Lungs have equal breath sounds bilaterally, clear to auscultation and percussion. No rales, rhonchi or wheezes noted. No increased work of breathing, no retractions or nasal flaring. Abdomen/GI: Soft, non-tender, with normal bowel sounds. No distension or tympany. No guarding or rebound. No evidence of tenderness throughout. Skin: Warm, dry with normal turgor. Normal color with no rashes, no lesions, and no evidence of cellulitis. MS/ Extremity: Pulses equal, no cyanosis. Neurovascular intact. Full, normal range of motion. Neuro: Awake and alert, GCS 15, oriented to person, place, time, and situation. Cranial nerves II-XII grossly intact. Motor strength 5/5 in all extremities. Sensory grossly intact. Cerebellar exam normal. Normal gait. Vital Signs: 10:16 BP 161 / 108; Pulse 89; Resp 16; Temp 98.4; Pulse Ox 100% on R/A; Weight 79.38 kg; hb Height 4 ft. 11 in. (149.86 cm); Pain 8/10; 10:45 BP 155 / 90; Pulse 75; Resp 16; Pulse Ox 96% ; Pain 8/10; jl7 11:30 BP 154 / 91; Pulse 74; Resp 16 S; Pulse Ox 100% on R/A; Pain 5/10; jl7 10:16 Body Mass Index 35.35 (79.38 kg, 149.86 cm) hb MDM: 10:25 Patient medically screened. ma2 10:51 Differential Diagnosis sle. Data reviewed: vital signs, nurses notes. Counseling: I had ma2 a detailed discussion with the patient and/or guardian regarding: the historical points, exam findings, and any diagnostic results supporting the discharge/admit diagnosis, the presence of at least one elevated blood pressure reading (>120/80) during this emergency department visit, the need for outpatient follow up. Response to treatment: the patient's symptoms have markedly improved after treatment. 09/15 10:36 Order name: Basic Metabolic Panel; Complete Time: 11:09/15 10:36 Order name: CBC with Diff 09/15 10:36 Order name: LFT's; Complete Time: 11:09/15 10:36 Order name: Magnesium; Complete Time: 11:09/15 10:36 Order name: NT PRO-BNP; Complete Time: 11:09/15 10:36 Order name: PT-INR 09/15 10:36 Order name: Troponin (emerg Dept Use Only); Complete Time: 11:32 09/15 10:36 Order name: XRAY Chest (1 view) 09/15 10:36 Order name: EKG; Complete Time: 10:38 09/15 11:04 Order name: Urine Dipstick--Ancillary (enter results) 09/15 10:36 Order name: Cardiac monitoring; Complete Time: 10:53 09/15 10:36 Order name: EKG - Nurse/Tech; Complete Time: 11:02 09/15 10:36 Order name: IV Saline Lock; Complete Time: 10:53 09/15 10:36 Order name: Labs collected and sent; Complete Time: 10:53 09/15 10:36 Order name: O2 Per Protocol; Complete Time: 10:53 09/15 10:36 Order name: O2 Sat Monitoring; Complete Time: 10:53 09/15 10:36 Order name: Urine Dipstick-Ancillary (obtain specimen); Complete Time: 10:52 [facility] Administered Medications: 10:54 Drug: Zofran 4 mg Route: IVP; Site: right forearm; jl7 11:15 Follow up: Response: No adverse reaction 7 10:54 Drug: NS 0.9% 1000 ml Route: IV; Rate: 1 bolus; Site: right forearm; jl7 11:30 Follow up: Response: No adverse reaction; IV Status: Completed infusion; IV Intake: jl7 1000ml 10:56 Drug: morphine 4 mg Route: IVP; Site: right forearm; jl7 11:15 Follow up: Response: No adverse reaction; Pain is decreased jl7 10:59 Drug: MethylPrednisoLONE 80 mg Route: IVP; Site: right forearm; jl7 11:15 Follow up: Response: No adverse reaction [facility] Disposition: 09/15/19 11:33 Discharged to Home. Impression: Lupus erythematosus. - Condition is Stable. - Prescriptions for Tylenol- Codeine #3 300-30 mg Oral Tablet - take 2 tablet by ORAL route every 6 hours As needed; 30 tablet. Valium 10 mg Oral Tablet - take 1 tablet by ORAL route every 8 hours As needed; 20 tablet. Zofran 4 mg Oral Tablet - take 1 tablet by ORAL route every 12 hours As needed; 6 tablet. Medrol (Suraj) 4 mg Oral Tablets, Dose Pack - take 1 tablet by ORAL route as directed - follow package instructions; 1 packet. - Medication Reconciliation Form, Thank You Letter, Antibiotic Education, Prescription Opioid Use form. - Follow up: Private Physician; When: Tomorrow; Reason: Continuance of care. Signatures: Dispatcher [employer] EDUT Edel Alicia RN RN Calvin Dooley RN RN jl7 Gabbi Piedra MD MD ma2 Corrections: (The following items were deleted from the chart) 11:53 11:33 09/15/2019 11:33 Discharged to Home. Impression: Lupus erythematosus. Condition jl7 is Stable. Prescriptions for Tylenol-Codeine #3 300-30 mg Oral Tablet - take 2 tablet by ORAL route every 6 hours As needed; 30 tablet, Valium 10 mg Oral Tablet - take 1 tablet by ORAL route every 8 hours As needed; 20 tablet, Zofran 4 mg Oral Tablet - take 1 tablet by ORAL route every 12 hours As needed; 6 tablet, Medrol (Suraj) 4 mg Oral Tablets, Dose Pack - take 1 tablet by ORAL route as directed - follow package instructions; 1 packet. and Forms are Medication Reconciliation Form, Thank You Letter, Antibiotic Education, Prescription Opioid Use. Follow up: Private Physician; When: Tomorrow; Reason: Continuance of care. ma2
--- NOTE | 2019-09-15 11:34 | ER ---
Nurse's Notes [facility] Name: Carmen Macias Age: 43 yrs Sex: Female : 1975 Arrival Date: 09/15/2019 Time: 10:01 Bed 20 Private MD: Diagnosis: Lupus erythematosus Presentation: 09/15 10:14 Presenting complaint: Pain all over x 1 week. Transition of care: patient was not hb received from another setting of care. Onset of symptoms was September 09, 2019. Risk Assessment: Do you want to hurt yourself or someone else? Patient reports no desire to harm self or others. Care prior to arrival: Medication(s) given: Tylenol, at 0600. 10:14 Method Of Arrival: Wheelchair hb 10:14 Acuity: SUSANNA 3 hb 10:30 Initial Sepsis Screen: Does the patient meet any 2 criteria? No. Patient's initial jl7 sepsis screen is negative. Does the patient have a suspected source of infection? No. Patient's initial sepsis screen is negative. 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 - Coronavirus screen:: The patient has NOT traveled to [place] in the past 14 days. The patient has NOT had contact with known/suspected case of Coronavirus? Proceed with normal triage procedures. - Social history:: Patient/guardian denies using alcohol, street drugs, Smoking status: Patient/guardian denies using tobacco. - Family history:: not pertinent. - Ebola Screening: : No symptoms or risks identified at this time. Screenin:45 Abuse screen: Denies threats or abuse. Denies injuries from another. Nutritional jl7 screening: No deficits noted. Tuberculosis screening: No symptoms or risk factors identified. Fall Risk IV access (20 points). Total Green Fall Scale indicates No Risk (0-24 pts). Assessment: 10:45 General: Appears in no apparent distress. uncomfortable, Behavior is cooperative. Pain: jl7 Complains of pain in "All over", "All of my joints" Pain currently is 8 out of 10 on a pain scale. Neuro: Level of Consciousness is awake, alert, obeys commands, Oriented to person, place, time, situation. Cardiovascular: Patient's skin is warm and dry. Respiratory: Airway is patent Respiratory effort is even, unlabored, Respiratory pattern is regular, symmetrical. Derm: Skin is pink, warm \\T\\ dry. 11:30 Reassessment: Patient appears in no apparent distress at this time. Patient and/or jl7 family updated on plan of care and expected duration. Pain level reassessed. reports pain 5/10. Vital Signs: 10:16 BP 161 / 108; Pulse 89; Resp 16; Temp 98.4; Pulse Ox 100% on R/A; Weight 79.38 kg; hb Height 4 ft. 11 in. (149.86 cm); Pain 8/10; 10:45 BP 155 / 90; Pulse 75; Resp 16; Pulse Ox 96% ; Pain 8/10; jl7 11:30 BP 154 / 91; Pulse 74; Resp 16 S; Pulse Ox 100% on R/A; Pain 5/10; jl7 10:16 Body Mass Index 35.35 (79.38 kg, 149.86 cm) hb ED Course: 10:01 Patient arrived in ED. mr 10:16 Triage completed. hb 10:16 Arm band placed on. hb 10:25 Gabbi Piedra MD is Attending Physician. ma2 10:30 Calvin Dooley, [place] is Primary Nurse. jl7 10:45 Patient has correct armband on for positive identification. Placed in gown. Bed in low jl7 position. Call light in reach. Side rails up X 1. Pulse ox on. NIBP on. Warm blanket given. 10:45 Initial lab(s) drawn, by de, sent to lab. Inserted saline lock: 20 gauge in right jl7 antecubital area, using aseptic technique. Blood collected. 11:05 XRAY Chest (1 view) In Process Unspecified. EDMS 11:06 EKG done, by boiler/chiller technician. reviewed by Gabbi Piedra MD. at1 11:50 No provider procedures requiring assistance completed. IV discontinued, intact, jl7 bleeding controlled, No redness/swelling at site. Pressure dressing applied. Administered Medications: 10:54 Drug: Zofran 4 mg Route: IVP; Site: right forearm; jl7 11:15 Follow up: Response: No adverse reaction jl7 10:54 Drug: NS 0.9% 1000 ml Route: IV; Rate: 1 bolus; Site: right forearm; jl7 11:30 Follow up: Response: No adverse reaction; IV Status: Completed infusion; IV Intake: jl7 1000ml 10:56 Drug: morphine 4 mg Route: IVP; Site: right forearm; jl7 11:15 Follow up: Response: No adverse reaction; Pain is decreased jl7 10:59 Drug: MethylPrednisoLONE 80 mg Route: IVP; Site: right forearm; jl7 11:15 Follow up: Response: No adverse reaction jl7 Intake: 11:30 IV: 1000ml; Total: 1000ml. jl7 Outcome: 11:30 Discharged to home ambulatory. 7 11:30 Condition: stable 11:30 Discharge instructions given to patient, family, Instructed on discharge instructions, follow up and referral plans. medication usage, Demonstrated understanding of instructions, follow-up care, medications, Prescriptions given X 4. 11:33 Discharge ordered by . vanessa 11:53 Patient left the ED. jl7 Signatures: Dispatcher [employer] [facility] Pina DelacruzNunu, event lighting specialist EKG Tat1 Edel Alicia RN RN hb Leal, Jahala, RN RN jl7 Gabbi Piedra MD MD ma2
[2019-09-15 11:49] LABS: Urine Blood TRACE (NEG); Urine Glucose NEGATIVE (NEG); Urine Protein TRACE (NEG)
[2019-09-15 12:08] VITALS: TEMP 98.4
--- NOTE | 2019-09-15 12:08 | EKG ---
Test Date: 2019-09-15 Test Time: 11:00:24 Honest John Rocket Crew Member: SUSHMA MEASUREMENT RESULTS: Intervals: Rate: 74 NJ: 150 QRSD: 80 QT: 428 QTc: 475 Ashby: P: 11 NJ: 150 QRS: 9 T: 67 INTERPRETIVE STATEMENTS: Normal sinus rhythm Normal ECG Compared to ECG 07/05/2019 19:06:07 T-wave abnormality no longer present Electronically Signed On 09-15-19 12:08:13 ELECTRICAL SOLDERER by Alec Velasquez
[2019-09-15 12:10] VITALS: BP 154/91; O2SAT 100
== END 2019-09-15 11:53 | disposition home or self-care (01) ==
LOC: ER 09:57
DX: L93.0 Discoid lupus erythematosus (principal)
CPT/HCPCS: 36415; 71045; 80048; 80076; 81003; 83735; 83880; 84484; 85025; 85610; 93005; 96361; 96374; 96375; 99284; J2405; J2930; J7030

== ENCOUNTER 2019-09-30 22:34 | Emergency (ER) | payer SELFPAY ==
[2019-09-30] MEDS ORDERED: FENTANYL CITR 100 MCG/2 ML ONE (23:28)
[2019-09-30 23:47] LABS: Absolute Lymphocytes (CBC) 1.4 K/uL (0.7-4.9); Basophils % 0.6 % (0-1.3); Lymphocytes % 14.3 % (15.3-44.8); MPV 7.4 fL (7.6-11.3); RBC Red Blood Cell Count 4.12 M/uL (3.86-4.86)
[2019-09-30 23:48] LABS: Protime INR 1.1
[2019-09-30 23:59] LABS: ALT/SGPT 17 U/L (12-78); AST/SGOT 10 U/L (15-37); Albumin 2.5 g/dL (3.4-5.0); Alkaline Phosphatase 72 U/L (45-117); BUN Blood Urea Nitrogen 11 mg/dL (7-18); Bicarbonate 28 mmol/L (21-32); Bilirubin Direct 0.1 mg/dL (0-0.2); Bilirubin Total 0.3 mg/dL (0.2-1.0); Glucose Level 101 mg/dL (74-106); Magnesium 2.1 mg/dL (1.8-2.4); Potassium 3.4 mmol/L (3.5-5.1); Sodium Level 136 mmol/L (136-145)
[2019-10-01] MEDS ORDERED: POTASSIUM 25 MEQ EFFERV TAB ONE (00:24)
[2019-10-01] MEDS ORDERED: METHYLPREDNISOLONE 125 MG INJ ONE (00:24)
[2019-10-01 00:41] LABS: NT PRO-BNP 100 pg/mL (<125)
[2019-10-01 01:52] LABS: Barbiturates NEGATIVE (NEGATIVE); Benzodiazepines POSITIVE (NEGATIVE); Cocaine NEGATIVE (NEGATIVE); METHAMPHETAM POSITIVE (NEGATIVE); Methadone NEGATIVE (NEGATIVE); Opiates NEGATIVE (NEGATIVE); Phencyclidine NEGATIVE (NEGATIVE); THC Cannibis POSITIVE (NEGATIVE)
--- NOTE | 2019-10-01 02:06 | EDPHYS ---
Physician Documentation [facility] Name: Carmen Macias Age: 44 yrs Sex: Female : 1975 Arrival Date: 09/30/2019 Time: 22:37 Bed 14 Private MD: ED Physician Anderson Magana HPI: 09/29 23:20 This 44 yrs old Female presents to ER via Wheelchair with complaints of Feet cp Swelling. 23:20 generalized pain. cp 23:20 Onset: The symptoms/episode began/occurred 3 day(s) ago. cp 23:20 Severity of symptoms: in the emergency department the symptoms are unchanged despite cp home interventions. 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 - Social history:: Smoking status: Patient/guardian denies using tobacco, Patient/guardian denies using alcohol, street drugs, IV drugs. ROS: 23:30 Constitutional: Negative for body aches, chills, fever, poor PO intake. cp 23:30 Eyes: Negative for injury, pain, redness, and discharge. cp Exam: 23:35 Constitutional: The patient appears in no acute distress, alert, awake, cp non-diaphoretic, non-toxic, well developed, well nourished, uncomfortable. 23:35 Head/Face: Normocephalic, atraumatic. cp 23:40 ECG was reviewed by the Attending Physician. cp Vital Signs: 22:56 BP 139 / 75; Pulse 85; Resp 18; Temp 97.87; Pulse Ox 98% on R/A; Weight 79.38 kg; mg2 Height 5 ft. 0 in. (152.40 cm); Pain 01/29; 09/30 01:47 BP 113 / 57; Pulse 74; Resp 18; Pulse Ox 98% on R/A; mg2 09/29 22:56 Body Mass Index 34.18 (79.38 kg, 152.40 cm) mg2 MDM: 09/29 22:53 Patient medically screened. cp 09/30 02:02 Data reviewed: vital signs, nurses notes, lab test result(s), EKG, and as a result, I will discharge patient. 09/29 23:19 Order name: UDS; Complete Time: 01:55 cp 09/30 01:55 Interpretation: Normal except: BZO POSITIVE; METHAMPHETAMINE POSITIVE; THC POSITIVE. cp 09/29 23:19 Order name: Basic Metabolic Panel; Complete Time: 01:26 cp 09/30 00:11 Interpretation: Normal except: K 3.4. cp 09/29 23:19 Order name: CBC with Diff; Complete Time: 00:11 cp 09/30 00:11 Interpretation: Normal except: HGB 10.8; HCT 33.0; MCH 26.3; RDW 15.7; MPV 7.4; LYM% cp 14.3. 09/29 23:19 Order name: LFT's; Complete Time: 01:26 cp 09/30 01:27 Interpretation: Normal except: AST 10; ALB 2.5; GLOB 4.5; A/G 0.6. cp 09/29 23:19 Order name: Magnesium; Complete Time: :26 cp 09/29 23:19 Order name: PT-INR; Complete Time: 00:11 cp 09/29 23:19 Order name: Urine Dipstick-Ancillary (obtain specimen); Complete Time: 01:14 cp 09/29 23:19 Order name: Urine Test (obtain specimen); Complete Time: 01:14 cp 09/29 23:19 Order name: Cardiac monitoring; Complete Time: 23:41 cp 09/30 00:23 Order name: NT PRO-BNP; Complete Time: :26 EDMS 09/29 23:19 Order name: IV Saline Lock; Complete Time: 23:41 cp 09/29 23:19 Order name: Labs collected and sent; Complete Time: 23:41 cp 09/29 23:19 Order name: O2 Per Protocol; Complete Time: 23:41 cp 09/29 23:19 Order name: O2 Sat Monitoring; Complete Time: 23:41 cp EC/10 23:40 Rate is 83 beats/min. Rhythm is regular. MN interval is normal. QRS interval is normal. cp QT interval is normal. Interpreted by me. Reviewed by me. Administered Medications: 23:25 Drug: fentaNYL (PF) 25 mcg Route: IVP; Site: right forearm; mg2 09/30 02:35 Follow up: Response: No adverse reaction; RASS: Drowsy (-1) mg2 00:23 Drug: Potassium Effervescent Tablet 25 mEq Route: PO; mg2 02:35 Follow up: Response: No adverse reaction mg2 00:24 Drug: SOLU-Medrol 60 mg Route: IVP; Site: right forearm; mg2 02:35 Follow up: Response: No adverse reaction mg2 Disposition: 07:03 Co-signature as Attending Physician, Andersno Magana MD I agree with the assessment and 4 plan of care. Disposition: 10/01/19 02:03 Discharged to Home. Impression: Acute pain, not elsewhere classified - Lupus flare-up, Recreational drug abuse. - Condition is Stable. - Discharge Instructions: Systemic Lupus Erythematosus, Adult, Stimulant Use Disorder-Methamphetamines. - Prescriptions for Prednisone 20 mg Oral Tablet - take 2 tablet by ORAL route once daily for 5 days; 10 tablet. - Medication Reconciliation Form, Thank You Letter, Antibiotic Education, Prescription Opioid Use form. - Follow up: Private Physician; When: 1 - 2 days; Reason: Recheck today's complaints. - Problem is an acute exacerbation. - Symptoms have improved. Signatures: Dispatcher [employer] EDVA Singh Rey PA PA Anderson Magana MD MD 4 Juan Bynum RN RN mg2 Corrections: (The following items were deleted from the chart) 00:22 00:13 PROBNP+C.LAB.BRZ ordered. [facility] EDMS 02:36 02:03 10/01/2019 02:03 Discharged to Home. Impression: Acute pain, not elsewhere mg2 classified - Lupus flare-up; Recreational drug abuse. Condition is Stable. Forms are Medication Reconciliation Form, Thank You Letter, Antibiotic Education, Prescription Opioid Use. Follow up: Private Physician; When: 1 - 2 days; Reason: Recheck today's complaints. Problem is an acute exacerbation. Symptoms have improved. cp
--- NOTE | 2019-10-01 02:37 | ER ---
Nurse's Notes [facility] Name: Carmen Macias Age: 44 yrs Sex: Female : 1975 Arrival Date: 09/30/2019 Time: 22:37 Bed 14 Private MD: Diagnosis: Acute pain, not elsewhere classified-Lupus flare-up;Recreational drug abuse Presentation: 09/29 22:56 Chief complaint: Patient states: i have lupus flare up. both of my ankle and hand are mg2 swollen and been painful for 3 days now. Coronavirus screen: The patient has NOT traveled to a country currently being monitored by the [facility] within the last 14 days. Proceed with normal triage procedures. The patient has NOT had contact with any known and/or suspected case of coronavirus. Proceed with normal triage procedures. Ebola Screen: No symptoms or risks identified at this time. Initial Sepsis Screen: Does the patient meet any 2 criteria? No. Patient's initial sepsis screen is negative. Does the patient have a suspected source of infection? No. Patient's initial sepsis screen is negative. Risk Assessment: Do you want to hurt yourself or someone else? Patient reports no desire to harm self or others. 22:56 Method Of Arrival: Wheelchair mg2 22:56 Acuity: SUSANNA 3 mg2 22:59 Onset of symptoms was September 2019. 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 - Social history:: Smoking status: Patient/guardian denies using tobacco, Patient/guardian denies using alcohol, street drugs, IV drugs. Screenin:59 Abuse screen: Denies threats or abuse. Denies injuries from another. Nutritional mg2 screening: No deficits noted. Tuberculosis screening: No symptoms or risk factors identified. Fall Risk Gait- Weak (10 pts.). Assessment: 22:58 General: Appears in no apparent distress. comfortable, Behavior is calm, cooperative. mg2 Pain: Complains of pain in right hand, left hand, right foot and left foot. Neuro: Level of Consciousness is awake, alert, obeys commands, Oriented to person, place, time, situation. Cardiovascular: Capillary refill < 3 seconds Patient's skin is warm and dry. Respiratory: Airway is patent Respiratory effort is even, unlabored, Respiratory pattern is regular, symmetrical. GI: No signs and/or symptoms were reported involving the gastrointestinal system. : No signs and/or symptoms were reported regarding the genitourinary system. EENT: No signs and/or symptoms were reported regarding the EENT system. Derm: Skin is intact, is healthy with good turgor, Skin is pink, warm \T\ dry. normal. Musculoskeletal: Swelling present in right hand, left hand, right foot and left foot Reports pain in right hand, left hand, right foot and left foot. 09/30 02:36 Reassessment: Patient appears in no apparent distress at this time. Patient states mg2 feeling better. Vital Signs: 09/29 22:56 BP 139 / 75; Pulse 85; Resp 18; Temp 97.87; Pulse Ox 98% on R/A; Weight 79.38 kg; mg2 Height 5 ft. 0 in. (152.40 cm); Pain 01/29; 09/30 01:47 BP 113 / 57; Pulse 74; Resp 18; Pulse Ox 98% on R/A; mg2 09/29 22:56 Body Mass Index 34.18 (79.38 kg, 152.40 cm) mg2 ED Course: 09/29 22:37 Patient arrived in ED. cl3 22:44 Singh Rey PA is PHCP. cp 22:44 Anderson Magana MD is Attending Physician. cp 22:56 Juan Bynum RN is Primary Nurse. mg2 22:57 Triage completed. mg2 22:57 Arm band placed on. mg2 22:59 Patient has correct armband on for positive identification. mg2 22:59 No provider procedures requiring assistance completed. mg2 23:24 Inserted saline lock: 20 gauge in right forearm, using aseptic technique. Blood mg2 collected. 09/30 02:35 IV discontinued, intact, bleeding controlled, No redness/swelling at site. Pressure mg2 dressing applied. Administered Medications: 09/29 23:25 Drug: fentaNYL (PF) 25 mcg Route: IVP; Site: right forearm; mg2 09/30 02:35 Follow up: Response: No adverse reaction; RASS: Drowsy (-1) mg2 00:23 Drug: Potassium Effervescent Tablet 25 mEq Route: PO; mg2 02:35 Follow up: Response: No adverse reaction mg2 00:24 Drug: SOLU-Medrol 60 mg Route: IVP; Site: right forearm; mg2 02:35 Follow up: Response: No adverse reaction mg2 Outcome: 02:03 Discharge ordered by . cp 02:36 Discharged to home via wheelchair, with family. mg2 02:36 Condition: good 02:36 Discharge instructions given to patient, family, Instructed on discharge instructions, follow up and referral plans. medication usage, Demonstrated understanding of instructions, follow-up care, medications, Prescriptions given X 1. 02:36 Patient left the ED. mg2 Signatures: Singh Rey PA PA cp Juan Bynum, [place] RN mg2 Naheed Eddy cl3
[2019-10-01 02:56] VITALS: BP 113/57; O2SAT 98
--- NOTE | 2019-10-01 09:26 | EKG ---
Test Date: 2019-09-30 Test Time: 23:34:24 Account Services Coordinator: SHAHLA MEASUREMENT RESULTS: Intervals: Rate: 83 GA: 148 QRSD: 84 QT: 398 QTc: 467 [place]: P: 17 GA: 148 QRS: 3 T: 67 INTERPRETIVE STATEMENTS: Normal sinus rhythm normal ECG Compared to ECG 09/15/2019 11:00:24 no significant change from previous ECG Electronically Signed On 10-01-19 09:25:55 CDT by Alec Velasquez
== END 2019-10-01 02:36 | disposition home or self-care (01) ==
LOC: ER 22:34
DX: M32.9 Systemic lupus erythematosus, unspecified (principal); R52 Pain, unspecified; F19.10 Other psychoactive substance abuse, uncomplicated
CPT/HCPCS: 36415; 80048; 80076; 80307; 83735; 83880; 85025; 85610; 93005; 96374; 96375; 99284; J2930; J3010